=== PATIENT | male | born 1985 | race Caucasian/White ===

== ENCOUNTER 2019-01-09 18:47 | Emergency (ER) | payer SELFPAY ==
[~2019-01-09] VITALS: Ht 187.9 cm; Wt 98.0 kg
[2019-01-09] MEDS ORDERED: LIDOCAINE 1% INJ 20 ML 20 ML VIAL ONE (18:48)
[2019-01-09] MEDS ORDERED: LIDOCAINE 1% INJ 20 ML 20 ML VIAL INJ ONE (19:00)
--- NOTE | 2019-01-09 19:19 | ED Upper Extremity ---
General Chief Complaint: Laceration Stated Complaint: R HAND THUMB INJ Source: patient Exam Limitations: no limitations History of Present Illness Date Seen by Provider: Jan 09, 2019 Time Seen by Provider: 19:16 Initial Comments To ER by private vehicle with reports of a laceration to the right thumb that occurred earlier today while at work after a piece of sheet metal cut him, about 3 PM. Tetanus is up-to-date within the past 5 years he states, this is not Workmen's Comp. he states. He is right-hand dominant Onset: just prior to arrival Severity: moderate Pain/Injury Location: right hand, right thumb Modifying Factors: Improves With Movement Allergies and Home Medications Allergies Coded Allergies: No Known Drug Allergies (Unverified , 01/09/19) Patient Home Medication List Home Medication List Reviewed: Yes Review of Systems Constitutional: see HPI EENTM: see HPI Respiratory: no symptoms reported Cardiovascular: no symptoms reported Genitourinary: no symptoms reported Musculoskeletal: no symptoms reported Skin: no symptoms reported Psychiatric/Neurological: No Symptoms Reported Past Bivuxin-Vaxqcy-Tvpgmi Hx Patient Social History Recent Foreign Travel: No Contact w/Someone Who Travel: No Physical Exam Vital Signs Capillary Refill : Height, Weight, BMI Height: '" Weight: lbs. oz. kg; BMI Method: General Appearance: WD/WN, no apparent distress HEENT: PERRL/EOMI, normal ENT inspection Respiratory: no respiratory distress, no accessory muscle use Shoulder: normal inspection, non-tender Elbow/Forearm: normal inspection, non-tender Wrist: Yes normal inspection, Yes non-tender Hand: Right, laceration (2 separate 2 semi-lacerations, one of the dorsal aspect proximal phalanx right thumb down to the subcutaneous tissues, extensor tendon is not involved. Separate 2 semi-laceration over the distal aspect of the first metacarpal.) Neurologic/Tendon: normal sensation, normal motor functions, normal tendon functions Neurologic/Psychiatric: alert, normal mood/affect, oriented x 3 Skin: normal color, warm/dry Procedures/Interventions Wound Location: Upper Extremities Wound Length (cm): 4 Wound's Depth, Shape: linear, sub Q Wound Explored: clean Irrigated w/ Saline (ccs): 40 Anesthesia: 1% Lidocaine Suture: Prolene Suture Size: 4-0 Number of Sutures: 10 Layer Closure?: 1 Number Deep Layer Sutures: 0 Progress Anesthetized locally with a total of 6 mL of 1% lidocaine without epinephrine buffered with sodium bicarbonate and a 1-10 ratio. Area was then scrubbed with waxing/saline solution, no foreign bodies identified, area irrigated then closed with a total of 10 simple interrupted sutures size 4-0 Prolene. Covered with anabolic ointment, gauze and Coban. Progress/Results/Core Measures Results/Orders My Orders Orders - EDITH WOOTEN APRN Lidocaine 1% Inj 20 Ml (Xylocaine 1% Inj (01/09/19 19:00) Lidocaine 1% Inj 20 Ml (Xylocaine 1% Inj (01/09/19 18:48) Departure Impression Primary Impression: Hand laceration Qualified Codes: S61.411A - Laceration without foreign body of right hand, initial encounter Disposition: 01 HOME, SELF-CARE Condition: Stable Departure-Patient Inst. Decision time for Depature: 19:20 Referrals: NO,LOCAL PHYSICIAN (PCP/Family) Primary Care Physician Patient Instructions: Laceration Repair With Stitches (DC) Add. Discharge Instructions: Leave this dressing in place clean and dry until tomorrow. Tomorrow, you can wash it gently with soap and water starting tomorrow. Do not soak it beneath water however such as a [place] stream pond or swimming pool until the stitches have been removed. Return to ER in about 10 days to have the stitches removed. All discharge instructions reviewed with patient and/or family. Voiced understanding. Scripts Hydrocodone/Acetaminophen ([place] 5-325 Tablet) 1 Each Tablet 1 TAB PO Q6H for Pain MDD 10 TABS for 7 Days, #5 TAB Prov: EDITH WOOTEN APRN 01/09/19 Cephalexin (Keflex) 500 Mg Capsule 500 MG PO TID, #21 CAP Prov: EDITH WOOTEN APRN 01/09/19 Images Extremities-Upper 1 - Other-See Progress Note 2 - EDITH WOOTEN APRN Jan 09, 2019 19:19
[2019-01-09] MEDS ORDERED: CEPH-507 PO (19:21)
[2019-01-09] MEDS ORDERED: HYDR-4226 PO (19:22)
[2019-01-09 19:25] VITALS: BP 145/80
== END 2019-01-09 19:25 | disposition home or self-care (01) ==
LOC: ER 18:48
DX: S61.411A Laceration without foreign body of right hand, initial encounter (principal); W26.8XXA Contact with other sharp object(s), not elsewhere classified, initial encounter; Y92.59 Other trade areas as the place of occurrence of the external cause
CPT/HCPCS: 12042

== ENCOUNTER 2019-03-20 08:39 | Inpatient (IN) | payer SELFPAY ==
[2019-03-20] VITALS (18 sets, daily range): BP systolic 99–145; BP diastolic 54–86
[~2019-03-20] VITALS: Ht 187 cm; Wt 97.7 kg
[~2019-03-20 08:39] MED LIST: CEPH-507 PO; HYDR-4226 PO
[2019-03-20] MEDS ORDERED: ASPIRIN 81 MG CHEW (CHILDREN'S ASA) PO ONE (08:45)
[2019-03-20] MEDS ORDERED: morphine INJ 10 MG/ML 1ML (SYR OR VIAL) IV STA (08:45)
[2019-03-20] MEDS ORDERED: LACTATED RINGERS 1,000 ML IV ONE (08:45)
[2019-03-20] MEDS: NITROGLYCERIN 0.4 MG SL TABS BTL 25'S SL PRN ×3 (08:53→09:25)
[2019-03-20] MEDS ORDERED: ONDANSETRON 4 MG/2 ML (SDV) Z0FRAN ONE ×2 (08:58→10:32)
--- NOTE | 2019-03-20 08:59 | ED Chest Pain ---
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 Nursing Sepsis Screen: No Definite Risk Source: patient History of Present Illness Date Seen by Provider: Mar 20, 2019 Time Seen by Provider: 08:40 Initial Comments Here with report of central chest pain that started 10 minutes prior to arrival. States he was driving at the time. Arrives sweating with report of nausea and vomiting. Never had anything like this before. States that he may have high blood pressure but is not treated. Otherwise no other significant medical problems. He did drink a fair amount of beer last night but doesn't drink typically. Does not use drugs although does have history. States there is family history of heart disease. Timing/Duration: 1/2 hour Severity/Quality: moderate, severe, pressure Location: central Radiation: no radiation Activities at Onset: none Prior CP/Workup: no prior chest pain, no prior cardiac workup Modifying Factors: worse with movement ASA po MUSIC EDUCATION DIRECTOR: No NTG SL MUSIC EDUCATION DIRECTOR: No Associated Symptoms: No abdominal pain, No back pain; diaphoresis, nausea/vomiting; No shortness of breath, No weakness Allergies and Home Medications Allergies Coded Allergies: No Known Drug Allergies (Unverified , 01/09/19) Patient Home Medication List Home Medication List Reviewed: Yes Review of Systems Review of Systems Constitutional: see HPI EENTM: No Symptoms Reported Respiratory: See HPI Cardiovascular: See HPI, Chest Pain; Denies Irregular Heart Rate Gastrointestinal: See HPI; Denies Abdominal Pain, Denies Diarrhea Genitourinary: No Symptoms Reported Musculoskeletal: no symptoms reported Skin: no symptoms reported Psychiatric/Neurological: No Symptoms Reported All Other Systems Reviewed Negative Unless Noted: Yes Past Imbbohg-Xgyuog-Tkanez Hx Past Med/Social Hx: Reviewed Nursing Past Med/Soc Hx Patient Social History Alcohol Use: Occasionally Uses Alcohol Beverage of Choice: Beer Recreational Drug Use: No (past history of methamphetamine several years ago) Smoking Status: Current Everyday Smoker Recent Foreign Travel: No Contact w/Someone Who Travel: No Recent Infectious Disease Expo: No Recent Hopitalizations: No Immunizations Up To Date Tetanus Booster (TDap): Less than 5yrs Seasonal Allergies Seasonal Allergies: No Past Medical History Surgeries: Yes Appendectomy Respiratory: No Cardiac: No Neurological: No Genitourinary: No Gastrointestinal: No Musculoskeletal: No Endocrine: No HEENT: No Cancer: No Psychosocial: Yes Anxiety Integumentary: No Blood Disorders: No Family Medical History Reviewed Nursing Family Hx Heart Disease Physical Exam Vital Signs Vital Signs - First Documented 03/20/19 08:39 Temp 37.0 Pulse 64 Resp 16 Pulse Ox 100 O2 Delivery Room Air Capillary Refill : Less Than 3 Seconds Height, Weight, BMI Height: '" Weight: lbs. oz. kg; 27.00 BMI Method: General Appearance: No Apparent Distress, WD/WN, Moderate Distress HEENT: PERRL/EOMI, Pharynx Normal Neck: Non Tender, Supple Respiratory: Lungs Clear, Normal Breath Sounds Cardiovascular: Regular Rate, Rhythm, No Murmur Gastrointestinal: Non Tender, Soft Extremity: Normal Range of Motion, Non Tender Neurologic/Psychiatric: Alert, Oriented x3 Skin: Normal Color, Diaphoresis, Other (does have abrasions to bilateral hands that he states is from punching a wall last night.) Procedures/Interventions Suture Size: 4-0 Progress/Results/Core Measures Results/Orders Lab Results Laboratory Tests Test 03/20/19 08:55 Range/Units White Blood Count 8.6 4.3-11.0 10^3/uL Red Blood Count 4.84 4.35-5.85 10^6/uL Hemoglobin 15.3 13.3-17.7 G/DL Hematocrit 43 40-54 % Mean Corpuscular Volume 89 80-99 FL Mean Corpuscular Hemoglobin 32 25-34 PG Mean Corpuscular Hemoglobin Concent 35 32-36 G/DL Red Cell Distribution Width 12.2 10.0-14.5 % Platelet Count 314 130-400 10^3/uL Mean Platelet Volume 9.3 7.4-10.4 FL Neutrophils (%) (Auto) 46 42-75 % Lymphocytes (%) (Auto) 36 12-44 % Monocytes (%) (Auto) 12 0-12 % Eosinophils (%) (Auto) 6 0-10 % Basophils (%) (Auto) 1 0-10 % Neutrophils # (Auto) 4.0 1.8-7.8 X 10^3 Lymphocytes # (Auto) 3.1 1.0-4.0 X 10^3 Monocytes # (Auto) 1.0 0.0-1.0 X 10^3 Eosinophils # (Auto) 0.5 H 0.0-0.3 10^3/uL Basophils # (Auto) 0.1 0.0-0.1 10^3/uL My Orders Orders - GISELLE HUGHES MD Cbc With Automated Diff (03/20/19 08:45) Magnesium (03/20/19 08:45) Chest 1 View, Ap/Pa Only (03/20/19 08:45) Ekg Tracing (03/20/19 08:45) Comprehensive Metabolic Panel (03/20/19 08:45) Myoglobin Serum (03/20/19 08:45) Protime With Inr (03/20/19 08:45) Partial Thromboplastin Time (03/20/19 08:45) O2 (03/20/19 08:45) Monitor-Rhythm Ecg Trace Only (03/20/19 08:45) Lipid Panel (03/21/19 06:00) Ed Iv/Invasive Line Start (03/20/19 08:45) Troponin I (03/20/19 08:45) Nitroglycerin 0.4 Mg Btl 25's (Nitrostat (03/20/19 08:45) Aspirin Chewable Tablet (Baby Aspirin Ch (03/20/19 08:45) Morphine Injection (Morphine Injection (03/20/19 08:45) Ed Iv/Invasive Line Start (03/20/19 08:45) Lactated Ringers (Lr 1000 Ml Iv Solution (03/20/19 08:45) Ondansetron Injection (Zofran Injectio (03/20/19 09:00) Ondansetron Injection (Zofran Injectio (03/20/19 08:58) Medications Given in ED Current Medications Medications Dose Ordered Sig/Yaneli Route Start Time Stop Time Status Last Admin Dose Admin Aspirin 324 mg ONCE ONCE PO 03/20/19 08:45 03/20/19 08:47 DC 03/20/19 08:53 324 MG Lactated Ringer's 1,000 ml @ 0 mls/hr Q0M ONCE IV 03/20/19 08:45 03/20/19 08:47 DC 03/20/19 08:55 1,000 MLS/HR Nitroglycerin 0.4 mg UD PRN SL 03/20/19 08:45 03/20/19 09:17 0.4 MG Ondansetron HCl 8 mg ONCE ONCE IVP 03/20/19 09:00 03/20/19 09:01 DC 03/20/19 09:02 8 MG Vital Signs/I&O 03/20/19 08:39 Temp 37.0 Pulse 64 Resp 16 B/P (MAP) Pulse Ox 100 O2 Delivery Room Air Progress Progress Note : Progress Note Seen and evaluated. EKG done on arrival and does show findings concerning for acute ME with ST elevation in the inferior leads. IV 2, labs, EKG and chest x- ray ordered. I did page Dr. Cooney at 0845. I did discuss the case with Dr. Cooney at 0852. We have activated the Service Car Operator team. ASA 324 mg by mouth orde red. Nitroglycerin sublingual and morphine 2 mg IV ordered for pain. LR 1 L bolus. 09: Patient vomiting and was given Zofran 8 mg IV. He did receive one nitroglycerin which did help some with the pain but his blood pressure dropped from 140s to 105 systolic. We will hold further nitroglycerin at this point. Pain is down to a 7 out of 10. Monitor patient. Initial ECG Impression Date: Mar 20, 2019 Initial ECG Impression Time: 08:42 Initial ECG Rate: 60 Initial ECG Rhythm: Normal Sinus Initial ECG Impression: Acute ME Comment Sinus rhythm with normal axis. ST elevation noted in inferior leads specially lead [address] depression noted in aVL with T-wave inversion in V2. Consideration for inferior and posterior acute ME. Interpreted by me. Diagnostic Imaging Diagonstic Imaging: Xray Plain Films/CT/US/NM/MRI: chest Comments [facility]. POS [place], [place] POS NAME: SABIGISELLE Fontanez [facility] REC#: [id number] PT STATUS: [facility] [place] : 1985 PHYSICIAN: GISELLE HUGHES MD ADMIT DATE: 03/20/19/CATH Draft POSDate of Exam:03/20/19 CHEST 1 VIEW, AP/PA ONLY PATIENT HISTORY: Chest pain. TECHNIQUE: Single frontal view of the chest. COMPARISON: None FINDINGS: The lung volumes are normal. No focal consolidation is seen. No large pleural effusion or pneumothorax is seen. The cardiomediastinal silhouette is normal in size and contour. No acute osseous abnormality is seen. IMPRESSION: No acute pulmonary abnormality seen. Dictated on workstation # [id number] Dict: 03/20/19914 Trans: 03/20/19916 [facility] [id number] Interpreted by: VIVIAN RICKETTS MD Electronically signed by: Departure Communication (Admissions) Time/Spoke to Admitting Phy: 08:52 Impression Primary Impression: Acute inferior myocardial infarction Disposition: ADMITTED INPATIENT Condition: Stable Admissions Decision to Admit Reason: Admit from ER (General) Decision to Admit/Date: Mar 20, 2019 Time/Decision to Admit Time: 08:52 Departure-Patient Inst. Referrals: NO,LOCAL PHYSICIAN (PCP/Family) Primary Care Physician GISELLE HUGHES MD Mar 20, 2019 08:59 POS
[2019-03-20] MEDS ORDERED: ONDANSETRON 4 MG/2 ML (SDV) Z0FRAN IVP ONE (09:00)
[2019-03-20 09:11] LABS: BASOPHILS # (AUTO) 0.1 10^3/uL (0.0-0.1); BASOPHILS % (AUTO) 1 % (0-10); EOSINOPHILS # (AUTO) 0.5 10^3/uL (0.0-0.3); EOSINOPHILS % (AUTO) 6 % (0-10); HEMATOCRIT 43 % (40-54); HEMOGLOBIN 15.3 G/DL (13.3-17.7); LYMPHOCYTES # (AUTO) 3.1 X 10^3 (1.0-4.0); LYMPHOCYTES % (AUTO) 36 % (12-44); MEAN CORPUSCULAR HEMOGLOBIN 32 PG (25-34); MEAN CORPUSCULAR HGB CONC 35 G/DL (32-36); MEAN CORPUSCULAR VOLUME 89 FL (80-99); MEAN PLATELET VOLUME 9.3 FL (7.4-10.4); MONOCYTES % (AUTO) 12 % (0-12); NEUTROPHILS % (AUTO) 46 % (42-75); PLATELET COUNT 314 10^3/uL (130-400); RED CELL DISTRIBUTION WIDTH 12.2 % (10.0-14.5); WHITE BLOOD COUNT 8.6 10^3/uL (4.3-11.0)
--- NOTE | 2019-03-20 09:17 | Diagnostic Imaging Report ---
PATIENT HISTORY: Chest pain. TECHNIQUE: Single frontal view of the chest. COMPARISON: None FINDINGS: The lung volumes are normal. No focal consolidation is seen. No large pleural effusion or pneumothorax is seen. The cardiomediastinal silhouette is normal in size and contour. No acute osseous abnormality is seen. IMPRESSION: No acute pulmonary abnormality seen. Dictated by: Dictated on workstation # [id number]
[2019-03-20 09:19] LABS: PROTHROMBIN TIME PATIENT 13.2 SEC (12.2-14.7)
[2019-03-20] MEDS ORDERED: MIDAZOLAM 5 MG/5 ML (VERSED) VIAL ONE (09:22)
[2019-03-20] MEDS ORDERED: fentaNYL INJECTION 100 MCG/2 ML AMP ONE (09:23)
[2019-03-20] MEDS ORDERED: NS IV 1000 ML 1,000 ML ONE (09:23)
[2019-03-20 09:26] LABS: ALANINE AMINOTRANSFERASE 22 U/L (0-55); ALBUMIN 4.3 GM/DL (3.2-4.5); ALKALINE PHOSPHATASE 74 U/L (40-136); BILIRUBIN,TOTAL 0.5 MG/DL (0.1-1.0); BUN/CREATININE RATIO 10; CALCIUM 9.1 MG/DL (8.5-10.1); CARBON DIOXIDE 21 MMOL/L (21-32); CHLORIDE 105 MMOL/L (98-107); CREATININE SERUM 0.97 MG/DL (0.60-1.30); GFR ESTIMATED > 60; GLUCOSE 116 MG/DL (70-105); MAGNESIUM 1.9 MG/DL (1.6-2.4); POTASSIUM 3.6 MMOL/L (3.6-5.0); SODIUM 141 MMOL/L (135-145); TOTAL PROTEIN 7.1 GM/DL (6.4-8.2)
[2019-03-20] MEDS ORDERED: LIDOCAINE 1% INJ 20 ML 20 ML VIAL ONE ×2 (09:26→09:39)
[2019-03-20] MEDS ORDERED: HEParin (CATH LAB) 2,000 ML IV ONE (09:27)
[2019-03-20] MEDS ORDERED: HEParin 1000 UNIT/ML (10ML VIAL) FOR BOLUS ONE (09:38)
[2019-03-20] MEDS ORDERED: NITRO DRIP 25000 MCG/D5W 250 ML IV ONE (09:38)
[2019-03-20] MEDS ORDERED: ATROPINE INJECTION 1 MG/10 ML SYR (ABBOTT) ONE (09:47)
[2019-03-20] MEDS ORDERED: EPTIFIBATIDE BOLUS 20 ML IV ONE (09:47)
[2019-03-20] MEDS ORDERED: DOPamine DRIP 250 ML IV ONE (09:50)
[2019-03-20] MEDS ORDERED: CLOPIDOGREL 300 MG (PLAVIX) TABLET PO ONE (10:13)
[2019-03-20] MEDS ORDERED: NS IV 1000 ML 1,000 ML IV SCH (10:26)
[2019-03-20] MEDS ORDERED: ACETAMINOPHEN 325 MG TABLET PO PRN (10:30)
[2019-03-20] MEDS ORDERED: PATIENT MAY USE OWN MEDS, ALL PO SCH (10:30)
[2019-03-20] MEDS ORDERED: TEMAZEPAM 15 MG (RESTORIL) CAP PO PRN (10:30)
--- NOTE | 2019-03-20 10:42 | Cardiac Procedure Note-CS/ASA ---
Pre-Procedure Note Pre-Op Procedure Note H&P Reviewed The H&P was reviewed, patient examined and no changes noted. Date H&P Reviewed: Mar 20, 2019 Time H&P Reviewed: 09:30 Conscious Sedation Pre-Proced Time 09:30 ASA Score 3 For ASA 3 and 4: Consider anesthesia and medical clearance. Also, for patients with a history of failed moderate sedation consider anesthesia. Airway Lungs Heart ASA score ASA 1: a normal healthy patient ASA 2: a patient with a mild systemic disease (mid diabetes, controlled hypertension, obesity ASA 3: a patient with a severe systemic disease that limits activity (angina, COPD, prior Myocardial infarction) ASA 4: a patient with an incapacitating disease that is a constant threat to life (CHF, renal failure) ASA 5: a moribund patient not expected to survive 24 hrs. (ruptured aneurysm) ASA 6: a declared brain- patient whose organs are being harvested. For emergent operations, add the letter E after the classification Mallampati Classification Grade 2 Sedation Plan Analgesia, Amnesia, Plan communicated to team members, Discussed options with patient/fam, Discussed risks with patient/fam The patient is an appropriate candidate to undergo the planned procedure, sedation, and anesthesia. The patient immediately re-assessed prior to indication. MAREN PARR MD FACP FAC CCDS Mar 20, 2019 10:42 POS
--- NOTE | 2019-03-20 11:14 | CARDIAC CATHETERIZATION ---
DATE OF SERVICE: 03/20/2019 CARDIAC CATHETERIZATION AND CORONARY INTERVENTION REPORT The patient is a 34-year-old man who presented with chest pain and the electrocardiogram was suggestive of acute ST elevation myocardial infarction in the inferior wall. Emergency cardiac catheterization was carried out after having obtained an informed consent. DESCRIPTION OF PROCEDURE: He was brought to the cardiac catheterization laboratory. Right groin was prepared and draped in the usual sterile fashion. Lidocaine 1% was used for local anesthesia. Modified Seldinger technique was used to advance a 6-Nigerien sheath in the right femoral artery. A 6-Nigerien JL4 catheter was used for left coronary angiography. A 6-Nigerien JR4 catheter was used for right coronary angiography. This was followed by percutaneous intervention to the right coronary artery that is described below. Following percutaneous intervention, pigtail catheter was used for left heart catheterization and left ventricular angiography. At the end of the procedure, angiography of the right femoral artery was carried out through the sheath and Mynx was used to achieve hemostasis. He tolerated the procedure well. PERCUTANEOUS INTERVENTION OF THE RIGHT CORONARY ARTERY: We used a 6-Nigerien JR4 guide catheter with side holes. We used a ChoICE floppy wire to cross the proximal lesion and the complete occlusion in the distal right coronary artery. We carried out balloon angioplasty at the lesions with Emerge 2.0 x 20 mm balloon. We stented the distal lesion with Alpine Xience 3.0 x 20 mm stent. This was later post-dilated with NC Quantum 3.5 x 15 mm balloon. This was done because the proximal portion of the stent appeared slightly under deployed. Following ballooning with NC Quantum, the stent is well deployed. The proximal lesion was stented with Alpine Xience 3.0 x 33 mm stent that was deployed and the balloon was inflated to 20 atmospheres. Subsequent angiography revealed no significant residual stenosis and flow throughout the vessel is normal. The flow in the distal vessel prior to intervention was MARJAN 0. The flow in the distal vessel following angioplasty and stenting is MARJAN 3. HEMODYNAMICS: Left ventricular end-diastolic pressure following coronary angiography was 16 mmHg. There is no significant pressure gradient on pullback across the aortic valve. Ascending aortic pressure was 99/62 with a mean of 78 mmHg. CORONARY ANGIOGRAPHY: Left main coronary artery is free of significant disease. Left anterior descending artery is free of significant disease. Left circumflex artery is free of significant disease. Right coronary artery had 80% to 90% long proximal stenosis and complete occlusion in the distal vessel. These lesions were successfully intervened on as described above. Following intervention, as described above, there is no significant residual stenosis and there is normal distal flow in the right coronary artery. LEFT VENTRICULAR ANGIOGRAPHY: Left ventricular angiography was carried out in the right anterior oblique projection. Global left ventricular systolic function is well preserved. Left ventricular ejection fraction approximately 50. CONCLUSIONS: 1. Coronary artery disease primarily consisting of 80% to 90% proximal stenosis and complete distal occlusion of the right coronary artery that was successfully treated with balloon angioplasty and stenting. Following deployment of Alpine Xience 3.0 x 33 mm stent in the proximal portion and 3.0 x 20 mm stent in the distal portion, there is no significant residual stenosis and flow throughout the vessel is normal. The rest of the coronary vessels have no significant obstructive disease. 2. Well preserved global left ventricular systolic function with an ejection fraction approximately 50%. 3. Mild elevation of left ventricular end-diastolic pressure. DISCUSSION AND RECOMMENDATIONS: Dual antiplatelet therapy has been initiated. Statins have been initiated. Beta nirmala therapy has been initiated. We have advised him to quit smoking immediately and completely. 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
[2019-03-20] MEDS ORDERED: meTOproloL SUCCINATE 50 MG (TOPROL XL) TAB PO SCH (12:00)
--- NOTE | 2019-03-20 12:41 | Cardiology History & Physical ---
HPI-Cardiology Cardiology H&P Date of Admission 03/20/19 Primary Care Physician Josefa,Local Physician Attending Physician Kevin Cooney MD, MA FACP [facility] CCDS Consulting Physician HEMA CC: Chest pain HPI: 34 yo with sudden onset of chest pain this am, present for 1/2 - 1 hour at time of presentation, midsternal, mod in intensity, pressure-like, radiating to shoulders, associated with nausea, never experienced before, w/o any aggravating or relieving factors. No prior cp or shortness of breath or palp or syncope or leg swelling Review of Systems-Cardiology Review of Systems Constitutional: No weight loss, No weight gain Eyes: No vision change Ears/Nose/Throat: No ear discharge, No nasal drainage, No recent hearing loss Respiratory: As described under HPI Cardiovascular: As described under HPI Gastrointestinal: No constipation, No diarrhea; nausea; No vomiting Genitourinary: No dysuria, No hematuria, No urine frequency changes Musculoskeletal: No back pain, No joint pain Skin: No rash, No ulcerations Psychiatric/Neurological: No focal weakness, No syncope Hematologic: No bleeding abnormalities All Other Systems Reviewed Negative Unless Noted: Yes TRG-Uwzjww-Hpmiix Hx Patient Social History Alcohol Use: Occasionally Uses Recreational Drug Use: No (past history of methamphetamine several years ago) Smoking Status: Current Everyday Smoker Recent Foreign Travel: No Recent Infectious Disease Expo: No Immunizations Up To Date Tetanus Booster (TDap): Less than 5yrs Past Medical History PMH As described under Assessment. Family Medical History Family Medical History: Report fam h/o early CAD (father) Allergies and Home Medications Allergies Coded Allergies: No Known Drug Allergies (Unverified , 01/09/19) Patient Home Medication List Home Medication List Reviewed: Yes Physical Exam-Cardiology Physical Exam Vital Signs/I&O 03/20/19 03/20/19 03/20/19 03/20/19 08:39 09:26 10:45 10:46 Temp 37.0 Pulse 64 55 65 Resp 16 16 B/P (MAP) 131/81 99/62 (74) Pulse Ox 100 97 95 O2 Delivery Room Air Room Air Room Air 03/20/19 03/20/19 03/20/19 03/20/19 11:00 11:15 11:30 12:00 Pulse 66 76 77 86 Resp 11 16 B/P (MAP) 113/70 (84) 112/67 (82) 114/65 (81) 130/81 (97) Pulse Ox 96 98 99 100 O2 Delivery Room Air Room Air Room Air Room Air Capillary Refill : Less Than 3 Seconds Constitutional: AAO x 3, well-developed, well-nourished HEENT: EOMI, hearing is well preserved; No xanthelasmas are seen Neck: carotid pulses are 2 + bilaterally, with good upstrokes Respiratory: No accessory muscle use; other (good bilat air entry) Cardiovascular: regular rate-rhythm, S1 and S2, systolic murmur (soft LONNIE at card base) Gastrointestinal: No tender; soft; No guarding, No rebound; audible bowel sounds Extremities: No clubbing, No cyanosis, No significant edema Neurologic/Psychiatric: oriented x 3, other (moves all limbs equally) Skin: No rash on exposed areas, No ulcerations on exposed areas Data Review Labs Laboratory Tests 03/20/19 08:55: White Blood Count 8.6, Red Blood Count 4.84, Hemoglobin 15.3, Hematocrit 43, Mean Corpuscular Volume 89, Mean Corpuscular Hemoglobin 32, Mean Corpuscular Hemoglobin Concent 35, Red Cell Distribution Width 12.2, Platelet Count 314, Mean Platelet Volume 9.3, Neutrophils (%) (Auto) 46, Lymphocytes (%) (Auto) 36, Monocytes (%) (Auto) 12, Eosinophils (%) (Auto) 6, Basophils (%) (Auto) 1, Neutrophils # (Auto) 4.0, Lymphocytes # (Auto) 3.1, Monocytes # (Auto) 1.0, Eosinophils # (Auto) 0.5H, Basophils # (Auto) 0.1, Prothrombin Time 13.2, INR Comment 1.0, Activated Partial Thromboplast Time 26, Sodium Level 141, Potassium Level 3.6, Chloride Level 105, Carbon Dioxide Level 21, Anion Gap 15H, Blood Urea Nitrogen 10, Creatinine 0.97, Estimat Glomerular Filtration Rate > 60, BUN/Creatinine Ratio 10, Glucose Level 116H, Calcium Level 9.1, Corrected Calcium 8.9, Magnesium Level 1.9, Total Bilirubin 0.5, Aspartate Amino Transf (AST/SGOT) 22, Alanine Aminotransferase (ALT/SGPT) 22, Alkaline Phosphatase 74, Myoglobin 44.7, Troponin I 0.053H, Total Protein 7.1, Albumin 4.3 Laboratory Tests 03/20/19 08:55 A/P-Cardiology Assessment/Admission Diagnosis Ac inf wall [place]. Card cath of 03/20/19 showed severe prox disease (treated with Alp Xience 3 x 33 stent) and total distal occlusion of the RCA (treated with Alp Xience 3 x 20 stent). Other cors did not show significant dz. LVEF 50%. LVEDP 16 mmHg Chronic tobacco use Admission Status: Inpatient Order (span 2 midnights) Reason for Inpatient Admission: Ac [place] Discussion and Recomendations * PCI carried out (see above) * Treat with DAPT * BB and CONNER-inhib if bp allows * Statin * Advised to refrain from tobacco use * Keep on tele Clinical Quality Measures AMI/AHF: ASA po Prior to arrival: KEVIN Cormier MD FACP FAC CCDS Mar 20, 2019 12:41 POS
[2019-03-21] VITALS (8 sets, daily range): BP systolic 119–146; BP diastolic 63–96
[2019-03-21 03:48] LABS: HEMOGLOBIN 13.5 G/DL (13.3-17.7); MEAN PLATELET VOLUME 9.7 FL (7.4-10.4); WHITE BLOOD COUNT 11.5 10^3/uL (4.3-11.0)
[2019-03-21 04:14] LABS: ALANINE AMINOTRANSFERASE 22 U/L (0-55); ALBUMIN 3.8 GM/DL (3.2-4.5); ALKALINE PHOSPHATASE 72 U/L (40-136); BILIRUBIN,TOTAL 0.3 MG/DL (0.1-1.0); BUN/CREATININE RATIO 7; CALCIUM 8.4 MG/DL (8.5-10.1); CARBON DIOXIDE 22 MMOL/L (21-32); CHLORIDE 106 MMOL/L (98-107); CHOLESTEROL 172 MG/DL (< 200); CREATININE SERUM 0.81 MG/DL (0.60-1.30); GFR ESTIMATED > 60; GLUCOSE 100 MG/DL (70-105); HDL CHOLESTEROL 39 MG/DL (40-60); MAGNESIUM 1.8 MG/DL (1.6-2.4); POTASSIUM 3.7 MMOL/L (3.6-5.0); SODIUM 139 MMOL/L (135-145); TOTAL PROTEIN 6.5 GM/DL (6.4-8.2); TRIGLYCERIDES 259 MG/DL (<150); VLDL CHOLESTEROL 52 MG/DL (5-40)
[2019-03-21 04:15] LABS: CHOLESTEROL 170 MG/DL (< 200); HDL CHOLESTEROL 41 MG/DL (40-60); TRIGLYCERIDES 255 MG/DL (<150); VLDL CHOLESTEROL 51 MG/DL (5-40)
--- NOTE | 2019-03-21 05:54 | Pulmonary Consultation ---
History of Present Illness History of Present Illness Date of Admission Allergies and Home Medications Allergies Coded Allergies: No Known Drug Allergies (Unverified , 01/09/19) Past Dwmhmzj-Bzffha-Isjmhp Hx Past Med/Social Hx: Reviewed Nursing Past Med/Soc Hx Patient Social History Alcohol Use: Occasionally Uses Alcohol Beverage of Choice: Beer Recreational Drug Use: No (past history of methamphetamine several years ago) Smoking Status: Current Everyday Smoker Recent Foreign Travel: No Contact w/Someone Who Travel: No Recent Infectious Disease Expo: No Recent Hopitalizations: No Immunizations Up To Date Tetanus Booster (TDap): Less than 5yrs Seasonal Allergies Seasonal Allergies: No Past Medical History Surgeries: Yes Appendectomy Respiratory: No Cardiac: No Neurological: No Genitourinary: No Gastrointestinal: No Musculoskeletal: No Endocrine: No HEENT: No Cancer: No Psychosocial: Yes Anxiety Integumentary: No Blood Disorders: No Family Medical History Reviewed Nursing Family Hx Heart Disease Sepsis Event Evaluation Height, Weight, BMI Height: '" Weight: lbs. oz. kg; 27.00 BMI Method: Exam Exam Vital Signs Date Time Temp Pulse Resp B/P (MAP) Pulse Ox O2 Delivery O2 Flow Rate FiO2 03/21/19 05:30 69 17 135/87 (103) 99 Room Air 03/21/19 05:00 87 Room Air 03/21/19 04:00 79 11 136/77 (96) 100 Room Air 03/21/19 03:00 81 131/96 (108) 99 Room Air 03/21/19 02:00 74 25 119/63 (81) 97 Room Air 03/21/19 01:00 90 11 135/85 (102) 99 Room Air 03/21/19 01:00 78 03/21/19 00:00 80 25 146/76 (99) 97 Room Air 03/21/19 00:00 37.2 03/20/19 23:00 67 21 130/82 (98) 100 Room Air 03/20/19 22:00 72 21 128/75 (92) 96 Room Air 03/20/19 21:00 69 21 126/71 (89) 99 Room Air 03/20/19 20:00 96 Room Air 03/20/19 20:00 77 22 144/84 (104) 99 Room Air 03/20/19 19:12 83 12 145/76 (99) Room Air 03/20/19 19:00 76 28 135/82 (99) 98 Room Air 03/20/19 19:00 76 03/20/19 18:00 79 18 135/86 (102) 100 Room Air 03/20/19 17:00 80 36 127/54 (78) 100 Room Air 03/20/19 16:00 74 136/83 (100) 100 Room Air 03/20/19 16:00 36.9 03/20/19 15:00 94 15 124/82 (96) 98 Room Air 03/20/19 14:00 95 19 133/81 (98) 99 Room Air 03/20/19 13:00 88 25 133/85 (101) 98 Room Air 03/20/19 12:47 81 03/20/19 12:30 94 16 145/73 (97) 100 Room Air 03/20/19 12:00 86 16 130/81 (97) 100 Room Air 03/20/19 11:30 77 114/65 (81) 99 Room Air 03/20/19 11:15 76 11 112/67 (82) 98 Room Air 03/20/19 11:00 66 113/70 (84) 96 Room Air 03/20/19 10:46 65 03/20/19 10:45 99/62 (74) 95 Room Air 03/20/19 09:26 55 16 131/81 97 Room Air 03/20/19 08:39 37.0 64 16 100 Room Air I & O 03/21/19 07:00 Intake Total 1000 ml Balance 1000 ml Height & Weight Height: '" Weight: lbs. oz. kg; 27.00 BMI Method: General Appearance: No Apparent Distress, WD/WN, Moderate Distress HEENT: PERRL/EOMI, Pharynx Normal Neck: Non Tender, Supple Respiratory: Lungs Clear, Normal Breath Sounds Cardiovascular: Regular Rate, Rhythm, No Murmur Capillary Refill: Less Than 3 Seconds Extremity: Normal Range of Motion, Non Tender Neurologic/Psychiatric: Alert, Oriented x3 Skin: Normal Color, Diaphoresis, Other (does have abrasions to bilateral hands that he states is from punching a wall last night.) Results Lab Laboratory Tests 03/20/19 08:55 03/21/19 03:26 Assessment/Plan Assessment/Plan Acute inferior CT s/p cath with stent placement -Cardiology following CAD tobacco use -Education MARCUS LIZ DO Mar 21, 2019 05:54 POS
--- NOTE | 2019-03-21 07:08 | Diagnostic Imaging Report ---
INDICATION: Acute myocardial infarction COMPARISON: 03/20/2019 FINDINGS: Single view of the chest demonstrates clear lungs bilaterally. The heart is normal. There is no pneumothorax. The osseous structures are normal. IMPRESSION: Negative chest Dictated by: Dictated on workstation # [id number]
[2019-03-21] MEDS ORDERED: ASPIRIN 81 MG CHEW (CHILDREN'S ASA) PO SCH (09:00)
[2019-03-21] MEDS ORDERED: CLOPIDOGREL 75 MG (PLAVIX) TABLET PO SCH (09:00)
[2019-03-21] MEDS ORDERED: meTOproloL SUCCINATE 50 MG (TOPROL XL) TAB PO SCH (09:00)
[2019-03-21] MEDS ORDERED: NICOTINE 21 MG (NICODERM) PATCH TD SCH (09:00)
--- NOTE | 2019-03-21 11:54 | Progress Note - Cardiology ---
Cardiology SOAP Progress Note Subjective: No cp or palp or syncope Mild groin soreness at site of access No leg discoloration or discomfort Able to walk w/o difficulty No shortness of breath No nausea Refuses to stay in the hosp any longer Objective: I&O/Vital Signs 03/21/19 03/21/19 03/21/19 03/21/19 00:00 00:00 01:00 01:00 Temp 37.2 Pulse 80 78 90 Resp 25 11 B/P (MAP) 146/76 (99) 135/85 (102) Pulse Ox 97 99 O2 Delivery Room Air Room Air 03/21/19 03/21/19 03/21/19 03/21/19 02:00 03:00 04:00 05:00 Pulse 74 81 79 87 Resp 25 11 B/P (MAP) 119/63 (81) 131/96 (108) 136/77 (96) Pulse Ox 97 99 100 O2 Delivery Room Air Room Air Room Air Room Air 03/21/19 03/21/19 03/21/19 03/21/19 05:30 06:00 07:00 07:00 Pulse 69 66 70 88 Resp 17 32 25 B/P (MAP) 135/87 (103) 119/66 (83) 142/82 (102) Pulse Ox 99 99 O2 Delivery Room Air Room Air Room Air 03/21/19 08:00 Pulse Ox 96 O2 Delivery Room Air 03/21/19 00:00 Intake Total 1000 ml Balance 1000 ml Groin site without hematoma: Yes Condition: DP/PT pulses palpable Bruising: mild bruising Constitutional: AAO x 3, well-developed, well-nourished Respiratory: No accessory muscle use; other (good bilat air entry) Cardiovascular: regular rate-rhythm, S1 and S2, systolic murmur (soft LONNIE at card base) Gastrointestional: No tender; soft; No guarding, No rebound; audible bowel sounds Extremities: No clubbing, No cyanosis, No significant edema Neurologic/Psychiatric: oriented x 3, other (moves all limbs equally) Skin: No rash on exposed areas, No ulcerations on exposed areas Results/Procedures: Labs Laboratory Tests 03/21/19 03:26: White Blood Count 11.5H, Red Blood Count 4.26L, Hemoglobin 13.5, Hematocrit 39L, Mean Corpuscular Volume 92, Mean Corpuscular Hemoglobin 32, Mean Corpuscular Hemoglobin Concent 35, Red Cell Distribution Width 12.0, Platelet Count 285, Mean Platelet Volume 9.7, Sodium Level 139, Potassium Level 3.7, Chloride Level 106, Carbon Dioxide Level 22, Anion Gap 11, Blood Urea Nitrogen 6L, Creatinine 0.81, Estimat Glomerular Filtration Rate > 60, BUN/Creatinine Ratio 7, Glucose Level 100, Calcium Level 8.4L, Corrected Calcium 8.6, Phosphorus Level 2.5, Magnesium Level 1.8, Total Bilirubin 0.3, Aspartate Amino Transf (AST/SGOT) 36H, Alanine Aminotransferase (ALT/SGPT) 22, Alkaline Phosphatase 72, Total Protein 6.5, Albumin 3.8, Triglycerides Level 259H, Cholesterol Level 172, LDL Cholesterol Direct 111, VLDL Cholesterol 52H, HDL Cholesterol 39L, Thyroid Stimulating Hormone (TSH) 0.69 Laboratory Tests 03/20/19 08:55 03/21/19 03:26 A/P: Assessment: Ac inf wall [place] on 03/20/19. Card cath of 03/20/19 showed severe prox disease (treated with Alp Xience 3 x 33 stent) and total distal occlusion of the RCA (treated with Alp Xience 3 x 20 stent). Other cors did not show significant dz. LVEF 50%. LVEDP 16 mmHg Chronic tobacco use Echo of 03/21/19: LVEF 55-60%, inferoseptal hypokinesis, RVSP 21 mmHg Plan: * We have recommended him to stay in the hospital 24 more hours. We have discussed this in detail, including the rationale of this recommendation. He understands all issues and refuses to do so * We have advised compliance with meds, in particular his DAPT. He states he will do so * Advised to refrain completely from smoking. He states he will do so * We have advised return to ER for any recurrence of symptoms or any new symptoms * We have advised outpt cardiac f/u and establishment of primary care. He states he will do so Clinical Quality Measures AMI/AHF: ASA po Prior to arrival: MAREN Cormier MD FACP [facility]S Mar 21, 2019 11:54 POS
[2019-03-21] MEDS ORDERED: CLOP75TA28 PO (11:58)
[2019-03-21] MEDS ORDERED: LISI-556 PO (11:58)
[2019-03-21] MEDS ORDERED: METO-370 PO (11:58)
[2019-03-21] MEDS ORDERED: ATOR80TA76 PO (11:58)
[2019-03-21] MEDS ORDERED: ASPI-999 PO (11:58)
--- NOTE | 2019-03-21 11:58 | Discharge Inst-Post CATH ---
Discharge Inst-CATH/EP Post Cardiac Cath/EP D/C Inst Follow Up/Plan F/u with Dr Cooney in 1-2 weeks No smoking ACTIVITY * Go Home directly and rest. * Limit activity of the leg (or wrist if it was used) for 7 days including aerobics, swimming, jogging, bicycling, etc. * Restrict stair-climbing for 7 days if possible, if not, climb up with your non-cath leg, then bring together on the same step. * Avoid lifting, pushing, pulling or excessive movement of the affected extremity for 7 days. * Customary sexual activity may be resumed after 2 days-use caution not to use a position that strains or causes pain to the affected extremity. * No driving for 24 hours. * NO SMOKING. * Avoid straining for bowel movements for 7 days. * Gentle walking on level ground is allowed. * Returning to work will depend on the type of procedure and the results. Your doctor will discuss this with you. CALL YOUR DOCTOR FOR ANY OF THE FOLLOWING: *If bleeding from the puncture site occurs- Apply gentle pressure to site with clean cloth and call your doctor or EMS. * If a knot or lump forms under the skin, increases in size, or causes pain. * If bruising appears to be worsening or moving further down your leg instead of disappearing. * Temperature above 101 F. CARE OF YOUR GROIN INCISION; * Bruising or purple discoloration of the skin near the puncture site is common. * You may shower only, no bathtub bathing for 5 days. Be careful to avoid slipping as your leg may feel stiff. * If a closure device was used on your femoral artery, please see the attached guide regarding care of the device and your leg. * Leave dressing on FOR 24 hours. CARE OF YOUR WRIST INCISION; * Bruising or purple discoloration of the skin near the puncture site is common. * You may shower. * DO NOT submerge wrist. * Leave dressing on FOR 24 hours. MAREN COONEY MD [facility] CCDS Mar 21, 2019 11:58 POS
--- NOTE | 2019-03-21 11:59 | Discharge Inst-Cardiology ---
Discharge Inst-Cardiac Discharge Medications New Medications: Lisinopril (Lisinopril) 5 Mg Tablet 5 MG PO DAILY, #90 TAB 3 Refills Aspirin (Aspirin) 81 Mg Tab.chew 81 MG PO DAILY for 90 Days, #90 TAB 3 Refills Atorvastatin Calcium (Atorvastatin Calcium) 80 Mg Tablet 80 MG PO HS for 90 Days, #90 TAB 3 Refills Clopidogrel Bisulfate (Clopidogrel) 75 Mg Tablet 75 MG PO DAILY for 90 Days, #90 TAB 3 Refills Metoprolol Succinate (Metoprolol Succinate) 50 Mg Tab.er.24h 50 MG PO DAILY for 90 Days, #90 TAB 3 Refills Patient Instructions Patient Instructions: No smoking MAREN PARR MD FACP [facility] Mar 21, 2019 11:59 POS
--- NOTE | 2019-03-21 12:03 | Cardiology Discharge Summary ---
Diagnosis/Chief Complaint Date of Admission Mar 20, 2019 at 10:41 Date of Discharge 03/21/19 Final/Discharge Diagnosis Ac inf wall [place] on 03/20/19. Card cath of 03/20/19 showed severe prox disease (treated with Alp Xience 3 x 33 stent) and total distal occlusion of the RCA (treated with Alp Xience 3 x 20 stent). Other cors did not show significant dz. LVEF 50%. LVEDP 16 mmHg Chronic tobacco use. He has been advised to quit immediately and completely Echo of 03/21/19: LVEF 55-60%, inferoseptal hypokinesis, RVSP 21 mmHg Chief Complaint/HPI Chief Complaint/HPI CC: Chest pain HPI: 34 yo with sudden onset of chest pain this am, present for 1/2 - 1 hour at time of presentation, midsternal, mod in intensity, pressure-like, radiating to shoulders, associated with nausea, never experienced before, w/o any aggravating or relieving factors. No prior cp or shortness of breath or palp or syncope or leg swelling Hospital course: Please refer to our progress note of today's date (03/21/19) Discharge Summary Discussion & Recommendations Home Medications Reviewed patient Home Medication Reconciliation performed by pharmacy medication reconciliations multi craft maintenance technician and/or nursing. Patients Allergies have been reviewed. Discharge Home Medications: Reviewed and agree with Discharge Medication list on patient's Discharge Instruction sheet Instructions to patient/family F/u with Dr Cooney in 1-2 weeks No smoking Clinical Quality Measures AMI/AHF: ASA po Prior to arrival: MAREN Cormier MD FACP [facility] Mar 21, 2019 12:03 POS
[2019-03-22] MEDS ORDERED: PATCH REMOVAL TP SCH (09:00)
== END 2019-03-21 12:05 | disposition left against medical advice (07) | DRG 247 ==
LOC: EDUNIT# 08:39 → ER 08:40 → CATH 09:06 → ICU 10:41
PROVIDERS: ADMIT Internal Medicine Cardiovascular Disease; ATTEND Internal Medicine Cardiovascular Disease
PROC: 027035Z Dilation of Coronary Artery, One Artery with Two Drug-eluting Intraluminal Devices, Percutaneous Approach (ICD-10-PCS; principal; 2019-03-20)
PROC: 4A023N7 Measurement of Cardiac Sampling and Pressure, Left Heart, Percutaneous Approach (ICD-10-PCS; 2019-03-20)
PROC: B2151ZZ Fluoroscopy of Left Heart using Low Osmolar Contrast (ICD-10-PCS; 2019-03-20)
PROC: B2111ZZ Fluoroscopy of Multiple Coronary Arteries using Low Osmolar Contrast (ICD-10-PCS; 2019-03-20)
DX: I21.19 ST elevation (STEMI) myocardial infarction involving other coronary artery of inferior wall (principal); F17.200 Nicotine dependence, unspecified, uncomplicated; F41.9 Anxiety disorder, unspecified; I25.10 Atherosclerotic heart disease of native coronary artery without angina pectoris
CPT/HCPCS: 36415; 71045; 80053; 80061; 83735; 83874; 84100; 84443; 84484; 85025; 85027; 85610; 85730; 87081; 93005; 93041; 93306; 93458

== ENCOUNTER 2019-03-24 16:57 | Emergency (ER) | payer SELFPAY ==
[~2019-03-24] VITALS: Ht 187.9 cm; Wt 97.7 kg
[~2019-03-24 16:57] MED LIST changes: +ASPI-999 PO; +ATOR80TA76 PO; +CLOP75TA28 PO; +LISI-556 PO; +METO-370 PO
--- NOTE | 2019-03-24 18:19 | ED Abdominal Pain ---
General Chief Complaint: Post OP Complications/Pain Stated Complaint: PAIN WHERE INCISION SITES WERE FOR CATH Nursing Triage Note: Pt amb to triage with c/o postop pain. Pt reports on 03/20/19 he had cardiac cath procedure (Dr. Cooney). Pt reports since procedure, increase in pain to incision site (Rt femoral). Pt "pressure" in incision site while urinating or passing bowel movement. Pt reports discomfort upon lifting Rt lower extremity. Ecchymosis in various stages of healing with mild swelling surrounding incision site. Denies fever or chills. Sepsis Screen: No Definite Risk History of Present Illness Date Seen by Provider: Mar 24, 2019 Time Seen by Provider: 17:45 Initial Comments This is a 34-year-old male that presents to the emergency room with complaints of right lower quadrant/upper pelvic/thigh pain. He had a previous appendectomy. Patient reports that this pain is worse when he attempts to sit up and radiates down his right leg and is much improved when he is not moving. Patient denies nausea, vomiting, shortness of breath or other symptoms. Patient reports having a heart catheter done on 03/20/2019 when he had a inferior wall [place] which he subsequently had stented by Dr. Cooney. Patient's signed out AMA on 03/22/2019. He is taking all medications prescribed at time of his discharge. Patient reports that he has taken 2 Tylenol tablets this morning and an 800 mg ibuprofen 2 hours prior to arrival. Patient reports that he has dysuria as well as having painful bowel movements, states the bowel movements are normal for him and not of concern. Timing/Duration: 12-24 Hours Severity/Quality: Mild Location: RLQ Radiation: Other (right leg) Activities at Onset: None Modifying Factors: Worsens With Defecating; Improves With Lying down; Worsens With Movement Associated Symptoms: Denies Symptoms; No Back Pain, No Chest Pain, No Diaphoresis, No Fever/Chills, No Fatigue, No Headache, No Heartburn, No Nausea/Vomiting, No Rash, No Shortness of Air, No Swelling/Mass in Abdomen, No Syncope, No Weakness, No Other Allergies and Home Medications Allergies Coded Allergies: No Known Drug Allergies (Unverified , 01/09/19) Home Medications Aspirin 81 Mg Tab.chew, 81 MG PO DAILY Prescribed by: MAREN COONEY on 03/21/19 1158 Atorvastatin Calcium 80 Mg Tablet, 80 MG PO HS Prescribed by: MAREN COONEY on 03/21/191157 Cefadroxil 500 Mg Capsule, 500 MG PO BID Prescribed by: DANELLE CLARK on 03/24/191944 Clopidogrel Bisulfate 75 Mg Tablet, 75 MG PO DAILY Prescribed by: MAREN COONEY on 03/21/19 115 Lisinopril 5 Mg Tablet, 5 MG PO DAILY Prescribed by: MAREN COONEY on 03/21/191157 Metoprolol Succinate 50 Mg Tab.er.24h, 50 MG PO DAILY Prescribed by: MAREN COONEY on 03/21/191157 Tramadol HCl 50 Mg Tablet, 50 MG PO Q6H PRN for PAIN Prescribed by: DANELLE CLARK on 03/24/191944 Patient Home Medication List Home Medication List Reviewed: Yes Review of Systems Review of Systems Constitutional: no symptoms reported, see HPI EENTM: No Symptoms Reported, See HPI Respiratory: No Symptoms Reported, See HPI Cardiovascular: No Symptoms Reported, See HPI Gastrointestinal: See HPI, Abdominal Pain Genitourinary: Burning, Other Musculoskeletal: see HPI Skin: no symptoms reported, see HPI Psychiatric/Neurological: No Symptoms Reported, See HPI Endocrine: No Symptoms Reported, See HPI Hematologic/Lymphatic: No Symptoms Reported, See HPI All Other Systems Reviewed Negative Unless Noted: Yes Past Zzovmzl-Ejidop-Krfuii Hx Past Med/Social Hx: Reviewed Nursing Past Med/Soc Hx Patient Social History Alcohol Beverage of Choice: Beer Recent Foreign Travel: No Contact w/Someone Who Travel: No Recent Infectious Disease Expo: No Recent Hopitalizations: No Immunizations Up To Date Tetanus Booster (TDap): Less than 5yrs Seasonal Allergies Seasonal Allergies: No Past Medical History Surgeries: Yes Appendectomy Respiratory: No Cardiac: No Neurological: No Genitourinary: No Gastrointestinal: No Musculoskeletal: No Endocrine: No HEENT: No Cancer: No Psychosocial: Yes Anxiety Integumentary: No Blood Disorders: No Family Medical History Heart Disease Physical Exam Vital Signs Vital Signs - First Documented 03/24/19 17:26 Temp 37.0 Pulse 91 Resp 18 B/P (MAP) 141/82 (101) Pulse Ox 100 O2 Delivery Room Air Capillary Refill : Less Than 3 Seconds Height/Weight/BMI Height: '" Weight: lbs. oz. kg; 27.00 BMI Method: General Appearance: WD/WN, no apparent distress HEENT: PERRL/EOMI, normal ENT inspection, TMs normal, pharynx normal Neck: non-tender, full range of motion, supple, normal inspection Respiratory: chest non-tender, lungs clear, normal breath sounds, no respiratory distress Cardiovascular: normal peripheral pulses, regular rate, rhythm, no edema, no gallop, no JVD, no murmur Peripheral Pulses: 2+ Carotid (R), 2+ Carotid (L), 2+ Femoral (R), 2+ Femoral (L), 2+ Dorsalis Pedis (R), 2+ Left Dors-Pedis (L), 2+ Radial Pulses (R), 2+ Radial Pulses (L) Gastrointestinal: normal bowel sounds, non tender, soft, no organomegaly, no pulsatile mass; No distended, No guarding, No rebound; tenderness (Right lower quad, over iliac crest, tender on light palpation and with use of abdominal or hip flexor muscles.); No hernia, No mass Extremities: normal range of motion, non-tender, normal inspection, no pedal edema, no calf tenderness Back: normal inspection, no CVA tenderness, no vertebral tenderness Male: normal genitalia, no hernia Neurologic/Psychiatric: no motor/sensory deficits, alert, normal mood/affect, oriented x 3 Skin: warm/dry, ecchymosis (to right groin) Lymphatic: no adenopathy Procedures/Interventions Suture Size: 4-0 Progress/Results/Core Measures Results/Orders Lab Results Laboratory Tests Test 03/24/19 18:33 03/24/19 18:35 Range/Units White Blood Count 14.9 H 4.3-11.0 10^3/uL Red Blood Count 4.53 4.35-5.85 10^6/uL Hemoglobin 14.2 13.3-17.7 G/DL Hematocrit 42 40-54 % Mean Corpuscular Volume 92 80-99 FL Mean Corpuscular Hemoglobin 31 25-34 PG Mean Corpuscular Hemoglobin Concent 34 32-36 G/DL Red Cell Distribution Width 12.1 10.0-14.5 % Platelet Count 380 130-400 10^3/uL Mean Platelet Volume 9.7 7.4-10.4 FL Neutrophils (%) (Auto) 75 42-75 % Lymphocytes (%) (Auto) 15 12-44 % Monocytes (%) (Auto) 7 0-12 % Eosinophils (%) (Auto) 3 0-10 % Basophils (%) (Auto) 0 0-10 % Neutrophils # (Auto) 11.2 H 1.8-7.8 X 10^3 Lymphocytes # (Auto) 2.2 1.0-4.0 X 10^3 Monocytes # (Auto) 1.1 H 0.0-1.0 X 10^3 Eosinophils # (Auto) 0.4 H 0.0-0.3 10^3/uL Basophils # (Auto) 0.0 0.0-0.1 10^3/uL Neutrophils % (Manual) 65 % Lymphocytes % (Manual) 24 % Monocytes % (Manual) 6 % Eosinophils % (Manual) 4 % Band Neutrophils 1 % Blood Morphology Comment N Sodium Level 139 135-145 MMOL/L Potassium Level 3.8 3.6-5.0 MMOL/L Chloride Level 103 98-107 MMOL/L Carbon Dioxide Level 25 21-32 MMOL/L Anion Gap 11 5-14 MMOL/L Blood Urea Nitrogen 9 7-18 MG/DL Creatinine 0.87 0.60-1.30 MG/DL Estimat Glomerular Filtration Rate > 60 BUN/Creatinine Ratio 10 Glucose Level 87 70-105 MG/DL Calcium Level 9.9 8.5-10.1 MG/DL Corrected Calcium 8.5-10.1 MG/DL Total Bilirubin 0.7 0.1-1.0 MG/DL Aspartate Amino Transf (AST/SGOT) 36 H 5-34 U/L Alanine Aminotransferase (ALT/SGPT) 52 0-55 U/L Alkaline Phosphatase 84 40-136 U/L Total Protein 8.0 6.4-8.2 GM/DL Albumin 4.6 H 3.2-4.5 GM/DL Urine Color YELLOW Urine Clarity CLEAR Urine pH 5.5 5-9 Urine Specific [place] 1.025 H 1.016-1.022 Urine Protein NEGATIVE NEGATIVE Urine Glucose (UA) NEGATIVE NEGATIVE Urine Ketones NEGATIVE NEGATIVE Urine Nitrite NEGATIVE NEGATIVE Urine Bilirubin NEGATIVE NEGATIVE Urine Urobilinogen 0.2 < = 1.0 MG/DL Urine Leukocyte Esterase NEGATIVE NEGATIVE Urine RBC (Auto) NEGATIVE NEGATIVE Urine RBC NONE /HPF Urine WBC NONE /HPF Urine Crystals NONE /LPF Urine Bacteria NEGATIVE /HPF Urine Casts NONE /LPF Urine Mucus NEGATIVE /LPF Urine Culture Indicated NO My Orders Orders - AMBER,DANELLE [employer]ENDER Cbc With Automated Diff (03/24/19 18:07) Comprehensive Metabolic Panel (03/24/19 18:07) Ua Culture If Indicated (03/24/19 18:07) Ct Abdomen/Pelvis W (03/24/19 18:07) Iohexol Injection (Omnipaque 350 Mg/Ml 1 (03/24/19 18:30) Received Contrast (Hold Metformin- Contr (03/24/19 18:30) Ns (Ivpb) (Sodium Chloride 0.9% Ivpb Bag (03/24/19 18:30) Hydrocodone/Apap 5/325 Tablet (Lortab 5 (03/24/19 18:45) Manual Differential (03/24/19 18:33) Medications Given in ED Current Medications Medications Dose Ordered Sig/Yaneli Route Start Time Stop Time Status Last Admin Dose Admin Acetaminophen/ Hydrocodone Bitart 1 tab ONCE ONCE PO 03/24/19 18:45 03/24/19 18:46 DC 03/24/19 19:17 1 TAB Iohexol 100 ml ONCE ONCE IV 03/24/19 18:30 03/24/19 18:31 DC 03/24/19 19:04 100 ML Sodium Chloride 100 ml ONCE ONCE IV 03/24/19 18:30 03/24/19 18:31 DC 03/24/19 19:04 100 ML Vital Signs/I&O 03/24/19 03/24/19 17:26 19:51 Temp 37.0 37.1 Pulse 91 83 Resp 18 16 B/P (MAP) 141/82 (101) 139/81 (101) Pulse Ox 100 99 O2 Delivery Room Air Room Air Blood Pressure Mean: 101 POS Progress Progress Note : Time: 17:45 Progress Note Patient seen and evaluated, will obtain labs and CT of the abdomen and pelvis with contrast. 1835 hematoma noted in the right groin, findings discussed with patient. He reports improvement in his symptoms after taking Vicodin. [address] Cooney agreed to use Duricef 500 mg twice a day for 5 days. 1939 discharge instructions and return precautions reviewed with the patient. All questions answered. Diagnostic Imaging Diagonstic Imaging: CT Plain Films/CT/US/NM/MRI: abdomen, pelvis Comments NAME: GISELLE CELESTIN [facility] REC#: [id number] PT STATUS: REG ER : 1985 PHYSICIAN: DANELLE CLARK ADMIT DATE: 03/24/19/ER Draft POSDate of Exam:03/24/19 CT ABDOMEN/PELVIS W PROCEDURE: CT abdomen and pelvis with contrast. TECHNIQUE: Multiple contiguous axial images were obtained through the abdomen and pelvis after administration of intravenous contrast. Auto Exposure Controls were utilized during the CT exam to meet ALARA standards for radiation dose reduction. INDICATION: Right groin pain Lung bases are clear. Liver appears normal. Gallbladder is present. Pancreas is normal. Spleen is not enlarged. Adrenals are normal. Kidneys are normal. Intestines appear normal. Urinary bladder is normal. Prostate is not enlarged. There is a small right inguinal hematoma but no evidence of pseudoaneurysm. There is no intraperitoneal free air or free fluid. IMPRESSION: Right groin hematoma. No evidence of pseudoaneurysm or AV fistula. Dictated on workstation # [id number] Dict: 03/24/191907 Trans: 03/24/191916 [facility] [id number] Interpreted by: GISELLE SOLITARIO MD Electronically signed by: Reviewed: Reviewed by Me Departure Impression Primary Impression: Hematoma of groin Qualified Codes: S30.1XXA - Contusion of abdominal wall, initial encounter Disposition: HOME, SELF-CARE Condition: Improved (ERASED) Departure-Patient Inst. Decision time for Depature: 19:40 Referrals: NO,LOCAL PHYSICIAN (PCP/Family) Primary Care Physician Patient Instructions: HEMATOMA Add. Discharge Instructions: Warm, moist compression to right groin every 2 hours [address] awake. Call Dr. Cooney's office for follow up later this week: [phone] Take antibiotics as prescribed. Use pain medication as prescribed. Continue to take all medications prescribed at time of discharge from your heart cath. Return to the Emergency Dept for new, acute health care needs. Scripts Tramadol HCl (Tramadol HCl) 50 Mg Tablet 50 MG PO Q6H PRN for PAIN, #12 TAB 0 Refills Prov: DANELLE CLARK 03/24/19 Cefadroxil (Cefadroxil) 500 Mg Capsule 500 MG PO BID for 5 Days, #10 CAP 0 Refills Prov: DANELLE CLARK 03/24/19 Copy Copies To 1: MAREN COONEY MD FACP [facility] DANELLE CLARK Mar 24, 2019 18:19 POS
[2019-03-24] MEDS ORDERED: NS 100 ML (IVPB) BAG IV ONE (18:30)
[2019-03-24] MEDS ORDERED: IOHEXOL 350 MG/ML 100 ML (OMNIPAQUE 350) VIAL IV ONE (18:30)
[2019-03-24] MEDS ORDERED: HOLD METFORMIN - RECEIVED CONTRAST 20 ML VIAL IV SCH (18:30)
[2019-03-24] MEDS ORDERED: HYDROcodone/APAP 5 MG/325 MG (LORTAB) TAB PO ONE (18:45)
[2019-03-24 18:55] LABS: BILIRUBIN,URINE NEGATIVE (NEGATIVE); CLARITY,URINE CLEAR; COLOR,URINE YELLOW; GLUCOSE, URINE (UA) NEGATIVE (NEGATIVE); KETONES,URINE NEGATIVE (NEGATIVE); LEUKOCYTE ESTERASE ,URINE NEGATIVE (NEGATIVE); NITRITE,URINE NEGATIVE (NEGATIVE); PH,URINE 5.5 (5-9); PROTEIN,URINE NEGATIVE (NEGATIVE)
[2019-03-24 19:03] LABS: BASOPHILS % (AUTO) 0 % (0-10); EOSINOPHILS # (AUTO) 0.4 10^3/uL (0.0-0.3); EOSINOPHILS % (AUTO) 3 % (0-10); HEMATOCRIT 42 % (40-54); HEMOGLOBIN 14.2 G/DL (13.3-17.7); LYMPHOCYTES # (AUTO) 2.2 X 10^3 (1.0-4.0); LYMPHOCYTES % (AUTO) 15 % (12-44); MEAN CORPUSCULAR HEMOGLOBIN 31 PG (25-34); MEAN CORPUSCULAR HGB CONC 34 G/DL (32-36); MEAN CORPUSCULAR VOLUME 92 FL (80-99); MEAN PLATELET VOLUME 9.7 FL (7.4-10.4); MONOCYTES # (AUTO) 1.1 X 10^3 (0.0-1.0); MONOCYTES % (AUTO) 7 % (0-12); NEUTROPHILS # (AUTO) 11.2 X 10^3 (1.8-7.8); NEUTROPHILS % (AUTO) 75 % (42-75); PLATELET COUNT 380 10^3/uL (130-400); RED CELL DISTRIBUTION WIDTH 12.1 % (10.0-14.5); WHITE BLOOD COUNT 14.9 10^3/uL (4.3-11.0)
[2019-03-24 19:16] LABS: BACTERIA,URINE NEGATIVE /HPF
[2019-03-24 19:17] LABS: ALANINE AMINOTRANSFERASE 52 U/L (0-55); ALBUMIN 4.6 GM/DL (3.2-4.5); ALKALINE PHOSPHATASE 84 U/L (40-136); BILIRUBIN,TOTAL 0.7 MG/DL (0.1-1.0); BUN/CREATININE RATIO 10; CALCIUM 9.9 MG/DL (8.5-10.1); CARBON DIOXIDE 25 MMOL/L (21-32); CHLORIDE 103 MMOL/L (98-107); CREATININE SERUM 0.87 MG/DL (0.60-1.30); GFR ESTIMATED > 60; GLUCOSE 87 MG/DL (70-105); POTASSIUM 3.8 MMOL/L (3.6-5.0); SODIUM 139 MMOL/L (135-145)
--- NOTE | 2019-03-24 19:18 | Diagnostic Imaging Report ---
PROCEDURE: CT abdomen and pelvis with contrast. TECHNIQUE: Multiple contiguous axial images were obtained through the abdomen and pelvis after administration of intravenous contrast. Auto Exposure Controls were utilized during the CT exam to meet ALARA standards for radiation dose reduction. INDICATION: Right groin pain Lung bases are clear. Liver appears normal. Gallbladder is present. Pancreas is normal. Spleen is not enlarged. Adrenals are normal. Kidneys are normal. Intestines appear normal. Urinary bladder is normal. Prostate is not enlarged. There is a small right inguinal hematoma but no evidence of pseudoaneurysm. There is no intraperitoneal free air or free fluid. IMPRESSION: Right groin hematoma. No evidence of pseudoaneurysm or AV fistula. Dictated by: Dictated on workstation # [id number]
[2019-03-24] MEDS ORDERED: TRAM50TA2 PO (19:45)
[2019-03-24] MEDS ORDERED: CEFA500C PO (19:45)
[2019-03-24 19:48] LABS: BAND NEUTROPHILS 1 %; EOSINOPHILS % (MANUAL) 4 %; LYMPHOCYTES % (MANUAL) 24 %; MONOCYTES % (MANUAL) 6 %; NEUTROPHILS % (MANUAL) 65 %; RBC MORPH N
[2019-03-24 19:51] VITALS: BP 139/81
--- OUTSIDE RECORDS SUMMARY | 2019-04-18 20:35 | XMS REPORT | Continuity of Care Document ---
Demographics x Preferred Language Unknown Marital Status Unknown Oriental Orthodox Affiliation Unknown Race Unknown Ethnic Group Unknown Author Organization Unknown Address Unknown Phone Unavailable Allergies Active Description Code Type Severity Reaction Onset Reported/Identified Relationship to Patient Clinical Status Yes No Known Drug Allergies [id number] Drug Allergy Unknown N/A 01/09/2019 Medications There is no data. Problems Date Dx Coded Attending Type Code Diagnosis Diagnosed By 01/09/2019 EDITH WOOTEN APRN Ot S61.411A LACERATION WITHOUT FOREIGN BODY OF RIGHT 01/09/2019 EDITH WOOTEN APRN Ot W26.8XXA CONTACT WITH OTHER SHARP OBJECT(S), NEC, 01/09/2019 EDITH WOOTEN APRN Ot Y92.59 [facility] 03/21/2019 KAROLYN MOORE FACC, ALI FACP CCDS Ot F17.200 NICOTINE DEPENDENCE, UNSPECIFIED, UNCOMP 03/21/2019 KAROLYN MOORE FACC, ALI FACP CCDS Ot F41.9 ANXIETY DISORDER, UNSPECIFIED 03/21/2019 KAROLYN MOORE FACC, ALI FACP CCDS Ot I21.19 STEMI INVOLVING OT CORONARY ARTERY OF I 03/21/2019 KAROLYN MOORE FACC, ALI FACP CCDS Ot I25.10 ATHSCL HEART DISEASE OF [place] CORONARY 03/24/2019 DANELLE CLARK Ot F41.9 ANXIETY DISORDER, UNSPECIFIED 03/24/2019 DANELLE CLARKP Ot G89.18 OTHER ACUTE POSTPROCEDURAL PAIN 03/24/2019 DANELLE CLARKP Ot I25.2 OLD MYOCARDIAL INFARCTION 03/24/2019 DANELLE CLARKP Ot 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 03/24/2019 DANELLE CLARKP Ot 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 03/24/2019 DANELLE CLARKP Ot Z79.82 PRISON (CURRENT) USE OF ASPIRIN 03/24/2019 DANELLE CLARKP Ot Z90.49 ACQUIRED ABSENCE OF OTHER SPECIFIED PART 03/29/2019 DANELLE CLARKP Ot F41.9 ANXIETY DISORDER, UNSPECIFIED 03/29/2019 DANELLE CLARKP Ot G89.18 OTHER ACUTE POSTPROCEDURAL PAIN 03/29/2019 DANELLE CLARKP Ot I25.2 OLD MYOCARDIAL INFARCTION 03/29/2019 DANELLE CLARKP Ot 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 00 PURE HYPERCHOLESTEROLEMIA, UNSPECIFIED 04/04/2019 SIRI TORRES MD Ot F17.200 NICOTINE DEPENDENCE, UNSPECIFIED, UNCOMP 04/04/2019 SIRI TORRES MD Ot F41. 9 ANXIETY DISORDER, UNSPECIFIED 04/04/2019 SIRI TORRES MD Ot I25. 2 OLD MYOCARDIAL INFARCTION 04/04/2019 SIRI TORRES MD Ot N50.819 TESTICULAR PAIN, UNSPECIFIED 04/04/2019 SIRI TORRES MD Ot S30.22XA CONTUSION OF SCROTUM AND TESTES, INITIAL 04/04/2019 SIRI TORRES MD Ot X58.XXXA EXPOSURE TO OTHER SPECIFIED FACTORS, INI 04/04/2019 SIRI TORRES MD Ot Z79. 02 JANITOR SUPERVISOR (CURRENT) USE OF ANTITHROMBOTI 04/04/2019 SIRI TORRES MD Ot Z79. 82 PRISON (CURRENT) USE OF ASPIRIN 04/04/2019 SIRI TORRES MD Ot Z82. 49 FAMILY HX OF ISCHEM HEART DIS AND OTH DI 04/04/2019 SIRI TORRES MD Ot Z90. 49 ACQUIRED ABSENCE OF OTHER SPECIFIED PART 04/04/2019 SIRI TORRES MD Ot Z95. 5 PRESENCE OF CORONARY ANGIOPLASTY IMPLANT 04/07/2019 SIRI TORRES MD Ot E78. 00 PURE HYPERCHOLESTEROLEMIA, UNSPECIFIED 04/07/2019 SIRI TORRES MD Ot F17.200 NICOTINE DEPENDENCE, UNSPECIFIED, UNCOMP 04/07/2019 SIRI TORRES MD Ot F41. 9 ANXIETY DISORDER, UNSPECIFIED 04/07/2019 SIRI TORRES MD, Ot I25. 2 OLD MYOCARDIAL INFARCTION 04/07/2019 SIRI TORRES MD, Ot N50.819 TESTICULAR PAIN, UNSPECIFIED 04/07/2019 SIRI TORRES MD Ot S30.22XA CONTUSION OF SCROTUM AND TESTES, INITIAL 04/07/2019 SIRI TORRES MD, Ot X58.XXXA EXPOSURE TO OTHER SPECIFIED FACTORS, INI 04/07/2019 SIRI TORRES MD, Ot Z79. 02 JANITOR SUPERVISOR (CURRENT) USE OF ANTITHROMBOTI 04/07/2019 SIRI TORRES MD, Ot Z79. 82 PRISON (CURRENT) USE OF ASPIRIN 04/07/2019 SIRI TORRES MD, Ot Z82. 49 FAMILY HX OF ISCHEM HEART DIS AND OTH DI 04/07/2019 SIRI TORRES MD, Ot Z90. 49 ACQUIRED ABSENCE OF OTHER SPECIFIED PART 04/07/2019 SIRI TORRES MD, Ot Z95. 5 PRESENCE OF CORONARY ANGIOPLASTY IMPLANT Procedures Code Description Performed By Per formed On 129404T DI LATION OF 1 COR ART WITH 2 DRUG-ELUT, 03/20/2019 [id number] ME ASURE OF CARDIAC SAMPL PRESSURE, L H 03/20/2019 [id number] FL UOROSCOPY OF MULT COR ART USING L OSM 03/20/2019 [id number] FL UOROSCOPY OF LEFT HEART USING LOW OSMO 03/20/2019 Results Test Result Range Complete blood count (CBC) with automate d white blood cell (WBC) differential - 03/20/19 08:55 Blood leukocytes automated count (number/volume) 8.6 10*3/uL 4.3-11.0 Blood erythrocytes automated count (number/volume) 4.84 10*6/uL 4.35-5.85 Venous blood hemoglobin measurement (mass/volume) 15.3 g/dL 13.3-17.7 Blood hematocrit (volume fraction) 43 % 40-54 Automated erythrocyte mean corpuscular volume 89 [ foz_us] 80-99 Automated erythrocyte mean corpuscular h emoglobin (mass per erythrocyte) 32 pg 25-34 Automated erythrocyte mean corpuscular h emoglobin concentration measurement (mass/volume) 35 g/dL 32-36 Automated erythrocyte distribution width ratio 12. 2 % 10.0- 14.5 Automated blood platelet count (count/volume) 314 10*3/uL 130-400 Automated blood platelet mean volume measurement 9.3 [foz_us] 7.4-10.4 Automated blood neutrophils/100 leukocytes 46 % 42-75 Automated blood lymphocytes/100 leukocytes 36 % 12-44 Blood monocytes/100 leukocytes 12 % 0-12 Automated blood eosinophils/100 leukocytes 6 % 0-10 Automated blood basophils/100 leukocytes 1 % 0-10 Blood neutrophils automated count (number/volume) 4.0 10*3 1.8-7.8 Blood lymphocytes automated count (number/volume) 3.1 10*3 1.0-4.0 Blood monocytes automated count (number/volume) 1. 0 10*3 0.0-1.0 Automated eosinophil count 0.5 10*3/uL 0 .0-0.3 Automated blood basophil count (count/volume) 0.1 10*3/uL 0.0-0.1 PT panel in platelet poor plasma by coag ulation assay - 03/20/19 08:55 Prothrombin time (PT) in platelet poor plasma by coagu lation assay 13.2 s 12.2-14.7 INR in platelet poor plasma or blood by coagulation as say 1.0 0.8-1.4 Activated partial thromboplastin time (a PTT) in platelet poor plasma bycoagulation assay - 03/20/19 08:55 Activated partial thromboplastin time (a PTT) in platelet poor plasma bycoagulation assay 26 s 24-35 Comprehensive metabolic panel - 03/20/19 08:55 Serum or plasma sodium measurement (moles/volume) 141 mmol/L 135-145 Serum or plasma potassium measurement (moles/volume) 3.6 mmol/L 3.6-5.0 Serum or plasma chloride measurement (moles/volume) 105 mmol/L 98-107 Carbon dioxide 21 mmol/L 21-32 Serum or plasma anion gap determination (moles/volume) 15 mmol/L 5-14 Serum or plasma urea nitrogen measurement (mass/volume ) 10 mg/dL 7-18 Serum or plasma creatinine measurement (mass/volume) 0.97 mg/dL 0.60-1.30 Serum or plasma urea nitrogen/creatinine mass ratio 10 NRG Serum or plasma creatinine measurement w ith calculation of estimated glomerular filtration rate > NRG Serum or plasma glucose measurement (mass/volume) 116 mg/dL 70-105 Serum or plasma calcium measurement (mass/volume) 9.1 mg/dL 8.5-10.1 Serum or plasma total bilirubin measurement (mass/volu me) 0.5 mg/dL 0.1-1.0 Serum or plasma alkaline phosphatase kathy surement (enzymatic activity/volume) 74 U/L 40-136 Serum or plasma aspartate aminotransfera se measurement (enzymatic activity/volume) 22 U/L 5-34 Serum or plasma alanine aminotransferase measurement (enzymatic activity/volume) 22 U/L 0-55 Serum or plasma protein measurement (mass/volume) 7.1 g/dL 6.4-8.2 Serum or plasma albumin measurement (mass/volume) 4.3 g/dL 3.2-4.5 CALCIUM CORRECTED 8.9 mg/dL 8.5-10.1 Magnesium - 03/20/19 08:55 Magnesium 1.9 mg/dL 1.6-2.4 Serum or plasma troponin i.cardiac measu rement (mass/volume) - 03/20/19 08:55 Serum or plasma troponin i.cardiac measurement (mass/v olume) 0.053 ng/mL <0.028 Myoglobin, serum - 03/20/19 08:55 Myoglobin, serum 44.7 ng/mL 10.0-92.0 Automated blood complete blood count (he mogram) panel - 03/21/19 03:26 Blood leukocytes automated count (number/volume) 11.5 10*3/uL 4.3-11.0 Blood erythrocytes automated count (number/volume) 4.26 10*6/uL 4.35-5.85 Venous blood hemoglobin measurement (mass/volume) 13.5 g/dL 13.3-17.7 Blood hematocrit (volume fraction) 39 % 40-54 Automated erythrocyte mean corpuscular volume 92 [ foz_us] 80-99 Automated erythrocyte mean corpuscular h emoglobin (mass per erythrocyte) 32 pg 25-34 Automated erythrocyte mean corpuscular h emoglobin concentration measurement (mass/volume) 35 g/dL 32-36 Automated erythrocyte distribution width ratio 12. 0 % 10.0- 14.5 Automated blood platelet count (count/volume) 285 10*3/uL 130-400 Automated blood platelet mean volume measurement 9.7 [foz_us] 7.4-10.4 Serum or plasma phosphate measurement (m ass/volume) - 03/21/19 03:26 Serum or plasma phosphate measurement (mass/volume) 2.5 mg/dL 2.3-4.7 Comprehensive metabolic panel - 03/21/19 03:26 Serum or plasma sodium measurement (moles/volume) 139 mmol/L 135-145 Serum or plasma potassium measurement (moles/volume) 3.7 mmol/L 3.6-5.0 Serum or plasma chloride measurement (moles/volume) 106 mmol/L 98-107 Carbon dioxide 22 mmol/L 21-32 Serum or plasma anion gap determination (moles/volume) 11 mmol/L 5-14 Serum or plasma urea nitrogen measurement (mass/volume ) 6 mg/dL 7-18 Serum or plasma creatinine measurement (mass/volume) 0.81 mg/dL 0.60-1.30 Serum or plasma urea nitrogen/creatinine mass ratio 7 NRG Serum or plasma creatinine measurement w ith calculation of estimated glomerular filtration rate > NRG Serum or plasma glucose measurement (mass/volume) 100 mg/dL 70-105 Serum or plasma calcium measurement (mass/volume) 8.4 mg/dL 8.5-10.1 Serum or plasma total bilirubin measurement (mass/volu me) 0.3 mg/dL 0.1-1.0 Serum or plasma alkaline phosphatase kathy surement (enzymatic activity/volume) 72 U/L 40-136 Serum or plasma aspartate aminotransfera se measurement (enzymatic activity/volume) 36 U/L 5-34 Serum or plasma alanine aminotransferase measurement (enzymatic activity/volume) 22 U/L 0-55 Serum or plasma protein measurement (mass/volume) 6.5 g/dL 6.4-8.2 Serum or plasma albumin measurement (mass/volume) 3.8 g/dL 3.2-4.5 CALCIUM CORRECTED 8.6 mg/dL 8.5-10.1 Magnesium - 03/21/19 03:26 Magnesium 1.8 mg/dL 1.6-2.4 Lipid 1996 panel - 03/21/19 03:26 Serum or plasma triglyceride measurement (mass/volume) 259 mg/dL <150 Serum or plasma cholesterol measurement (mass/volume) 172 mg/dL < 200 Serum or plasma cholesterol in HDL measurement (mass/v olume) 39 mg/dL 40-60 Cholesterol in LDL [mass/volume] in serum or plasma by direct assay 111 mg/dL 1-129 Serum or plasma cholesterol in VLDL measurement (mass/ volume) 52 mg/dL 5-40 Lipid 1996 panel - 03/21/19 03:26 Serum or plasma triglyceride measurement (mass/volume) 255 mg/dL <150 Serum or plasma cholesterol measurement (mass/volume) 170 mg/dL < 200 Serum or plasma cholesterol in HDL measurement (mass/v olume) 41 mg/dL 40-60 Cholesterol in LDL [mass/volume] in serum or plasma by direct assay 111 mg/dL 1-129 Serum or plasma cholesterol in VLDL measurement (mass/ volume) 51 mg/dL 5-40 THYROID STIMULATING HORMONE - 03/21/19 0 3:26 THYROID STIMULATING HORMONE 0.69 u[iU]/mL 0.35-4.94 Methicillin resistant Staphylococcus aur eus (MRSA) screening culture - 03/21/19 03:30 Methicillin resistant Staphylococcus aureus (MRSA) scr eening culture NEG NRG Complete blood count (CBC) with automate d white blood cell (WBC) differential - 03/24/19 18:33 Blood leukocytes automated count (number/volume) 14.9 10*3/uL 4.3-11.0 Blood erythrocytes automated count (number/volume) 4.53 10*6/uL 4.35-5.85 Venous blood hemoglobin measurement (mass/volume) 14.2 g/dL 13.3-17.7 Blood hematocrit (volume fraction) 42 % 40-54 Automated erythrocyte mean corpuscular volume 92 [ foz_us] 80-99 Automated erythrocyte mean corpuscular h emoglobin (mass per erythrocyte) 31 pg 25-34 Automated erythrocyte mean corpuscular h emoglobin concentration measurement (mass/volume) 34 g/dL 32-36 Automated erythrocyte distribution width ratio 12. 1 % 10.0- 14.5 Automated blood platelet count (count/volume) 380 10*3/uL 130-400 Automated blood platelet mean volume measurement 9.7 [foz_us] 7.4-10.4 Automated blood neutrophils/100 leukocytes 75 % 42-75 Automated blood lymphocytes/100 leukocytes 15 % 12-44 Blood monocytes/100 leukocytes 7 % 0-12 Automated blood eosinophils/100 leukocytes 3 % 0-10 Automated blood basophils/100 leukocytes 0 % 0-10 Blood neutrophils automated count (number/volume) 11.2 10*3 1.8-7.8 Blood lymphocytes automated count (number/volume) 2.2 10*3 1.0-4.0 Blood monocytes automated count (number/volume) 1. 1 10*3 0.0-1.0 Automated eosinophil count 0.4 10*3/uL 0 .0-0.3 Automated blood basophil count (count/volume) 0.0 10*3/uL 0.0-0.1 Comprehensive metabolic panel - 03/24/19 18:33 Serum or plasma sodium measurement (moles/volume) 139 mmol/L 135-145 Serum or plasma potassium measurement (moles/volume) 3.8 mmol/L 3.6-5.0 Serum or plasma chloride measurement (moles/volume) 103 mmol/L 98-107 Carbon dioxide 25 mmol/L 21-32 Serum or plasma anion gap determination (moles/volume) 11 mmol/L 5-14 Serum or plasma urea nitrogen measurement (mass/volume ) 9 mg/dL 7-18 Serum or plasma creatinine measurement (mass/volume) 0.87 mg/dL 0.60-1.30 Serum or plasma urea nitrogen/creatinine mass ratio 10 NRG Serum or plasma creatinine measurement w ith calculation of estimated glomerular filtration rate > NRG Serum or plasma glucose measurement (mass/volume) 87 mg/dL 70-105 Serum or plasma calcium measurement (mass/volume) 9.9 mg/dL 8.5-10.1 Serum or plasma total bilirubin measurement (mass/volu me) 0.7 mg/dL 0.1-1.0 Serum or plasma alkaline phosphatase kathy surement (enzymatic activity/volume) 84 U/L 40-136 Serum or plasma aspartate aminotransfera se measurement (enzymatic activity/volume) 36 U/L 5-34 Serum or plasma alanine aminotransferase measurement (enzymatic activity/volume) 52 U/L 0-55 Serum or plasma protein measurement (mass/volume) 8.0 g/dL 6.4-8.2 Serum or plasma albumin measurement (mass/volume) 4.6 g/dL 3.2-4.5 Manual absolute plasma cell count - 06/11 18:33 Blood monocytes/100 leukocytes 6 % NRG Manual blood segmented neutrophils/100 leukocytes 65 % NRG Blood band neutrophils/100 leukocytes 1 % NRG Manual blood lymphocytes/100 leukocytes 24 % NRG Manual eosinophils/100 leukocytes in nose 4 % NRG Blood erythrocyte morphology finding identification N NRG Complete urinalysis with reflex to cultu re - 03/24/19 18:35 Urine color determination YELLOW NRG Urine clarity determination CLEAR NR G Urine pH measurement by test strip 5.5 5-9 Specific gravity of urine by test strip 1.025 1.016-1.022 Urine protein assay by test strip, semi-quantitative NEGATIVE NEGATIVE Urine glucose detection by automated test strip NE GATIVE NEGATIVE Erythrocytes detection in urine sediment by light micr oscopy NEGATIVE NEGATIVE Urine ketones detection by automated test strip NE GATIVE NEGATIVE Urine nitrite detection by test strip NEGATIVE NEGATIVE Urine total bilirubin detection by test strip NEGA TIVE NEGATIVE Urine urobilinogen measurement by automated test strip (mass/volume) 0.2 mg/dL < = 1.0 Urine leukocyte esterase detection by dipstick NEG ATIVE NEGATIVE Automated urine sediment erythrocyte cou nt by microscopy (number/high power field) NONE NRG Automated urine sediment leukocyte count by microscopy (number/high power field) NONE NRG Bacteria detection in urine sediment by light microsco py NEGATIVE NRG Crystals detection in urine sediment by light microsco py NONE NRG Casts detection in urine sediment by light microscopy NONE NRG Mucus detection in urine sediment by light microscopy NEGATIVE NRG Complete urinalysis with reflex to culture NO NRG Complete blood count (CBC) with automate d white blood cell (WBC) differential - 04/03/19 22:10 Blood leukocytes automated count (number/volume) 12.7 10*3/uL 4.3-11.0 Blood erythrocytes automated count (number/volume) 4.33 10*6/uL 4.35-5.85 Venous blood hemoglobin measurement (mass/volume) 13.6 g/dL 13.3-17.7 Blood hematocrit (volume fraction) 40 % 40-54 Automated erythrocyte mean corpuscular volume 92 [ foz_us] 80-99 Automated erythrocyte mean corpuscular h emoglobin (mass per erythrocyte) 31 pg 25-34 Automated erythrocyte mean corpuscular h emoglobin concentration measurement (mass/volume) 34 g/dL 32-36 Automated erythrocyte distribution width ratio 12. 0 % 10.0- 14.5 Automated blood platelet count (count/volume) 487 10*3/uL 130-400 Automated blood platelet mean volume measurement 9.1 [foz_us] 7.4-10.4 Automated blood neutrophils/100 leukocytes 63 % 42-75 Automated blood lymphocytes/100 leukocytes 24 % 12-44 Blood monocytes/100 leukocytes 8 % 0-12 Automated blood eosinophils/100 leukocytes 5 % 0-10 Automated blood basophils/100 leukocytes 1 % 0-10 Blood neutrophils automated count (number/volume) 8.0 10*3 1.8-7.8 Blood lymphocytes automated count (number/volume) 3.0 10*3 1.0-4.0 Blood monocytes automated count (number/volume) 1. 0 10*3 0.0-1.0 Automated eosinophil count 0.6 10*3/uL 0 .0-0.3 Automated blood basophil count (count/volume) 0.1 10*3/uL 0.0-0.1 Comprehensive metabolic panel - 04/03/19 22:10 Serum or plasma sodium measurement (moles/volume) 138 mmol/L 135-145 Serum or plasma potassium measurement (moles/volume) 4.2 mmol/L 3.6-5.0 Serum or plasma chloride measurement (moles/volume) 102 mmol/L 98-107 Carbon dioxide 24 mmol/L 21-32 Serum or plasma anion gap determination (moles/volume) 12 mmol/L 5-14 Serum or plasma urea nitrogen measurement (mass/volume ) 11 mg/dL 7-18 Serum or plasma creatinine measurement (mass/volume) 0.93 mg/dL 0.60-1.30 Serum or plasma urea nitrogen/creatinine mass ratio 12 NRG Serum or plasma creatinine measurement w ith calculation of estimated glomerular filtration rate > NRG Serum or plasma glucose measurement (mass/volume) 75 mg/dL 70-105 Serum or plasma calcium measurement (mass/volume) 9.4 mg/dL 8.5-10.1 Serum or plasma total bilirubin measurement (mass/volu me) 0.4 mg/dL 0.1-1.0 Serum or plasma alkaline phosphatase kathy surement (enzymatic activity/volume) 110 U/L 40-136 Serum or plasma aspartate aminotransfera se measurement (enzymatic activity/volume) 22 U/L 5-34 Serum or plasma alanine aminotransferase measurement (enzymatic activity/volume) 23 U/L 0-55 Serum or plasma protein measurement (mass/volume) 7.8 g/dL 6.4-8.2 Serum or plasma albumin measurement (mass/volume) 4.1 g/dL 3.2-4.5 CALCIUM CORRECTED 9.3 mg/dL 8.5-10.1 Complete urinalysis with reflex to cultu re - 04/03/19 22:32 Urine color determination YELLOW NRG Urine clarity determination CLEAR NR G Urine pH measurement by test strip 6.0 5-9 Specific gravity of urine by test strip 1.020 1.016-1.022 Urine protein assay by test strip, semi-quantitative NEGATIVE NEGATIVE Urine glucose detection by automated test strip NE GATIVE NEGATIVE Erythrocytes detection in urine sediment by light micr oscopy NEGATIVE NEGATIVE Urine ketones detection by automated test strip NE GATIVE NEGATIVE Urine nitrite detection by test strip NEGATIVE NEGATIVE Urine total bilirubin detection by test strip NEGA TIVE NEGATIVE Urine urobilinogen measurement by automated test strip (mass/volume) 0.2 mg/dL < = 1.0 Urine leukocyte esterase detection by dipstick NEG ATIVE NEGATIVE Automated urine sediment erythrocyte cou nt by microscopy (number/high power field) NONE NRG Automated urine sediment leukocyte count by microscopy (number/high power field) NONE NRG Bacteria detection in urine sediment by light microsco py NEGATIVE NRG Squamous epithelial cells detection in u rine sediment by light microscopy 0-2 NRG Crystals detection in urine sediment by light microsco py NONE NRG Casts detection in urine sediment by light microscopy NONE NRG Mucus detection in urine sediment by light microscopy NEGATIVE NRG Complete urinalysis with reflex to culture NO NRG Encounters ACCT No. Visit Date/Time Discharge Status Pt. Type Provider Facility Loc./Unit Complaint [id number] 01/02/2019 08:10:00 01/02/2019 23:59: 59 [facility] Outpatient [facility] [id number] 04/03/2019 21:22:00 00:07:00 DIS Emergency SIRI TORRES MD [facility] ER GROIN PAIN [id number] 03/24/2019 16:59:00 19:53:00 DIS Emergency DANELLE CLARK [facility] ER PAIN WHERE INCISION SIT ES WERE FOR CATH [id number] 03/20/2019 10:41:00 12:05:00 DIS Inpatient KAROLYN MOORE FACC, MAREN GERARD CCD S [facility] ICU ACUTE [place] [id number] 01/09/2019 18:48:00 019 19:25:00 DIS Emergency EDITH WOOTEN APRN [facility] ER R HAND THUMB INJ
== END 2019-03-24 19:53 | disposition home or self-care (01) ==
LOC: EDUNIT# 16:57 → ER 16:59
DX: I97.630 Postprocedural hematoma of a circulatory system organ or structure following a cardiac catheterization (principal); I25.2 Old myocardial infarction; F41.9 Anxiety disorder, unspecified; Z90.49 Acquired absence of other specified parts of digestive tract; Z79.82 Long term (current) use of aspirin; Z79.02 Long term (current) use of antithrombotics/antiplatelets
CPT/HCPCS: 36415; 74177; 80053; 81000; 85007; 85027

== ENCOUNTER 2019-04-03 21:21 | Emergency (ER) | payer SELFPAY ==
[~2019-04-03] VITALS: Ht 187.9 cm; Wt 95.5 kg
[~2019-04-03 21:21] MED LIST changes: +CEFA500C PO; +TRAM50TA2 PO
[2019-04-03] MEDS ORDERED: fentaNYL INJECTION 100 MCG/2 ML AMP IVP ONE (22:15)
[2019-04-03 22:19] LABS: BASOPHILS # (AUTO) 0.1 10^3/uL (0.0-0.1); BASOPHILS % (AUTO) 1 % (0-10); EOSINOPHILS # (AUTO) 0.6 10^3/uL (0.0-0.3); EOSINOPHILS % (AUTO) 5 % (0-10); HEMATOCRIT 40 % (40-54); HEMOGLOBIN 13.6 G/DL (13.3-17.7); LYMPHOCYTES % (AUTO) 24 % (12-44); MEAN CORPUSCULAR HEMOGLOBIN 31 PG (25-34); MEAN CORPUSCULAR HGB CONC 34 G/DL (32-36); MEAN CORPUSCULAR VOLUME 92 FL (80-99); MEAN PLATELET VOLUME 9.1 FL (7.4-10.4); MONOCYTES % (AUTO) 8 % (0-12); NEUTROPHILS % (AUTO) 63 % (42-75); PLATELET COUNT 487 10^3/uL (130-400); WHITE BLOOD COUNT 12.7 10^3/uL (4.3-11.0)
--- NOTE | 2019-04-03 22:19 | ED GU-Male ---
General Chief Complaint: General Problems/Pain Stated Complaint: GROIN PAIN Nursing Triage Note: STATES HIS SCROTUM HAS TURNED BLACK, AND IS PAINFUL. MAKING IT DIFFICULT TO SLEEP OR SIT. HX OF HEART CATH DONE AROUND [facility]. Source: patient, spouse Exam Limitations: no limitations History of Present Illness Date Seen by Provider: Apr 03, 2019 Time Seen by Provider: 22:01 Initial Comments The patient presents to ER by private conveyance with chief complaint that his testicles are turning black and is having exquisite pain. He's been using Tylenol and ibuprofen today with minimal relief. His last dose of ibuprofen was about 3 hours ago. He did not notice any bruising or swelling of the scrotum until today. He does not have any significant pain until today. He had a cardiac catheterization with 2 stents and ablation on the , 2 weeks ago. He is on Plavix and aspirin but no other blood thinners. He takes a blood pressure and cholesterol medicine now but no other medicines. No significant medical history. No history of surgeries on the scrotum or abdomen. No trauma to the abdomen. No fever, discharge, dysuria, hesitancy. Allergies and Home Medications Allergies Coded Allergies: No Known Drug Allergies (Unverified , 01/09/19) Home Medications Aspirin 81 Mg Tab.chew, 81 MG PO DAILY Prescribed by: MAREN PARR on 03/21/19 115 Atorvastatin Calcium 80 Mg Tablet, 80 MG PO HS Prescribed by: MAREN PARR on 03/21/19 115 Cefadroxil 500 Mg Capsule, 500 MG PO BID Prescribed by: DANELLE CLARK on 03/24/191944 Clopidogrel Bisulfate 75 Mg Tablet, 75 MG PO DAILY Prescribed by: MAREN PARR on 03/21/19 115 Lisinopril 5 Mg Tablet, 5 MG PO DAILY Prescribed by: MAREN PARR on 03/21/19 115 Metoprolol Succinate 50 Mg Tab.er.24h, 50 MG PO DAILY Prescribed by: MAREN PARR on 03/21/19 115 Tramadol HCl 50 Mg Tablet, 50 MG PO Q6H PRN for PAIN Prescribed by: DANELLE CLARK on 03/24/191944 Patient Home Medication List Home Medication List Reviewed: Yes Review of Systems Review of Systems Constitutional: No chills, No diaphoresis EENTM: No ear discharge, No hearing loss Respiratory: No cough, No short of breath Cardiovascular: No chest pain, No edema; Hx of Intervention Gastrointestinal: No abdominal pain, No constipation, No diarrhea, No nausea Genitourinary: see HPI; denies burning, denies discharge, denies dysuria Musculoskeletal: No back pain, No gout Skin: No change in color, No change in hair/nails Psychiatric/Neurological: Denies Anxiety, Denies Depressed All Other Systemes Reviewed Negative Unless Noted: Yes Past Rhxttls-Evblke-Dbzfhg Hx Patient Social History Alcohol Use: Denies Use Number of Drinks Today: AA Alcohol Beverage of Choice: Beer Recreational Drug Use: No Smoking Status: Current Everyday Smoker Recent Foreign Travel: No Contact w/Someone Who Travel: No Recent Infectious Disease Expo: No Recent Hopitalizations: No (HEART CATH AROUND ) Physical Abuse: No Sexual Abuse: No Mistreated: No Fear: No Immunizations Up To Date Tetanus Booster (TDap): Less than 5yrs Seasonal Allergies Seasonal Allergies: No Past Medical History Surgeries: Yes Appendectomy, Cardiac Respiratory: No Cardiac: Yes Heart Attack, High Cholesterol Neurological: No Genitourinary: No Gastrointestinal: No Musculoskeletal: No Endocrine: No HEENT: No Cancer: No Psychosocial: No Anxiety Integumentary: No Blood Disorders: No Family Medical History Heart Disease Physical Exam Vital Signs Vital Signs - First Documented 04/03/19 21:41 Temp 36.7 Pulse 83 Resp 20 B/P (MAP) 135/81 (99) Pulse Ox 97 Capillary Refill : Less Than 3 Seconds Height, Weight, BMI Height: '" Weight: lbs. oz. kg; 27.00 BMI Method: General Appearance: WD/WN, mild distress HEENT: PERRL/EOMI, pharynx normal Cardiovascular: normal peripheral pulses, regular rate, rhythm Respiratory: no respiratory distress, no accessory muscle use Gastrointestinal: non tender, soft Male: testicular tenderness (bilateral), other (moderate ecchymoses down the raphe of the scrotum. No tenderness bilateral inguinal canals. No bulge or hernia palpable. Testes are normal size. Minor old ecchymoses on the right groin/medial thigh) Extremities: normal range of motion, non-tender, normal capillary refill Neurologic/Psychiatric: alert, normal mood/affect, oriented x 3 Procedures/Interventions Suture Size: 4-0 Progress/Results/Core Measures Suspected Sepsis Recent Fever Within 48 Hours: No Infection Criteria Present: None New/Unexplained Altered Menta: No Sepsis Screen: No Definite Risk SIRS Temperature: Pulse: 83 Respiratory Rate: 20 Laboratory Tests 04/03/19 22:10: White Blood Count 12.7H Blood Pressure 135 /81 Mean: 99 Laboratory Tests 04/03/19 22:10: Creatinine 0.93, Platelet Count 487H, Total Bilirubin 0.4 Results/Orders Lab Results Laboratory Tests Test 04/03/19 22:10 04/03/19 22:32 Range/Units White Blood Count 12.7 H 4.3-11.0 10^3/uL Red Blood Count 4.33 L 4.35-5.85 10^6/uL Hemoglobin 13.6 13.3-17.7 G/DL Hematocrit 40 40-54 % Mean Corpuscular Volume 92 80-99 FL Mean Corpuscular Hemoglobin 31 25-34 PG Mean Corpuscular Hemoglobin Concent 34 32-36 G/DL Red Cell Distribution Width 12.0 10.0-14.5 % Platelet Count 487 H 130-400 10^3/uL Mean Platelet Volume 9.1 7.4-10.4 FL Neutrophils (%) (Auto) 63 42-75 % Lymphocytes (%) (Auto) 24 12-44 % Monocytes (%) (Auto) 8 0-12 % Eosinophils (%) (Auto) 5 0-10 % Basophils (%) (Auto) 1 0-10 % Neutrophils # (Auto) 8.0 H 1.8-7.8 X 10^3 Lymphocytes # (Auto) 3.0 1.0-4.0 X 10^3 Monocytes # (Auto) 1.0 0.0-1.0 X 10^3 Eosinophils # (Auto) 0.6 H 0.0-0.3 10^3/uL Basophils # (Auto) 0.1 0.0-0.1 10^3/uL Sodium Level 138 135-145 MMOL/L Potassium Level 4.2 3.6-5.0 MMOL/L Chloride Level 102 98-107 MMOL/L Carbon Dioxide Level 24 21-32 MMOL/L Anion Gap 12 5-14 MMOL/L Blood Urea Nitrogen 11 7-18 MG/DL Creatinine 0.93 0.60-1.30 MG/DL Estimat Glomerular Filtration Rate > 60 BUN/Creatinine Ratio 12 Glucose Level 75 70-105 MG/DL Calcium Level 9.4 8.5-10.1 MG/DL Corrected Calcium 9.3 8.5-10.1 MG/DL Total Bilirubin 0.4 0.1-1.0 MG/DL Aspartate Amino Transf (AST/SGOT) 22 5-34 U/L Alanine Aminotransferase (ALT/SGPT) 23 0-55 U/L Alkaline Phosphatase 110 40-136 U/L Total Protein 7.8 6.4-8.2 GM/DL Albumin 4.1 3.2-4.5 GM/DL Urine Color YELLOW Urine Clarity CLEAR Urine pH 6.0 5-9 Urine Specific [place] 1.020 1.016-1.022 Urine Protein NEGATIVE NEGATIVE Urine Glucose (UA) NEGATIVE NEGATIVE Urine Ketones NEGATIVE NEGATIVE Urine Nitrite NEGATIVE NEGATIVE Urine Bilirubin NEGATIVE NEGATIVE Urine Urobilinogen 0.2 < = 1.0 MG/DL Urine Leukocyte Esterase NEGATIVE NEGATIVE Urine RBC (Auto) NEGATIVE NEGATIVE Urine RBC NONE /HPF Urine WBC NONE /HPF Urine Squamous Epithelial Cells 0-2 /HPF Urine Crystals NONE /LPF Urine Bacteria NEGATIVE /HPF Urine Casts NONE /LPF Urine Mucus NEGATIVE /LPF Urine Culture Indicated NO My Orders Orders - SIRI TORRES Ed Iv/Invasive Line Start (04/03/19 22:13) Cbc With Automated Diff (04/03/19 22:13) Comprehensive Metabolic Panel (04/03/19 22:13) Fentanyl Injection (Sublimaze Injection (04/03/19 22:15) Ua Culture If Indicated (04/03/19 22:22) Medications Given in ED Current Medications Medications Dose Ordered Sig/Yaneli Route Start Time Stop Time Status Last Admin Dose Admin Fentanyl Citrate 50 mcg ONCE ONCE IVP 04/03/19 22:15 04/03/19 22:16 DC 04/03/19 22:31 50 MCG Vital Signs/I&O 04/03/19 21:41 Temp 36.7 Pulse 83 Resp 20 B/P (MAP) 135/81 (99) Pulse Ox 97 Capillary Refill : Less Than 3 Seconds Blood Pressure Mean: 99 POS Progress Note : Time: 22:18 Progress Note 50 of fentanyl, UA, CBC and CMP looking for anemia. 2 weeks after her Angiocath perhaps he had a small bleed that is settling into his scrotum or he has started having a new bleed. We do not have ultrasound available. Acute inferior wall PR on 03/20/19. 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 Ejection fraction 50%. Chronic tobacco use. Echo demonstrating 55-60% the following day with inferior septal hypokinesis. Consults Consults : Consulting Physician: MAREN PARR MD FACP FAC CCDS Consults Notes Discussed the case with Dr. Singh and he feels it would be highly unusual for the Angiocath access from nearly 2 weeks ago to be contributing to new-onset pain today. He would recommend a typical scrotum and testicular pain workup. Departure Impression Primary Impression: Testicle pain Additional Impression: Bruise of scrotum Qualified Codes: S30.22XA - Contusion of scrotum and testes, initial encounter Disposition: XF [facility] HOSP Condition: Stable Transfer Transfer Reason: Exceeds level of care Time Spoke to Accepting Phy: 23:10 Transfer Progress Notes Discussed the case with Dr. Collado in the ER at [place], [place] and she agrees to accept the patient for further workup since we do not have ultrasound available tonight for his testicular pain. We discussed his recent Angiocath. Transfer Time: 23:30 Transfer Facility: [place], [place] Method of Transfer: Private Vehicle Departure-Patient Inst. Referrals: NO,LOCAL PHYSICIAN (PCP/Family) Primary Care Physician SIRI TORRES Apr 03, 2019 22:19 POS
[2019-04-03 22:38] LABS: ALANINE AMINOTRANSFERASE 23 U/L (0-55); ALBUMIN 4.1 GM/DL (3.2-4.5); ALKALINE PHOSPHATASE 110 U/L (40-136); BILIRUBIN,TOTAL 0.4 MG/DL (0.1-1.0); BUN/CREATININE RATIO 12; CALCIUM 9.4 MG/DL (8.5-10.1); CARBON DIOXIDE 24 MMOL/L (21-32); CHLORIDE 102 MMOL/L (98-107); CREATININE SERUM 0.93 MG/DL (0.60-1.30); GFR ESTIMATED > 60; GLUCOSE 75 MG/DL (70-105); POTASSIUM 4.2 MMOL/L (3.6-5.0); SODIUM 138 MMOL/L (135-145); TOTAL PROTEIN 7.8 GM/DL (6.4-8.2)
[2019-04-03 22:39] LABS: BILIRUBIN,URINE NEGATIVE (NEGATIVE); CLARITY,URINE CLEAR; COLOR,URINE YELLOW; GLUCOSE, URINE (UA) NEGATIVE (NEGATIVE); KETONES,URINE NEGATIVE (NEGATIVE); LEUKOCYTE ESTERASE ,URINE NEGATIVE (NEGATIVE); NITRITE,URINE NEGATIVE (NEGATIVE); PROTEIN,URINE NEGATIVE (NEGATIVE)
[2019-04-03 22:50] LABS: BACTERIA,URINE NEGATIVE /HPF; SQUAMOUS EPITHELIAL CELL,UR 0-2 /HPF
[2019-04-03] MEDS ORDERED: HYDROcodone/APAP 5 MG/325 MG (LORTAB) TAB PO ONE (23:45)
[2019-04-03 23:55] VITALS: BP 146/85
[2019-04-03 23:57] VITALS: BP 146/85
== END 2019-04-04 00:07 | disposition short-term general hospital (02) ==
LOC: EDUNIT# 21:21 → ER 21:22
DX: S30.22XA Contusion of scrotum and testes, initial encounter (principal); I25.2 Old myocardial infarction; E78.00 Pure hypercholesterolemia, unspecified; F41.9 Anxiety disorder, unspecified; F17.200 Nicotine dependence, unspecified, uncomplicated; Z79.82 Long term (current) use of aspirin; Z95.5 Presence of coronary angioplasty implant and graft; Z79.02 Long term (current) use of antithrombotics/antiplatelets; Z90.49 Acquired absence of other specified parts of digestive tract; Z82.49 Family history of ischemic heart disease and other diseases of the circulatory system; X58.XXXA Exposure to other specified factors, initial encounter
CPT/HCPCS: 36415; 80053; 81000; 85025; 96374

== ENCOUNTER 2019-05-10 10:24 | Emergency (ER) | payer SELFPAY ==
[~2019-05-10] VITALS: Ht 177 cm; Wt 90.0 kg
[~2019-05-10 10:24] MED LIST changes: -METO-370 PO; +METO50TA7 PO; -TRAM50TA2 PO; +TRM50T PO
[2019-05-10] MEDS ORDERED: ASPIRIN 81 MG CHEW (CHILDREN'S ASA) PO ONE (10:45)
[2019-05-10] MEDS ORDERED: NITROGLYCERIN 0.4 MG SL TABS BTL 25'S SL PRN (10:45)
[2019-05-10 11:02] LABS: BASOPHILS % (AUTO) 0 % (0-10); EOSINOPHILS # (AUTO) 0.4 10^3/uL (0.0-0.3); EOSINOPHILS % (AUTO) 6 % (0-10); HEMATOCRIT 43 % (40-54); HEMOGLOBIN 14.6 G/DL (13.3-17.7); LYMPHOCYTES # (AUTO) 1.8 X 10^3 (1.0-4.0); LYMPHOCYTES % (AUTO) 25 % (12-44); MEAN CORPUSCULAR HEMOGLOBIN 31 PG (25-34); MEAN CORPUSCULAR HGB CONC 34 G/DL (32-36); MEAN CORPUSCULAR VOLUME 91 FL (80-99); MEAN PLATELET VOLUME 9.8 FL (7.4-10.4); MONOCYTES # (AUTO) 0.7 X 10^3 (0.0-1.0); MONOCYTES % (AUTO) 10 % (0-12); NEUTROPHILS # (AUTO) 4.3 X 10^3 (1.8-7.8); NEUTROPHILS % (AUTO) 59 % (42-75); PLATELET COUNT 228 10^3/uL (130-400); RED CELL DISTRIBUTION WIDTH 12.8 % (10.0-14.5); WHITE BLOOD COUNT 7.3 10^3/uL (4.3-11.0)
--- NOTE | 2019-05-10 11:09 | Diagnostic Imaging Report ---
INDICATION: Chest pain. TECHNIQUE: Single view chest 11:04 AM. CORRELATION STUDY: 03/21/2019 FINDINGS: The heart size, mediastinal configuration and pulmonary vascularity are within normal limits. The lungs are clear with no consolidating infiltrate. There is no significant effusion or pneumothorax. IMPRESSION: 1. Negative for acute abnormality of the chest. Dictated by: Dictated on workstation # [id number]
[2019-05-10 11:15] LABS: INR 0.9 (0.8-1.4); PROTHROMBIN TIME PATIENT 12.9 SEC (12.2-14.7)
[2019-05-10 11:23] LABS: ALANINE AMINOTRANSFERASE 71 U/L (0-55); ALBUMIN 4.2 GM/DL (3.2-4.5); ALKALINE PHOSPHATASE 90 U/L (40-136); BILIRUBIN,TOTAL 0.5 MG/DL (0.1-1.0); BUN/CREATININE RATIO 10; CALCIUM 9.1 MG/DL (8.5-10.1); CARBON DIOXIDE 22 MMOL/L (21-32); CHLORIDE 104 MMOL/L (98-107); CREATININE SERUM 0.94 MG/DL (0.60-1.30); GFR ESTIMATED > 60; GLUCOSE 94 MG/DL (70-105); SODIUM 138 MMOL/L (135-145); TOTAL PROTEIN 7.3 GM/DL (6.4-8.2)
--- NOTE | 2019-05-10 12:13 | NUR ---
PATIENT TO BE ADMITTED HOWEVER IS REFUSING TO BE ADMITTED. REQUESTS TO SIGN AMA PAPERS. S.O. AT BEDSIDE.
[2019-05-10 12:15] VITALS: BP 120/73
--- NOTE | 2019-05-10 12:25 | ED Chest Pain ---
General Chief Complaint: Chest Pain Stated Complaint: CHEST PAIN Nursing Triage Note: COMPLAINTS OF LEFT SIDED CHEST PAIN STARTING YESTERDAY. Nursing Sepsis Screen: No Definite Risk Source: patient, old records Exam Limitations: no limitations History of Present Illness Date Seen by Provider: May 10, 2019 Time Seen by Provider: 10:33 Initial Comments This 34-year-old man with known coronary artery disease who had [place] and stent placement in February presents to the emergency room with complaints of chest pain on exertion that started yesterday. Today he woke with more intense pain and decided to come to the emergency room. During his hospital admission in February he left AGAINST MEDICAL ADVICE. He reports continuous use of his Plavix without missing any doses. He continues to smoke and he drinks about one day per week. He also uses marijuana. He rates his pain as an 8 out of 10. Allergies and Home Medications Allergies Coded Allergies: No Known Drug Allergies (Unverified , 01/09/19) Home Medications Aspirin 81 Mg Tab.chew, 81 MG PO DAILY Prescribed by: MAREN PARR on 03/21/19 1158 Atorvastatin Calcium 80 Mg Tablet, 80 MG PO HS Prescribed by: MAREN PARR on 03/21/19 115 Cefadroxil 500 Mg Capsule, 500 MG PO BID Prescribed by: DANELLE CLARK on 03/24/191944 Clopidogrel Bisulfate 75 Mg Tablet, 75 MG PO DAILY Prescribed by: MAREN PARR on 03/21/19 115 Lisinopril 5 Mg Tablet, 5 MG PO DAILY Prescribed by: MAREN PARR on 03/21/19 115 Metoprolol Succinate 50 Mg Tab.er.24h, 50 MG PO DAILY Prescribed by: MAREN PARR on 03/21/19 115 Tramadol HCl 50 Mg Tablet, 50 MG PO Q6H PRN for PAIN Prescribed by: DANELLE CLARK on 03/24/191944 Patient Home Medication List Home Medication List Reviewed: Yes Review of Systems Review of Systems Constitutional: no symptoms reported EENTM: No Symptoms Reported Respiratory: No Symptoms Reported Cardiovascular: See HPI Gastrointestinal: No Symptoms Reported Genitourinary: No Symptoms Reported Musculoskeletal: no symptoms reported Skin: no symptoms reported Psychiatric/Neurological: No Symptoms Reported Endocrine: No Symptoms Reported Hematologic/Lymphatic: No Symptoms Reported Past Lplekjv-Rygxnx-Wbdovj Hx Past Med/Social Hx: Reviewed and Corrections made Patient Social History Alcohol Use: Rarely Uses Alcohol Beverage of Choice: Beer Recreational Drug Use: Yes Drug of Choice: POT Smoking Status: Current Everyday Smoker Recent Foreign Travel: No Contact w/Someone Who Travel: No Recent Infectious Disease Expo: No Recent Hopitalizations: Yes (HEART CATH AROUND GI 19) Physical Abuse: No Sexual Abuse: No Mistreated: No Fear: No Immunizations Up To Date Tetanus Booster (TDap): Less than 5yrs Seasonal Allergies Seasonal Allergies: No Past Medical History Surgeries: Yes Appendectomy, Cardiac, Coronary Stent Respiratory: No Cardiac: Yes Coronary Artery Disease, Heart Attack, High Cholesterol Neurological: No Genitourinary: No Gastrointestinal: No Musculoskeletal: No Endocrine: No HEENT: No Cancer: No Psychosocial: Yes Anxiety Integumentary: No Blood Disorders: No Family Medical History Reviewed Nursing Family Hx Heart Disease Physical Exam Vital Signs Vital Signs - First Documented 05/10/19 10:24 Temp 37.0 Pulse 75 Resp 16 B/P (MAP) 133/84 (100) Pulse Ox 100 O2 Delivery Room Air Capillary Refill : Less Than 3 Seconds Height, Weight, BMI Height: '" Weight: lbs. oz. 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 Norm as Tested Skin: Normal Color, Warm/Dry Procedures/Interventions Suture Size: 4-0 Progress/Results/Core Measures Results/Orders Lab Results Laboratory Tests Test 05/10/19 10:51 Range/Units White Blood Count 7.3 4.3-11.0 10^3/uL Red Blood Count 4.67 4.35-5.85 10^6/uL Hemoglobin 14.6 13.3-17.7 G/DL Hematocrit 43 40-54 % Mean Corpuscular Volume 91 80-99 FL Mean Corpuscular Hemoglobin 31 25-34 PG Mean Corpuscular Hemoglobin Concent 34 32-36 G/DL Red Cell Distribution Width 12.8 10.0-14.5 % Platelet Count 228 130-400 10^3/uL Mean Platelet Volume 9.8 7.4-10.4 FL Neutrophils (%) (Auto) 59 42-75 % Lymphocytes (%) (Auto) 25 12-44 % Monocytes (%) (Auto) 10 0-12 % Eosinophils (%) (Auto) 6 0-10 % Basophils (%) (Auto) 0 0-10 % Neutrophils # (Auto) 4.3 1.8-7.8 X 10^3 Lymphocytes # (Auto) 1.8 1.0-4.0 X 10^3 Monocytes # (Auto) 0.7 0.0-1.0 X 10^3 Eosinophils # (Auto) 0.4 H 0.0-0.3 10^3/uL Basophils # (Auto) 0.0 0.0-0.1 10^3/uL Prothrombin Time 12.9 12.2-14.7 SEC INR Comment 0.9 0.8-1.4 Activated Partial Thromboplast Time 27 24-35 SEC Sodium Level 138 135-145 MMOL/L Potassium Level 4.0 3.6-5.0 MMOL/L Chloride Level 104 98-107 MMOL/L Carbon Dioxide Level 22 21-32 MMOL/L Anion Gap 12 5-14 MMOL/L Blood Urea Nitrogen 9 7-18 MG/DL Creatinine 0.94 0.60-1.30 MG/DL Estimat Glomerular Filtration Rate > 60 BUN/Creatinine Ratio 10 Glucose Level 94 70-105 MG/DL Calcium Level 9.1 8.5-10.1 MG/DL Corrected Calcium 8.9 8.5-10.1 MG/DL Magnesium Level 2.0 1.6-2.4 MG/DL Total Bilirubin 0.5 0.1-1.0 MG/DL Aspartate Amino Transf (AST/SGOT) 46 H 5-34 U/L Alanine Aminotransferase (ALT/SGPT) 71 H 0-55 U/L Alkaline Phosphatase 90 40-136 U/L Myoglobin 47.8 10.0-92.0 NG/ML Troponin I < 0.028 <0.028 NG/ML Total Protein 7.3 6.4-8.2 GM/DL Albumin 4.2 3.2-4.5 GM/DL My Orders Marian - CONSTANCE ANN MD Cbc With Automated Diff (05/10/19 10:41) Magnesium (05/10/19 10:41) Chest 1 View, Ap/Pa Only (05/10/19 10:41) Ekg Tracing (05/10/19 10:41) Comprehensive Metabolic Panel (05/10/19 10:41) Myoglobin Serum (05/10/19 10:41) Protime With Inr (05/10/19 10:41) Partial Thromboplastin Time (05/10/19 10:41) O2 (05/10/19 10:41) Monitor-Rhythm Ecg Trace Only (05/10/19 10:41) Ed Iv/Invasive Line Start (05/10/19 10:41) Troponin I (05/10/19 10:41) Nitroglycerin 0.4 Mg Btl 25's (Nitrostat (05/10/19 10:45) Aspirin Chewable Tablet (Baby Aspirin Ch (05/10/19 10:45) Medications Given in ED Current Medications Medications Dose Ordered Sig/Yaneli Route Start Time Stop Time Status Last Admin Dose Admin Aspirin 243 mg ONCE ONCE PO 05/10/19 10:45 05/10/19 10:46 DC 05/10/19 10:58 243 MG Nitroglycerin 0.4 mg UD PRN SL 05/10/19 10:45 05/10/19 15:36 DC 05/10/19 10:58 0.4 MG Vital Signs/I&O 05/10/19 05/10/19 10:24 12:15 Temp 37.0 37.0 Pulse 75 72 Resp 16 11 B/P (MAP) 133/84 (100) 120/73 (100) Pulse Ox 100 97 O2 Delivery Room Air Blood Pressure Mean: 100 Progress Progress Note : Progress Note Initial workup was unremarkable. Chest pain improved down to 2/10 with one nitroglycerin. Case was discussed with Dr. Mederos. Admission was recommended. Patient acknowledged the seriousness of his coronary artery disease and the risk of leaving AGAINST MEDICAL ADVICE before completing the workup and observation period. Haeg knowledge leaving before workup is complete code result in serious consequences or . However, he elected to leave against medical advice. Initial ECG Impression Date: May 10, 2019 Initial ECG Impression Time: 10:27 Initial ECG Rate: 73 Initial ECG Rhythm: Normal Sinus Initial ECG Intervals: Normal Initial ECG Impression: Normal Comment Normal sinus rhythm with no ST elevation or depression. No abnormal intervals or axis deviation. Diagnostic Imaging Diagonstic Imaging: Xray Plain Films/CT/US/NM/MRI: chest Comments NAME: GISELLE CELESTIN [facility] REC#: [id number] PT STATUS: REG ER : 1985 PHYSICIAN: CONSTANCE ANN MD ADMIT DATE: 05/10/19/ER Signed Date of Exam:05/10/19 CHEST 1 VIEW, AP/PA ONLY INDICATION: Chest pain. TECHNIQUE: Single view chest 11:04 AM. CORRELATION STUDY: 03/21/2019 FINDINGS: The heart size, mediastinal configuration and pulmonary vascularity are within normal limits. The lungs are clear with no consolidating infiltrate. There is no significant effusion or pneumothorax. IMPRESSION: 1. Negative for acute abnormality of the chest. Dictated by: Dictated on workstation # [id number] Dict: 05/10/19 1108 Trans: 05/10/19 1356 DO [id number] Interpreted by: BIN PACKER DO Electronically signed by: BIN PACKER DO 05/10/19 1356 Departure Impression Primary Impression: Chest pain Qualified Codes: R07.9 - Chest pain, unspecified Additional Impressions: Left against medical advice Coronary artery disease Qualified Codes: I25.10 - Atherosclerotic heart disease of [place] coronary artery without angina pectoris Disposition: 07 AGAINST MEDICAL ADVICE Condition: Against Medical Advice Departure-Patient Inst. Referrals: NO,LOCAL PHYSICIAN (PCP/Family) Primary Care Physician Copy Copies To 1: MAREN PARR MD FACP [facility] CONSTANCE ANN MD May 10, 2019 12:25
== END 2019-05-10 12:15 | disposition left against medical advice (07) ==
LOC: EDUNIT# 10:24 → ER 10:25
DX: R07.89 Other chest pain (principal); I25.10 Atherosclerotic heart disease of native coronary artery without angina pectoris; I25.2 Old myocardial infarction; E78.00 Pure hypercholesterolemia, unspecified; F41.9 Anxiety disorder, unspecified; F17.200 Nicotine dependence, unspecified, uncomplicated; Z95.5 Presence of coronary angioplasty implant and graft; Z79.82 Long term (current) use of aspirin; Z79.02 Long term (current) use of antithrombotics/antiplatelets; Z90.49 Acquired absence of other specified parts of digestive tract; Z82.49 Family history of ischemic heart disease and other diseases of the circulatory system
CPT/HCPCS: 36415; 71045; 80053; 83735; 83874; 84484; 85025; 85610; 85730; 93005; 93041

== ENCOUNTER 2019-06-30 18:49 | Emergency (ER) | payer SELFPAY ==
[~2019-06-30] VITALS: Ht 187 cm; Wt 100.0 kg
[2019-06-30] MEDS ORDERED: HYDROcodone/APAP 5 MG/325 MG (LORTAB) TAB PO ONE (19:15)
--- NOTE | 2019-06-30 19:33 | Diagnostic Imaging Report ---
EXAMINATION: Left knee radiographs, 3 views. COMPARISON: None. HISTORY: 34-year-old male, hit left knee with hammer. FINDINGS: There is no identified acute fracture. There is no knee joint effusion. There is no radiopaque foreign body. Joint spaces are well preserved. IMPRESSION: Unremarkable radiographs of the left knee. Dictated by: Dictated on workstation # [id number]
--- NOTE | 2019-06-30 20:03 | ED Lower Extremity ---
General Chief Complaint: Lower Extremity Stated Complaint: INJ LEFT KNEE Nursing Triage Note: Pt to FT2 via WC with c/o left knee pain after "accidently hitting it with a hammer at work" approx 1330 today. Pt states pain is a 10/10. Knee has swelling present on medial side. Nursing Sepsis Screen: No Definite Risk Source: patient Exam Limitations: no limitations History of Present Illness Date Seen by Provider: Jun 30, 2019 Time Seen by Provider: 19:11 Initial Comments This 34-year-old gentleman presents to the emergency room with an injury to the right knee. He accidentally struck his knee with a hammer at work around 13:30 today. The pain has escalated since then and he is now having difficulty ambulating. The focus of his pain is just proximal to the medial anterior joint line. There is no visible injury on the exterior. Onset: this afternoon Allergies and Home Medications Allergies Coded Allergies: No Known Drug Allergies (Unverified , 01/09/19) Home Medications Aspirin 81 Mg Tab.chew, 81 MG PO DAILY Prescribed by: MAREN PARR on 03/21/19 1158 Atorvastatin Calcium 80 Mg Tablet, 80 MG PO HS Prescribed by: MAREN PARR on 03/21/19 1158 Cefadroxil 500 Mg Capsule, 500 MG PO BID Prescribed by: DANELLE CLARK on 03/24/191944 Clopidogrel Bisulfate 75 Mg Tablet, 75 MG PO DAILY Prescribed by: MAREN PARR on 03/21/19 115 Lisinopril 5 Mg Tablet, 5 MG PO DAILY Prescribed by: MAREN PARR on 03/21/19 1158 Metoprolol Succinate 50 Mg Tab.er.24h, 50 MG PO DAILY Prescribed by: MAREN PARR on 03/21/19 1158 Tramadol HCl 50 Mg Tablet, 50 MG PO Q6H PRN for PAIN Prescribed by: DANELLE CLARK on 03/24/191944 Patient Home Medication List Home Medication List Reviewed: Yes Review of Systems Constitutional: no symptoms reported EENTM: no symptoms reported Respiratory: no symptoms reported Cardiovascular: no symptoms reported Gastrointestinal: no symptoms reported Genitourinary: no symptoms reported Musculoskeletal: see HPI Skin: no symptoms reported Psychiatric/Neurological: No Symptoms Reported Past Qavfsps-Oghcko-Okldyt Hx Past Med/Social Hx: Reviewed Nursing Past Med/Soc Hx Patient Social History Alcohol Use: Rarely Uses Number of Drinks Today: AA Alcohol Beverage of Choice: Beer Recreational Drug Use: Yes Drug of Choice: Marijuana Smoking Status: Current Everyday Smoker Recent Foreign Travel: No Contact w/Someone Who Travel: No Recent Infectious Disease Expo: No Recent Hopitalizations: Yes (HEART CATH AROUND ) Physical Abuse: No Sexual Abuse: No Mistreated: No Fear: No Immunizations Up To Date Tetanus Booster (TDap): Less than 5yrs Seasonal Allergies Seasonal Allergies: No Past Medical History Surgeries: Yes (2 heart stents ) Appendectomy, Cardiac, Coronary Stent Respiratory: No Cardiac: Yes Coronary Artery Disease, Heart Attack, High Cholesterol Neurological: No Genitourinary: No Gastrointestinal: No Musculoskeletal: No Endocrine: No HEENT: No Cancer: No Psychosocial: Yes Anxiety Integumentary: No Blood Disorders: No Family Medical History Reviewed Nursing Family Hx Heart Disease Physical Exam Vital Signs Vital Signs - First Documented 06/30/19 19:14 Temp 37.3 Pulse 94 Resp 20 B/P (MAP) 146/88 (107) Pulse Ox 99 O2 Delivery Room Air Capillary Refill : Less Than 3 Seconds Height, Weight, BMI Height: '" Weight: lbs. oz. kg; 28.00 BMI Method: General Appearance: WD/WN, mild distress HEENT: normal ENT inspection Cardiovascular: regular rate, rhythm, no edema, no murmur Respiratory: normal breath sounds, no respiratory distress, wheezing Legs: left leg non-tender, left leg normal inspection, left leg normal range of motion, left leg no evidence of injury Knees: left knee bone tenderness, left knee soft tissue tenderness, left knee other (there is tenderness just proximal to the medial anterior joint line. 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 nml as tested, no motor/sensory deficits, alert, normal mood/affect, oriented x 3 Skin: normal color, warm/dry Procedures/Interventions Suture Size: 4-0 Progress/Results/Core Measures Results/Orders My Orders Orders - CONSTANCE ANN MD Knee, Left, 3 Views (06/30/19 19:14) Hydrocodone/Apap 5/325 Tablet (Lortab 5 (06/30/19 19:15) Knee, Left, 3 Views (06/30/19 20:15) Crutches (06/30/19 20:40) Medications Given in ED Current Medications Medications Dose Ordered Sig/Yaneli Route Start Time Stop Time Status Last Admin Dose Admin Acetaminophen/ Hydrocodone Bitart 1 tab ONCE ONCE PO 06/30/19 19:15 06/30/19 19:16 DC 06/30/19 19:23 1 TAB Vital Signs/I&O 06/30/19 06/30/19 19:14 20:59 Temp 37.3 37.3 Pulse 94 89 Resp 20 20 B/P (MAP) 146/88 (107) 135/90 (107) Pulse Ox 99 99 O2 Delivery Room Air Room Air Blood Pressure Mean: 107 Progress Progress Note : Progress Note Patient was given hydrocodone for pain. Initial x-ray was read as negative. However, on my viewing there is a density at the medial distal left thigh right at the area of his greatest tenderness. This area of density was thought to possibly be related to clothing. Short's were removed and the x-rays were repeated. No abnormalities were found. Patient was dispensed with crutches and discharged home. Diagnostic Imaging Diagonstic Imaging: Xray Plain Films/CT/US/NM/MRI: chest Comments Chest x-ray viewed by me and report reviewed. See report below: NAME: GISELLE CELESTIN [facility] REC#: [id number] PT STATUS: REG ER : 1985 PHYSICIAN: CONSTANCE ANN MD ADMIT DATE: 06/30/19/ER Draft Date of Exam:06/30/19 KNEE, LEFT, 3 VIEWS EXAMINATION: Left knee radiographs, 3 views. COMPARISON: None. HISTORY: 34-year-old male, hit left knee with hammer. FINDINGS: There is no identified acute fracture. There is no knee joint effusion. There is no radiopaque foreign body. Joint spaces are well preserved. IMPRESSION: Unremarkable radiographs of the left knee. Dictated on workstation # [id number] Dict: 06/30/191926 Trans: 06/30/191932 [facility] [id number] Interpreted by: ISAI MORAN MD Departure Impression Primary Impression: Contusion of knee Qualified Codes: S80.02XA - Contusion of left knee, initial encounter Disposition: 01 HOME, SELF-CARE Condition: Improved Departure-Patient Inst. Decision time for Depature: 20:40 Referrals: NO,LOCAL PHYSICIAN (PCP/Family) Primary Care Physician Patient Instructions: Contusion (DC) Add. Discharge Instructions: Use ibuprofen 600 mg every 6 hours as needed for primary pain control. Add Tylenol (acetaminophen) (up to 1000 mg every 6 hours as needed for additional pain relief. Ice in 20 minute intervals to help reduce pain and swelling. Gradually increase level of activity as pain allows. Use crutches if necessary. Return to care in the ER or contact her primary care provider if not improving as expected over the next several days or if you develop any further problems or concerns. All discharge instructions reviewed with patient and/or family. Voiced understanding. Work/School Note: Work Release Form Date Seen in the Emergency Department: Jun 30, 2019 Return to Work: Jul 01, 2019 Other Restrictions Listed Below: Use crutches as needed. Kneeling may not be possible for a while. Restrictions: Gradually increase level of activity as pain allows. CONSTANCE ANN MD Jun 30, 2019 20:03
[2019-06-30 20:59] VITALS: BP 135/90
--- NOTE | 2019-06-30 21:51 | Diagnostic Imaging Report ---
INDICATION: Repeat left knee exam due to artifact. COMPARISON STUDY: Left knee from 7:27 PM. FINDINGS: 3 views of the left knee demonstrate normal ossification. No fracture, dislocation or joint effusion is present. IMPRESSION: Normal left knee Dictated by: Dictated on workstation # [id number]
--- OUTSIDE RECORDS SUMMARY | 2019-07-03 04:29 | XMS REPORT | Continuity of Care Document ---
Demographics x Preferred Language Unknown Marital Status Unknown Uatsdin Affiliation Unknown Race Unknown Ethnic Group Unknown Author Organization Unknown Address Unknown Phone Unavailable Allergies Active Description Code Type Severity Reaction Onset Reported/Identified Relationship to Patient Clinical Status Yes No Known Drug Allergies [id number] Drug Allergy Unknown N/A 01/09/2019 Medications There is no data. Problems Date Dx Coded Attending Type Code Diagnosis Diagnosed By 01/09/2019 EDITH WOOTEN APRN Ot S61.411A LACERATION WITHOUT FOREIGN BODY OF RIGHT 01/09/2019 EDITH WOOTEN APRN Ot W26.8XXA CONTACT WITH OTHER SHARP OBJECT(S), NEC, 01/09/2019 EDITH WOOTEN APRN Ot Y92.59 [facility] 03/21/2019 KAROLYN MOORE FACC, ALI FACP CCDS Ot F17.200 NICOTINE DEPENDENCE, UNSPECIFIED, UNCOMP 03/21/2019 KAROLYN MOORE FACC, ALI FACP CCDS Ot F41.9 ANXIETY DISORDER, UNSPECIFIED 03/21/2019 KAROLYN MOORE FACC, ALI FACP CCDS Ot I21.19 STEMI INVOLVING OT CORONARY ARTERY OF I 03/21/2019 KAROLYN MOORE FACC, ALI FACP CCDS Ot I25.10 ATHSCL HEART DISEASE OF [place] CORONARY 03/24/2019 DANELLE CLARK Ot F41.9 ANXIETY DISORDER, UNSPECIFIED 03/24/2019 DANELLE CLARKP Ot G89.18 OTHER ACUTE POSTPROCEDURAL PAIN 03/24/2019 DANELLE CLARKP Ot I25.2 OLD MYOCARDIAL INFARCTION 03/24/2019 DANELLE CLARKP Ot 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 03/24/2019 DANELLE CLARKP Ot Z79.02 STEAMBLASTER (CURRENT) USE OF ANTITHROMBOTI 03/24/2019 DANELLE CLARKP Ot Z79.82 HALF-WAY (CURRENT) USE OF ASPIRIN 03/24/2019 DANELLE CLARKP Ot Z90.49 ACQUIRED ABSENCE OF OTHER SPECIFIED PART 03/29/2019 DANELLE CLARKP Ot F41.9 ANXIETY DISORDER, UNSPECIFIED 03/29/2019 DANELLE CLARKP Ot G89.18 OTHER ACUTE POSTPROCEDURAL PAIN 03/29/2019 DANELLE CLARKP Ot I25.2 OLD MYOCARDIAL INFARCTION 03/29/2019 DANELLE CLARKP Ot 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 03/29/2019 DANELLE CLARKP Ot Z79.02 STEAMBLASTER (CURRENT) USE OF ANTITHROMBOTI 03/29/2019 DANELLE CLARKP Ot Z79.82 HALF-WAY (CURRENT) USE OF ASPIRIN 03/29/2019 DANELLE CLARKP [...] 04/04/2019 SIRI TORRES MD Ot Z79. 02 STEAMBLASTER (CURRENT) USE OF ANTITHROMBOTI 04/04/2019 SIRI TORRES MD Ot Z79. 82 HALF-WAY (CURRENT) USE OF ASPIRIN 04/04/2019 SIRI TORRES MD Ot Z82. 49 FAMILY HX OF ISCHEM HEART DIS AND OTH DI 04/04/2019 SIRI TORRES MD Ot Z90. 49 ACQUIRED ABSENCE OF OTHER SPECIFIED PART 04/04/2019 SIRI TORRES MD Ot Z95. 5 PRESENCE OF CORONARY ANGIOPLASTY IMPLANT 04/07/2019 SIRI TORRES MD Ot E78. 00 PURE HYPERCHOLESTEROLEMIA, UNSPECIFIED 04/07/2019 SRII TORRES MD Ot F17.200 NICOTINE DEPENDENCE, UNSPECIFIED, UNCOMP 04/07/2019 SIRI TORRES MD Ot F41. 9 ANXIETY DISORDER, UNSPECIFIED 04/07/2019 SIRI TORRES MD, Ot I25. 2 OLD MYOCARDIAL INFARCTION 04/07/2019 SIRI TORRES MD Ot N50.819 TESTICULAR PAIN, UNSPECIFIED 04/07/2019 SIRI TORRES MD Ot S30.22XA CONTUSION OF SCROTUM AND TESTES, INITIAL 04/07/2019 SIRI TORRES MD, Ot X58.XXXA EXPOSURE TO OTHER SPECIFIED FACTORS, INI 04/07/2019 SIRI TORRES MD, Ot Z79. 02 STEAMBLASTER (CURRENT) USE OF ANTITHROMBOTI 04/07/2019 SIRI TORRES MD, Ot Z79. 82 HALF-WAY (CURRENT) USE OF ASPIRIN 04/07/2019 SIRI TORRES MD, Ot Z82. 49 FAMILY HX OF ISCHEM HEART DIS AND OTH DI 04/07/2019 SIRI TORRES MD Ot Z90. 49 ACQUIRED ABSENCE OF OTHER SPECIFIED PART 04/07/2019 SIRI TORRES MD Ot Z95. 5 PRESENCE OF CORONARY ANGIOPLASTY IMPLANT 05/10/2019 CONSTANCE ANN MD Ot E78.00 PURE HYPERCHOLESTEROLEMIA, UNSPECIFIED 05/10/2019 CONSTANCE ANN MD Ot F17.200 NICOTINE DEPENDENCE, UNSPECIFIED, UNCOMP 05/10/2019 CONSTANCE ANN MD Ot F41.9 ANXIETY DISORDER, UNSPECIFIED 05/10/2019 CONSTANCE ANN MD Ot I25.10 ATHSCL HEART DISEASE OF [place] CORONARY 05/10/2019 CONSTANCE ANN MD Ot I25.2 OLD MYOCARDIAL INFARCTION 05/10/2019 CONSTANCE ANN MD Ot R07.89 OTHER CHEST PAIN 05/10/2019 CONSTANCE ANN MD Ot R07.9 CHEST PAIN, UNSPECIFIED 05/10/2019 CONSTANCE ANN MD Ot Z79.02 STEAMBLASTER (CURRENT) USE OF ANTITHROMBOTI 05/10/2019 CONSTANCE ANN MD Ot Z79.82 HALF-WAY (CURRENT) USE OF ASPIRIN 05/10/2019 CONSTANCE ANN MD Ot Z82.49 FAMILY HX OF ISCHEM HEART DIS AND OTH DI 05/10/2019 CONSTANCE ANN MD Ot Z90.49 ACQUIRED ABSENCE OF OTHER SPECIFIED PART 05/10/2019 CONSTANCE ANN MD, Ot Z95.5 PRESENCE OF CORONARY ANGIOPLASTY IMPLANT 05/13/2019 CONSTANCE ANN MD, Ot E78.00 PURE HYPERCHOLESTEROLEMIA, UNSPECIFIED 05/13/2019 CONSTANCE ANN MD, Ot F17.200 NICOTINE DEPENDENCE, UNSPECIFIED, UNCOMP 05/13/2019 CONSTANCE ANN MD, Ot F41.9 ANXIETY DISORDER, UNSPECIFIED 05/13/2019 CONSTANCE ANN MD, Ot I25.10 ATHSCL HEART DISEASE OF [place] CORONARY 05/13/2019 CONSTANCE ANN MD, Ot I25.2 OLD MYOCARDIAL INFARCTION 05/13/2019 CONSTANCE ANN MD, Ot R07.89 OTHER CHEST PAIN 05/13/2019 CONSTANCE ANN MD, Ot R07.9 CHEST PAIN, UNSPECIFIED 05/13/2019 CONSTANCE ANN MD, Ot Z79.02 STEAMBLASTER (CURRENT) USE OF ANTITHROMBOTI 05/13/2019 CONSTANCE ANN MD, Ot Z79.82 STEAMBLASTER (CURRENT) USE OF ASPIRIN 05/13/2019 CONSTANCE ANN MD, Ot Z82.49 FAMILY HX OF ISCHEM HEART DIS AND OTH DI 05/13/2019 CONSTANCE ANN MD, Ot Z90.49 ACQUIRED ABSENCE OF OTHER SPECIFIED PART 05/13/2019 CONSTANCE ANN MD, Ot Z95.5 PRESENCE OF CORONARY ANGIOPLASTY IMPLANT Procedures Code Description Performed By Per formed On 500647X DI LATION OF 1 COR ART WITH 2 DRUG-ELUT, 03/20/2019 [id number] ME ASURE OF CARDIAC SAMPL PRESSURE, L H 03/20/2019 [id number] FL UOROSCOPY OF MULT COR ART USING L OSM 03/20/2019 [id number] FL UOROSCOPY OF LEFT HEART USING LOW [...] d white blood cell (WBC) differential - 05/10/19 10:51 Blood leukocytes automated count (number/volume) 7.3 10*3/uL 4.3-11.0 Blood erythrocytes automated count (number/volume) 4.67 10*6/uL 4.35-5.85 Venous blood hemoglobin measurement (mass/volume) 14.6 g/dL 13.3-17.7 Blood hematocrit (volume fraction) 43 % 40-54 Automated erythrocyte mean corpuscular volume 91 [ foz_us] 80-99 Automated erythrocyte mean corpuscular h emoglobin (mass per erythrocyte) 31 pg 25-34 Automated erythrocyte mean corpuscular h emoglobin concentration measurement (mass/volume) 34 g/dL 32-36 Automated erythrocyte distribution width ratio 12. 8 % 10.0- 14.5 Automated blood platelet count (count/volume) 228 10*3/uL 130-400 Automated blood platelet mean volume measurement 9.8 [foz_us] 7.4-10.4 Automated blood neutrophils/100 leukocytes 59 % 42-75 Automated blood lymphocytes/100 leukocytes 25 % 12-44 Blood monocytes/100 leukocytes 10 % 0-12 Automated blood eosinophils/100 leukocytes 6 % 0-10 Automated blood basophils/100 leukocytes 0 % 0-10 Blood neutrophils automated count (number/volume) 4.3 10*3 1.8-7.8 Blood lymphocytes automated count (number/volume) 1.8 10*3 1.0-4.0 Blood monocytes automated count (number/volume) 0. 7 10*3 0.0-1.0 Automated eosinophil count 0.4 10*3/uL 0 .0-0.3 Automated blood basophil count (count/volume) 0.0 10*3/uL 0.0-0.1 PT panel in platelet poor plasma by coag ulation assay - 05/10/19 10:51 Prothrombin time (PT) in platelet poor plasma by coagu lation assay 12.9 s 12.2-14.7 INR in platelet poor plasma or blood by coagulation as say 0.9 0.8-1.4 Activated partial thromboplastin time (a PTT) in platelet poor plasma bycoagulation assay - 05/10/19 10:51 Activated partial thromboplastin time (a PTT) in platelet poor plasma bycoagulation assay 27 s 24-35 Comprehensive metabolic panel - 05/10/19 10:51 Serum or plasma sodium measurement (moles/volume) 138 mmol/L 135-145 Serum or plasma potassium measurement (moles/volume) 4.0 mmol/L 3.6-5.0 Serum or plasma chloride measurement (moles/volume) 104 mmol/L 98-107 Carbon dioxide 22 mmol/L 21-32 Serum or plasma anion gap determination (moles/volume) 12 mmol/L 5-14 Serum or plasma urea nitrogen measurement (mass/volume ) 9 mg/dL 7-18 Serum or plasma creatinine measurement (mass/volume) 0.94 mg/dL 0.60-1.30 Serum or plasma urea nitrogen/creatinine mass ratio 10 NRG Serum or plasma creatinine measurement w ith calculation of estimated glomerular filtration rate > NRG Serum or plasma glucose measurement (mass/volume) 94 mg/dL 70-105 Serum or plasma calcium measurement (mass/volume) 9.1 mg/dL 8.5-10.1 Serum or plasma total bilirubin measurement (mass/volu me) 0.5 mg/dL 0.1-1.0 Serum or plasma alkaline phosphatase kathy surement (enzymatic activity/volume) 90 U/L 40-136 Serum or plasma aspartate aminotransfera se measurement (enzymatic activity/volume) 46 U/L 5-34 Serum or plasma alanine aminotransferase measurement (enzymatic activity/volume) 71 U/L 0-55 Serum or plasma protein measurement (mass/volume) 7.3 g/dL 6.4-8.2 Serum or plasma albumin measurement (mass/volume) 4.2 g/dL 3.2-4.5 CALCIUM CORRECTED 8.9 mg/dL 8.5-10.1 Magnesium - 05/10/19 10:51 Magnesium 2.0 mg/dL 1.6-2.4 Serum or plasma troponin i.cardiac measu rement (mass/volume) - 05/10/19 10:51 Serum or plasma troponin i.cardiac measurement (mass/v olume) < ng/mL <0.028 Myoglobin, serum - 05/10/19 10:51 Myoglobin, serum 47.8 ng/mL 10.0-92.0 Encounters ACCT No. Visit Date/Time Discharge Status Pt. Type Provider Facility Loc./Unit Complaint [id number] 05/29/2019 10:15:00 05/29/2019 23:59: 59 [facility] [id number] 06/30/2019 18:50:00 020 21:00:00 DIS Emergency SETH MOORE, CONSTANCE Tariq [facility] ER INJ LEFT KNEE [id number] 05/10/2019 10:25:00 12:15:00 DIS Emergency SETH MOORE, CONSTANCE Tariq [facility] ER CHEST PAIN [id number] 04/03/2019 21:22:00 00:07:00 DIS Emergency SIRI TORRES MD [facility] ER GROIN PAIN [id number] 03/24/2019 16:59:00 19:53:00 DIS Emergency DANELLE CLARK [facility] ER PAIN WHERE INCISION SIT ES WERE FOR CATH [id number] 03/20/2019 10:41:00 12:05:00 DIS Inpatient KAROLYN MOORE FACC, MAREN GERARD CCD S [facility] ICU ACUTE [place] [id number] 01/09/2019 18:48:00 19:25:00 DIS Emergency EDITH WOOTEN OVEN EQUIPMENT REPAIRER [facility] ER R HAND THUMB INJ
== END 2019-06-30 21:00 | disposition home or self-care (01) ==
LOC: EDUNIT# 18:49 → ER 18:50
DX: S80.02XA Contusion of left knee, initial encounter (principal); I25.10 Atherosclerotic heart disease of native coronary artery without angina pectoris; E78.00 Pure hypercholesterolemia, unspecified; I25.2 Old myocardial infarction; F17.200 Nicotine dependence, unspecified, uncomplicated; Z79.82 Long term (current) use of aspirin; Z95.5 Presence of coronary angioplasty implant and graft; W22.8XXA Striking against or struck by other objects, initial encounter; Y92.59 Other trade areas as the place of occurrence of the external cause; Y99.0 Civilian activity done for income or pay
CPT/HCPCS: 73562

== ENCOUNTER 2019-08-04 05:21 | Emergency (ER) | payer SELFPAY ==
[~2019-08-04] VITALS: Ht 187 cm; Wt 100.0 kg
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
[2019-08-04] MEDS ORDERED: ASPIRIN 81 MG CHEW (CHILDREN'S ASA) PO ONE (05:30)
[2019-08-04 05:46] LABS: BASOPHILS # (AUTO) 0.1 10^3/uL (0.0-0.1); BASOPHILS % (AUTO) 1 % (0-10); EOSINOPHILS # (AUTO) 0.3 10^3/uL (0.0-0.3); EOSINOPHILS % (AUTO) 3 % (0-10); HEMATOCRIT 41 % (40-54); HEMOGLOBIN 14.5 G/DL (13.3-17.7); LYMPHOCYTES # (AUTO) 2.2 X 10^3 (1.0-4.0); LYMPHOCYTES % (AUTO) 24 % (12-44); MEAN CORPUSCULAR HEMOGLOBIN 32 PG (25-34); MEAN CORPUSCULAR HGB CONC 35 G/DL (32-36); MEAN CORPUSCULAR VOLUME 89 FL (80-99); MEAN PLATELET VOLUME 9.3 FL (7.4-10.4); MONOCYTES # (AUTO) 0.9 X 10^3 (0.0-1.0); MONOCYTES % (AUTO) 10 % (0-12); NEUTROPHILS # (AUTO) 5.6 X 10^3 (1.8-7.8); NEUTROPHILS % (AUTO) 62 % (42-75); PLATELET COUNT 364 10^3/uL (130-400); RED CELL DISTRIBUTION WIDTH 11.9 % (10.0-14.5)
[2019-08-04] MEDS: NITROGLYCERIN 0.4 MG SL TABS BTL 25'S SL PRN ×3 (05:53→06:12)
[2019-08-04 06:00] LABS: ALBUMIN 4.3 GM/DL (3.2-4.5)
[2019-08-04 06:01] LABS: CHLORIDE 103 MMOL/L (98-107); POTASSIUM 3.3 MMOL/L (3.6-5.0); SODIUM 138 MMOL/L (135-145)
[2019-08-04 06:02] LABS: AMYLASE 23 U/L (25-125); CALCIUM 8.9 MG/DL (8.5-10.1)
[2019-08-04 06:03] LABS: GLUCOSE 105 MG/DL (70-105); TOTAL PROTEIN 7.5 GM/DL (6.4-8.2)
[2019-08-04 06:04] LABS: CARBON DIOXIDE 23 MMOL/L (21-32)
[2019-08-04 06:05] LABS: BILIRUBIN,TOTAL 0.4 MG/DL (0.1-1.0)
[2019-08-04 06:07] LABS: ALKALINE PHOSPHATASE 80 U/L (40-136); CREATININE SERUM 0.93 MG/DL (0.60-1.30); GFR ESTIMATED > 60
[2019-08-04 06:08] LABS: BUN/CREATININE RATIO 9
[2019-08-04 06:09] LABS: INR 0.9 (0.8-1.4); PROTHROMBIN TIME PATIENT 12.6 SEC (12.2-14.7)
[2019-08-04 06:10] LABS: ALANINE AMINOTRANSFERASE 17 U/L (0-55); MAGNESIUM 2.1 MG/DL (1.6-2.4)
[2019-08-04 06:11] LABS: CREATINE KINASE 207 U/L (30-200); LIPASE 23 U/L (8-78)
--- NOTE | 2019-08-04 06:11 | ED Chest Pain ---
General Chief Complaint: Chest Pain Stated Complaint: CHEST PAIN Nursing Triage Note: Patient states chest pain started yesterday at 1300 but became worse this morning at approximately 0500. Patient states sternal chest pain into his shoulder. Patient advises hx. of heart attack with stent placement x 1 and balloon placement in february. Rating pain 10/10. Nursing Sepsis Screen: No Definite Risk Source: patient, old records (ALFREDO MORENO DO) History of Present Illness Date Seen by Provider: Aug 04, 2019 Time Seen by Provider: 05:28 Initial Comments PT ARRIVES VIA POV FROM WORK C/O CHEST PAIN SINCE YESTERDAY MORNING PAIN LASTED ALL DAY, AND WAS STILL HAVING PAIN WHEN HE WENT TO BED LAST NIGHT WOKE UP AT 0315 TO GO TO WORK TODAY, AND AROUND 032, WAS DRINKING COFFEE AND PAIN BEGAN AGAIN WENT TO WORK ( WORKS ON [employer]) AND PAIN CONTINUED TO INCREASE, SO HE CAME HERE PAIN IS IN LEFT UPPER CHEST AND RADIATES TO LEFT SHOULDER C/O MILD SHORTNESS OF BREATH TODAY C/O MILD DIZZINESS--STATES HE WAS REALLY DIZZY YESTERDAY AND HAD TO LAY DOWN + SWEATS NO NAUSEA/VOMITING SLIGHT SENSATION OF PALPITATIONS--IRREGULAR/HEART BEATING HARD NO SWELLING IN LEGS/ FEET OR PAIN IN [place] STATES HE HAD SOME SHORTNESS OF BREATH AND A LITTLE BIT OF CHEST PAIN OFF AND ON WHILE HE WAS AT WORK ON Sunday08/01/19 --EVENTUALLY WENT AWAY PT HAD STEMI 02/2019 AND HAD 2 STENTS AND ANGIOPLASTY TO RCA STATES THE PAIN TODAY IS THE SAME, BUT NOT INTENSE AND IT DOES NOT RADIATE TO HIS BACK TODAY, LIKE IT DID THEN RATES TODAY'S PAIN 10/10 AT THIS TIME. STATES HE NEVER FOLLOWED UP WITH CARDIOLOGY AFTER HE WAS DISMISSED FROM HOSPITAL. HAS NOT TAKEN ANY OF HIS MEDICATIONS TODAY PCP: [facility] (ALFREDO MORENO DO) Allergies and Home Medications Allergies Coded Allergies: No Known Drug Allergies (Unverified , 01/09/19) Home Medications Aspirin 81 Mg Tab.chew, 81 MG PO DAILY Prescribed by: MAREN PARR on 03/21/19 115 Atorvastatin Calcium 80 Mg Tablet, 80 MG PO HS Prescribed by: MAREN PARR on 03/21/19 1158 Cefadroxil 500 Mg Capsule, 500 MG PO BID Prescribed by: DANELLE CLARK on 03/24/191944 Clopidogrel Bisulfate 75 Mg Tablet, 75 MG PO DAILY Prescribed by: MAREN PARR on 03/21/19 1158 Lisinopril 5 Mg Tablet, 5 MG PO DAILY Prescribed by: MAREN PARR on 03/21/19 1158 Metoprolol Succinate 50 Mg Tab.er.24h, 50 MG PO DAILY Prescribed by: MAREN PARR on 03/21/19 1158 Tramadol HCl 50 Mg Tablet, 50 MG PO Q6H PRN for PAIN Prescribed by: DANELLE CLARK on 03/24/191944 Patient Home Medication List Home Medication List Reviewed: Yes (GISELLE HUGHES MD) Review of Systems Review of Systems Constitutional: see HPI, diaphoresis, dizziness EENTM: No Symptoms Reported Respiratory: See HPI; Denies Cough, Denies Orthopnea; Shortness of Air Cardiovascular: See HPI, Chest Pain; Denies Edema; Lightheadedness, Palpitations; Denies Syncope Gastrointestinal: No Symptoms Reported; Denies Abdominal Pain, Denies Nausea, Denies Vomiting Genitourinary: No Symptoms Reported Musculoskeletal: see HPI Skin: no symptoms reported Psychiatric/Neurological: No Symptoms Reported Endocrine: No Symptoms Reported Hematologic/Lymphatic: No Symptoms Reported (ALFREDO MORENO DO) Past Qzzkxlg-Ibpamu-Yrdsfk Hx Patient Social History Alcohol Use: Occasionally Uses (HISTORY OF ABUSE--DRANK DAILY-AT LEAST A 12 PACK/DAY-CLAIMS ONLY "OCCASIONALLY" DRINKS NOW AND NONE FOR 3 MONTHS, PER PT ON 08/04/19) Number of Drinks Today: AA Alcohol Beverage of Choice: Beer Recreational Drug Use: Yes (+IV METH USE, THC USE-CLAIMS NONE "FOR 10 YEARS" PER PT 08/04/19) Drug of Choice: + IV METH USE, THC USE-CLAIMS "NONE FOR 10 YEARS" PER PT 08/04/19 Smoking Status: Current Everyday Smoker (3 PPD) Type Used: Cigarettes (3 PPD) Recent Foreign Travel: No Contact w/Someone Who Travel: No Recent Infectious Disease Expo: No Recent Hopitalizations: Yes (HEART CATH AROUND ) (ALFREDO MORENO DO) Immunizations Up To Date Tetanus Booster (TDap): Less than 5yrs (ALFREDO MORENO DO) Seasonal Allergies Seasonal Allergies: No (ALFREDO MORENO DO) Past Medical History Surgeries: Yes (CARDIAC CATH 03/20/19-ANGIOPLASTY+ 2 STENTS TO RCA) Appendectomy, Cardiac, Coronary Stent Respiratory: No Cardiac: Yes (STEMI 03/20/19-ANGIOPLASTY + 2 STENTS TO RCA ) Coronary Artery Disease, Heart Attack, High Cholesterol Neurological: No Genitourinary: No Gastrointestinal: No Musculoskeletal: No Endocrine: No HEENT: No Cancer: No Psychosocial: Yes (POLYSUBSTANCE ABUSE) Anxiety Integumentary: No Blood Disorders: No (ALFREDO MORENO DO) Family Medical History Heart Disease (ALFREDO MORENO DO) Physical Exam Vital Signs Vital Signs - First Documented 08/04/19 05:34 Temp 36.6 Pulse 98 Resp 14 B/P (MAP) 132/82 (99) Pulse Ox 98 O2 Delivery Room Air (GISELLE HUGHES MD) Vital Signs Capillary Refill : Less Than 3 Seconds (ALFREDO MORENO DO) Height, Weight, BMI Height: '" Weight: lbs. oz. 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 Norm as Tested Skin: Normal Color, Warm/Dry, Tattoos/Piercings (EXTENSIVE TATTOOS) (ALFREDO MORENO DO) Procedures/Interventions Suture Size: 4-0 (ALFREDO MORENO DO) Progress/Results/Core Measures Results/Orders Lab Results Laboratory Tests Test 08/04/19 05:35 Range/Units White Blood Count 9.0 4.3-11.0 10^3/uL Red Blood Count 4.61 4.35-5.85 10^6/uL Hemoglobin 14.5 13.3-17.7 G/DL Hematocrit 41 40-54 % Mean Corpuscular Volume 89 80-99 FL Mean Corpuscular Hemoglobin 32 25-34 PG Mean Corpuscular Hemoglobin Concent 35 32-36 G/DL Red Cell Distribution Width 11.9 10.0-14.5 % Platelet Count 364 130-400 10^3/uL Mean Platelet Volume 9.3 7.4-10.4 FL Neutrophils (%) (Auto) 62 42-75 % Lymphocytes (%) (Auto) 24 12-44 % Monocytes (%) (Auto) 10 0-12 % Eosinophils (%) (Auto) 3 0-10 % Basophils (%) (Auto) 1 0-10 % Neutrophils # (Auto) 5.6 1.8-7.8 X 10^3 Lymphocytes # (Auto) 2.2 1.0-4.0 X 10^3 Monocytes # (Auto) 0.9 0.0-1.0 X 10^3 Eosinophils # (Auto) 0.3 0.0-0.3 10^3/uL Basophils # (Auto) 0.1 0.0-0.1 10^3/uL Prothrombin Time 12.6 12.2-14.7 SEC INR Comment 0.9 0.8-1.4 Activated Partial Thromboplast Time 29 24-35 SEC Sodium Level 138 135-145 MMOL/L Potassium Level 3.3 L 3.6-5.0 MMOL/L Chloride Level 103 98-107 MMOL/L Carbon Dioxide Level 23 21-32 MMOL/L Anion Gap 12 5-14 MMOL/L Blood Urea Nitrogen 8 7-18 MG/DL Creatinine 0.93 0.60-1.30 MG/DL Estimat Glomerular Filtration Rate > 60 BUN/Creatinine Ratio 9 Glucose Level 105 70-105 MG/DL Calcium Level 8.9 8.5-10.1 MG/DL Corrected Calcium 8.7 8.5-10.1 MG/DL Magnesium Level 2.1 1.6-2.4 MG/DL Total Bilirubin 0.4 0.1-1.0 MG/DL Aspartate Amino Transf (AST/SGOT) 18 5-34 U/L Alanine Aminotransferase (ALT/SGPT) 17 0-55 U/L Alkaline Phosphatase 80 40-136 U/L Total Creatine Kinase 207 H 30-200 U/L Creatine Kinase MB 2.1 <6.6 NG/ML Myoglobin 54.2 10.0-92.0 NG/ML Troponin I < 0.028 <0.028 NG/ML B-Type Natriuretic Peptide < 10.0 <100.0 PG/ML Total Protein 7.5 6.4-8.2 GM/DL Albumin 4.3 3.2-4.5 GM/DL Amylase Level 23 L 25-125 U/L Lipase 23 8-78 U/L Serum Alcohol < 10 <10 MG/DL (GISELLE HUGHES MD) My Orders Orders - GISELLE HUGHES MD Acetaminophen Tablet (Tylenol Tablet) (08/04/19 06:15) (GISELLE HUGHES MD) Medications Given in ED Current Medications Medications Dose Ordered Sig/Yaneli Route Start Time Stop Time Status Last Admin Dose Admin Acetaminophen 1,000 mg ONCE ONCE PO 08/04/19 06:15 08/04/19 06:16 DC 08/04/19 06:11 1,000 MG Aspirin 324 mg ONCE ONCE PO 08/04/19 05:30 08/04/19 05:31 DC 08/04/19 05:37 324 MG Nitroglycerin 0.4 mg UD PRN SL 08/04/19 05:45 08/04/19 06:13 DC 08/04/19 06:12 0.4 MG (GISELLE HUGHES MD) Vital Signs/I&O 08/04/19 08/04/19 08/04/19 05:34 05:37 05:49 Temp 36.6 Pulse 98 Resp 14 B/P (MAP) 132/82 (99) Pulse Ox 98 98 O2 Delivery Room Air Room Air Room Air (GISELLE HUGHES MD) Blood Pressure Mean: 99 Progress Progress Note : Progress Note 0600--CARE TURNED OVER TO DR. HUGHES. LAB PENDING (ALFREDO MORENO DO) Progress Note : Progress Note 0648: I have reexamined the patient and reviewed his labs, EKG and chest x-ray. No acute findings currently and he is now chest pain-free. We did talk about several options especially given his history of previous heart attack with stent placement. At a minimum I would like to at least repeat the labs. She does not want to stay any longer than right now. States that the pain is gone away and he just wants to go home and go to bed. I did review with him my concerns related to his history and he states he understands that. He wants to go ahead and leave and he knows that this will be AGAINST MEDICAL ADVICE. He is able to tell me the risk and benefits even prior to my asking for that and understands that this could result in his . He states he will come back if he gets pain again or has any concerns. Reports that he is taking his meds as directed. Heart is regular in rate and rhythm and lungs are clear to auscultation bilaterally. He is moving about without difficulty. Normal vital signs currently. He will sign the AGAINST MEDICAL ADVICE. Chest x-ray which showed questionable bibasilar infiltrates which I believe are from poor inspiration as he has no other indication of infection. Instructed return if he has problems breathing or is coughing or has fever. (GISELLE HUGHES MD) Initial ECG Impression Date: Aug 04, 2019 Initial ECG Impression Time: 05:34 Initial ECG Rate: 91 Initial ECG Rhythm: Normal Sinus (ALFREDO MORENO DO) Diagnostic Imaging Diagonstic Imaging: Xray Plain Films/CT/US/NM/MRI: chest Comments NAME: SABIGISELLE L [facility] REC#: [id number] PT STATUS: REG ER : 1985 PHYSICIAN: ALFREDO MORENO DO ADMIT DATE: 08/04/19/ER Draft Date of Exam:08/04/19 CHEST 1 VIEW, AP/PA ONLY INDICATION: Chest pain, congestion. COMPARISON: 05/11/2019. FINDINGS: Single view of the chest demonstrates questionable subtle infiltrates developing in both bases. This also could be secondary to poor inspiratory effort. There is no pneumothorax or effusion. The heart is normal. Osseous structures are age-appropriate. IMPRESSION: Questionable developing basilar infiltrates versus poor inspiratory effort. Follow-up recommended. Dictated on workstation # [id number] Dict: 08/04/19 0600 Trans: 08/04/19 0621 [id number] Interpreted by: ABRAHAM MOREAU Electronically signed by: (GISELLE HUGHES MD) Departure Impression Primary Impression: Chest pain Qualified Codes: R07.9 - Chest pain, unspecified Disposition: 07 AGAINST MEDICAL ADVICE Condition: Stable Departure-Patient Inst. Decision time for Depature: 06:48 (GISELLE HUGHES MD) Referrals: NO,LOCAL PHYSICIAN (PCP/Family) Primary Care Physician Patient Instructions: Chest Pain (DC) Add. Discharge Instructions: All discharge instructions reviewed with patient and/or family. Voiced understanding. You are leaving AGAINST MEDICAL ADVICE. I ask that you return for any concerns and especially for chest pain, breathing problems, fever, cough or other concerns as needed. Continue home medications as previously prescribed. Follow- up with your Dr. in one to 2 days for recheck. Work/School Note: Work Release Form Date Seen in the Emergency Department: Aug 04, 2019 Return to Work: Aug 05, 2019 Restrictions: No Restrictions ALFREDO MORENO DO Aug 04, 2019 06:11 GISELLE HUGHES MD Aug 04, 2019 06:53
[2019-08-04] MEDS ORDERED: ACETAMINOPHEN 500 MG TAB (TYLENOL) PO ONE (06:15)
[2019-08-04 06:18] LABS: CREATINE KINASE MB 2.1 NG/ML (<6.6)
--- NOTE | 2019-08-04 06:22 | Diagnostic Imaging Report ---
INDICATION: Chest pain, congestion. COMPARISON: 05/11/2019. FINDINGS: Single view of the chest demonstrates questionable subtle infiltrates developing in both bases. This also could be secondary to poor inspiratory effort. There is no pneumothorax or effusion. The heart is normal. Osseous structures are age-appropriate. IMPRESSION: Questionable developing basilar infiltrates versus poor inspiratory effort. Follow-up recommended. Dictated by: Dictated on workstation # [id number]
[2019-08-04 06:56] VITALS: BP 120/66
== END 2019-08-04 06:59 | disposition left against medical advice (07) ==
LOC: EDUNIT# 05:21 → ER 05:23
DX: R07.9 Chest pain, unspecified (principal); I25.2 Old myocardial infarction; Z95.5 Presence of coronary angioplasty implant and graft; F17.210 Nicotine dependence, cigarettes, uncomplicated; I25.10 Atherosclerotic heart disease of native coronary artery without angina pectoris; E78.00 Pure hypercholesterolemia, unspecified
CPT/HCPCS: 36415; 71045; 80053; 80320; 82150; 82550; 82553; 83690; 83735; 83874; 83880; 84484; 85025; 85610; 85730; 93005; 93041

== ENCOUNTER 2019-11-05 23:06 | Emergency (ER) | payer SELFPAY ==
[~2019-11-05] VITALS: Ht 187.9 cm; Wt 90.7 kg
[2019-11-05] MEDS ORDERED: LACTATED RINGERS 1,000 ML IV ONE (23:16)
--- NOTE | 2019-11-05 23:19 | ED Chest Pain ---
General Chief Complaint: Substance Abuse Stated Complaint: LATHARGIC Source: patient Exam Limitations: no limitations History of Present Illness Date Seen by Provider: Nov 05, 2019 Time Seen by Provider: 23:00 Initial Comments Patient [place] by [place] he was laying there unable to be awoken by police. EMS established a 20-gauge in his left before meals and said he did not speak to the much other than to say his name. Patient does volunteer history that he had a heart attack several months ago and is having some chest pain for the past couple hours. He says when he laid down on the street it was dark son had already gone down. He's not having any nausea fever chills cough shortness of breath. He rates pain as an 8 out of 10 but does not want anything for it. 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 He says he has been taking his medications but does not have them on him. He denies using recreational drugs or drinking alcohol. He says he quit drinking 6 months ago. He does still smoke about 2 packs cigarettes per day. He knows where he is at. He denies any trauma. No previous records to reference in the EMR. Allergies and Home Medications Allergies Coded Allergies: No Known Drug Allergies (Unverified , 11/05/19) Patient Home Medication List Home Medication List Reviewed: Yes Review of Systems Review of Systems Constitutional: No chills, No diaphoresis EENTM: No Blurred Vision, No Double Vision Respiratory: Denies Cough, Denies Shortness of Air Cardiovascular: See HPI, Chest Pain; Denies Edema, Denies Syncope Gastrointestinal: Denies Abdomen Distended, Denies Abdominal Pain Genitourinary: Denies Burning, Denies Drainage Musculoskeletal: No back pain, No joint pain Psychiatric/Neurological: Denies Anxiety, Denies Depressed All Other Systems Reviewed Negative Unless Noted: Yes Past Nfjiasl-Fwseko-Lhsswg Hx Patient Social History Alcohol Use: Past History (quit 6 months ago.) Alcohol Beverage of Choice: Beer Recreational Drug Use: No Drug of Choice: UDS Pos amphetamines/methamphetamines Smoking Status: Current Everyday Smoker Type Used: Cigarettes (2 packs per day) Physical Exam Vital Signs Vital Signs - First Documented 11/05/19 23:06 Temp 36.3 Pulse 75 Resp 16 B/P (MAP) 117/72 (87) O2 Delivery Room Air Capillary Refill : Height, Weight, BMI Height: '" Weight: lbs. oz. kg; BMI Method: General Appearance: WD/WN, Mild Distress, Thin HEENT: PERRL/EOMI, TMs Normal, Normal ENT Inspection; No Moist Mucous Membranes; Other (atraumatic head without Ricketts sign, raccoon eyes or hemotympanum) Neck: Full Range of Motion, Normal Inspection, Non Tender, Supple Respiratory: No Chest Non Tender (chest pain reproducible to direct palpation over the left chest); Lungs Clear, Normal Breath Sounds, No Accessory Muscle Use, No Respiratory Distress Cardiovascular: Regular Rate, Rhythm, No Edema, Normal Peripheral Pulses Gastrointestinal: Normal Bowel Sounds, Non Tender, Soft Extremity: Normal Capillary Refill, Normal Inspection, Normal Range of Motion, No Pedal Edema Neurologic/Psychiatric: Oriented x3, No Motor/Sensory Deficits, Other (GCS 14; somnolent) Skin: Normal Color, Warm/Dry Progress/Results/Core Measures Results/Orders Lab Results Laboratory Tests Test 11/05/19 23:10 11/06/19 03:09 11/06/19 03:10 Range/Units White Blood Count 8.9 4.3-11.0 10^3/uL Red Blood Count 4.51 4.35-5.85 10^6/uL Hemoglobin 14.0 13.3-17.7 G/DL Hematocrit 40 40-54 % Mean Corpuscular Volume 89 80-99 FL Mean Corpuscular Hemoglobin 31 25-34 PG Mean Corpuscular Hemoglobin Concent 35 32-36 G/DL Red Cell Distribution Width 12.0 10.0-14.5 % Platelet Count 297 130-400 10^3/uL Mean Platelet Volume 10.2 7.4-10.4 FL Neutrophils (%) (Auto) 64 42-75 % Lymphocytes (%) (Auto) 20 12-44 % Monocytes (%) (Auto) 9 0-12 % Eosinophils (%) (Auto) 5 0-10 % Basophils (%) (Auto) 1 0-10 % Neutrophils # (Auto) 5.7 1.8-7.8 X 10^3 Lymphocytes # (Auto) 1.8 1.0-4.0 X 10^3 Monocytes # (Auto) 0.8 0.0-1.0 X 10^3 Eosinophils # (Auto) 0.5 H 0.0-0.3 10^3/uL Basophils # (Auto) 0.1 0.0-0.1 10^3/uL Prothrombin Time 14.1 12.2-14.7 SEC INR Comment 1.1 0.8-1.4 Activated Partial Thromboplast Time 29 24-35 SEC Urine Color EVE H Urine Clarity SL CLOUDY Urine pH 5.0 5-9 Urine Specific [place] >=1.030 1.016-1.022 Urine Protein TRACE H NEGATIVE Urine Glucose (UA) NEGATIVE NEGATIVE Urine Ketones NEGATIVE NEGATIVE Urine Nitrite NEGATIVE NEGATIVE Urine Bilirubin 1+ H NEGATIVE Urine Urobilinogen 2.0 < = 1.0 MG/DL Urine Leukocyte Esterase NEGATIVE NEGATIVE Urine RBC (Auto) NEGATIVE NEGATIVE Urine RBC RARE /HPF Urine WBC RARE /HPF Urine Squamous Epithelial Cells RARE /HPF Urine Renal Epithelial Cells RARE /HPF Urine Crystals NONE /LPF Urine Bacteria NEGATIVE /HPF Urine Casts NONE /LPF Urine Mucus SMALL H /LPF Urine Culture Indicated NO Sodium Level 137 135-145 MMOL/L Potassium Level 3.8 3.6-5.0 MMOL/L Chloride Level 104 98-107 MMOL/L Carbon Dioxide Level 19 L 21-32 MMOL/L Anion Gap 14 5-14 MMOL/L Blood Urea Nitrogen 21 H 7-18 MG/DL Creatinine 1.04 0.60-1.30 MG/DL Estimat Glomerular Filtration Rate > 60 BUN/Creatinine Ratio 20 Glucose Level 76 70-105 MG/DL Calcium Level 8.5 8.5-10.1 MG/DL Corrected Calcium 8.6 8.5-10.1 MG/DL Magnesium Level 2.1 1.6-2.4 MG/DL Total Bilirubin 1.3 H 0.1-1.0 MG/DL Aspartate Amino Transf (AST/SGOT) 543 H 5-34 U/L Alanine Aminotransferase (ALT/SGPT) 828 H 0-55 U/L Alkaline Phosphatase 224 H 40-136 U/L Total Creatine Kinase 378 H 30-200 U/L Myoglobin 127.4 H 10.0-92.0 NG/ML Troponin I < 0.028 < 0.028 <0.028 NG/ML B-Type Natriuretic Peptide < 10.0 <100.0 PG/ML Total Protein 7.0 6.4-8.2 GM/DL Albumin 3.9 3.2-4.5 GM/DL Salicylates Level < 5.0 L 5.0-20.0 MG/DL Urine Opiates Screen NEGATIVE NEGATIVE Urine Oxycodone Screen NEGATIVE NEGATIVE Urine Methadone Screen NEGATIVE NEGATIVE Urine Propoxyphene Screen NEGATIVE NEGATIVE Acetaminophen Level < 10 L 10-30 UG/ML Urine Barbiturates Screen NEGATIVE NEGATIVE Ur Tricyclic Antidepressants Screen NEGATIVE NEGATIVE Urine Phencyclidine Screen NEGATIVE NEGATIVE Urine Amphetamines Screen POSITIVE H NEGATIVE Urine Methamphetamines Screen POSITIVE H NEGATIVE Urine Benzodiazepines Screen NEGATIVE NEGATIVE Urine Cocaine Screen NEGATIVE NEGATIVE Urine Cannabinoids Screen NEGATIVE NEGATIVE Serum Alcohol < 10 <10 MG/DL Triglycerides Level 33 <150 MG/DL Cholesterol Level 46 < 200 MG/DL LDL Cholesterol Direct 20 1-129 MG/DL VLDL Cholesterol 7 5-40 MG/DL HDL Cholesterol 20 L 40-60 MG/DL My Orders Orders - SIRI TORRES Cbc With Automated Diff (11/05/19 23:14) Magnesium (11/05/19 23:14) Ekg Tracing (11/05/19 23:14) Comprehensive Metabolic Panel (11/05/19 23:14) Myoglobin Serum (11/05/19 23:14) Protime With Inr (11/05/19 23:14) Partial Thromboplastin Time (11/05/19 23:14) O2 (11/05/19 23:14) Monitor-Rhythm Ecg Trace Only (11/05/19 23:14) Lipid Panel (11/06/19 06:00) Ed Iv/Invasive Line Start (11/05/19 23:14) Creatine Kinase (11/05/19 23:14) BNP (11/05/19 23:14) Troponin I (11/05/19 23:14) Aspirin Chewable Tablet (Baby Aspirin Ch (11/05/19 23:30) Ed Iv/Invasive Line Start (11/05/19 23:16) Lactated Ringers (Lr 1000 Ml Iv Solution (11/05/19 23:16) Lactated Ringers (Lr 1000 Ml Iv Solution (11/05/19 23:30) Ua Culture If Indicated (11/05/19 23:16) Alcohol (11/05/19 23:16) Drug Screen Stat (Urine) (11/05/19 23:16) Acetaminophen (11/05/19 23:16) Salicylate (11/05/19 23:16) Chest 1 View, Ap/Pa Only (11/06/19 00:01) Troponin I (11/06/19 03:00) Ns Iv 1000 Ml (Sodium Chloride 0.9%) (11/06/19 03:15) Medications Given in ED Current Medications Medications Dose Ordered Sig/Yaneli Route Start Time Stop Time Status Last Admin Dose Admin Aspirin 324 mg ONCE ONCE PO 11/05/19 23:30 11/05/19 23:31 DC 11/05/19 23:55 324 MG Lactated Ringer's 1,000 ml @ 0 mls/hr Q0M ONCE IV 11/05/19 23:16 11/05/19 23:18 DC 11/05/19 23:55 999 MLS/HR Vital Signs/I&O 11/05/19 23:06 Temp 36.3 Pulse 75 Resp 16 B/P (MAP) 117/72 (87) O2 Delivery Room Air Progress Progress Note #1: Time: 00:12 Progress Note Patient appears to have some dehydration injury related to likely his use of sti mulants or coming down off of them. He does not have an elevated troponin despite his reproducible chest pain. He did decline the aspirin after stating he would take it. Plan is to observe him, give him IV fluids and recheck a troponin and 3 hours. 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 Because his pain is reproducible with direct palpation the suspicion level is low at this being an [place]. Heart score is 1 point. The elevated transaminitis and bilirubin are likely related to hepatitis possibly obtained through his use of recreational drugs. He has a nontender abdomen so a biliary obstruction is fairly unlikely. Progress Note #2: Time: 03:09 Progress Note Patient is been resting quietly without concern. He does answer when spoken to. He has completed his 2 L and has not needed to urinate so we are starting normal saline at 200 mL an hour. Plan to observe him in the ER until closer to 6. Delta troponin will be drawn at 3:00. If his troponin is okay and he is feeling better we will let him go home and follow-up with his mine boss. Progress Note #3: Time: 05:26 Progress Note The patient has been resting comfortably. He does arouse and answer questions appropriately still. We have kept him IV fluids to help with his rhabdomyolysis and are going to allow him to discharge home with follow-up through his mine boss. Initial ECG Impression Date: Nov 05, 2019 Initial ECG Impression Time: 23:19 Initial ECG Rate: 76 Initial ECG Rhythm: Normal Sinus Initial ECG Intervals: Normal Initial ECG Impression: Normal Initial ECG Comparisson: No Previous ECG Available Comment Normal sinus rhythm without clinically relevant ST elevation or depression. Diagnostic Imaging Diagonstic Imaging: Xray Plain Films/CT/US/NM/MRI: chest Comments No acute cardiopulmonary processes noted on one view chest x-ray. Opacities consistent with piercings noted. Reviewed: Reviewed by Me Departure Impression Primary Impression: Rhabdomyolysis Qualified Codes: M62.82 - Rhabdomyolysis Additional Impressions: Methamphetamine abuse Chest pain Qualified Codes: R07.9 - Chest pain, unspecified Disposition: 01 HOME, SELF-CARE Condition: Improved Departure-Patient Inst. Decision time for Depature: 05:27 Referrals: UNKNOWN (PCP) Primary Care Physician Patient Instructions: ALCOHOL AND SUBSTANCE ABUSE, Drug Abuse and Drug Addiction (DC), Chest Pain, Rhabdomyolysis, Rhabdomyolysis (DC) Add. Discharge Instructions: You do not seem to be having a heart attack tonight however I do still suggest you follow-up with your mine boss either this week or early next week. Please call them for an appointment. Drink lots of fluids to help clear your rhabdomyolysis. If you begin to have chest pain again, shortness of breath or other worrisome symptoms please return to the nearest ER. Continue taking your medications as prescribed. If you want to get help beating your addiction to methamphetamines then I would suggest talking to the [facility] or [facility]. All discharge instructions reviewed with patient and/or family. Voiced understanding. SIRI TORRES Nov 05, 2019 23:18
[2019-11-05 23:22] LABS: CLARITY,URINE SL CLOUDY; COLOR,URINE AMBER; GLUCOSE, URINE (UA) NEGATIVE (NEGATIVE); KETONES,URINE NEGATIVE (NEGATIVE); LEUKOCYTE ESTERASE ,URINE NEGATIVE (NEGATIVE); NITRITE,URINE NEGATIVE (NEGATIVE); PROTEIN,URINE TRACE (NEGATIVE)
[2019-11-05 23:23] LABS: BASOPHILS # (AUTO) 0.1 10^3/uL (0.0-0.1); BASOPHILS % (AUTO) 1 % (0-10); EOSINOPHILS # (AUTO) 0.5 10^3/uL (0.0-0.3); EOSINOPHILS % (AUTO) 5 % (0-10); HEMATOCRIT 40 % (40-54); LYMPHOCYTES # (AUTO) 1.8 X 10^3 (1.0-4.0); LYMPHOCYTES % (AUTO) 20 % (12-44); MEAN CORPUSCULAR HEMOGLOBIN 31 PG (25-34); MEAN CORPUSCULAR HGB CONC 35 G/DL (32-36); MEAN CORPUSCULAR VOLUME 89 FL (80-99); MEAN PLATELET VOLUME 10.2 FL (7.4-10.4); MONOCYTES # (AUTO) 0.8 X 10^3 (0.0-1.0); MONOCYTES % (AUTO) 9 % (0-12); NEUTROPHILS # (AUTO) 5.7 X 10^3 (1.8-7.8); NEUTROPHILS % (AUTO) 64 % (42-75); PLATELET COUNT 297 10^3/uL (130-400); WHITE BLOOD COUNT 8.9 10^3/uL (4.3-11.0)
[2019-11-05 23:30] LABS: BACTERIA,URINE NEGATIVE /HPF; RBC,URINE RARE /HPF; RENAL EPITHELIAL CELLS,URINE RARE /HPF; SQUAMOUS EPITHELIAL CELL,UR RARE /HPF; WBC,URINE RARE /HPF
[2019-11-05] MEDS ORDERED: ASPIRIN 81 MG CHEW (CHILDREN'S ASA) PO ONE (23:30)
[2019-11-05] MEDS ORDERED: LACTATED RINGERS 1,000 ML IV SCH (23:30)
--- NOTE | 2019-11-05 23:30 | NUR ---
Note undone in [facility] - 11/06/19 at 0532 by BAMCLEOD PT BACK FROM ENDO AND REPORT FROM ENDO RN. PT PLACED BACK ON BEDSIDE MONITOR. Addendum: 11/06/19 at 0002 by BAMELIZAOD Amendment undone in [facility] - 11/06/19 at 0532 by BAMCLEOD PT AWAKE, ALERT, ORIENTED. DENIES COMPLAINTS OR CONCERNS AT THIS TIME.
[2019-11-05 23:32] LABS: INR 1.1 (0.8-1.4); PROTHROMBIN TIME PATIENT 14.1 SEC (12.2-14.7)
[2019-11-05 23:33] LABS: ALBUMIN 3.9 GM/DL (3.2-4.5); CHLORIDE 104 MMOL/L (98-107); POTASSIUM 3.8 MMOL/L (3.6-5.0); SODIUM 137 MMOL/L (135-145)
[2019-11-05 23:34] LABS: CALCIUM 8.5 MG/DL (8.5-10.1)
[2019-11-05 23:35] LABS: GLUCOSE 76 MG/DL (70-105)
[2019-11-05 23:36] LABS: AMPHETAMINE SCREEN, URINE POSITIVE (NEGATIVE); BARBITURATE SCREEN URINE NEGATIVE (NEGATIVE); BENZODIAZEPINES SCREEN URINE NEGATIVE (NEGATIVE); CANNABINOID SCREEN, URINE NEGATIVE (NEGATIVE); COCAINE SCREEN URINE NEGATIVE (NEGATIVE); METHADONE STAT NEGATIVE (NEGATIVE); METHAMPHETAMINE SCREEN URINE S POSITIVE (NEGATIVE); OPIATE SCREEN URINE NEGATIVE (NEGATIVE); OXYCODONE STAT NEGATIVE (NEGATIVE); PROPOXYPHENE STAT NEGATIVE (NEGATIVE); TRICYCLIC ANTIDEPRESSANTS SCRE NEGATIVE (NEGATIVE)
[2019-11-05 23:37] LABS: BILIRUBIN,TOTAL 1.3 MG/DL (0.1-1.0); CARBON DIOXIDE 19 MMOL/L (21-32)
[2019-11-05 23:39] LABS: ALKALINE PHOSPHATASE 224 U/L (40-136); CREATININE SERUM 1.04 MG/DL (0.60-1.30); GFR ESTIMATED > 60
[2019-11-05 23:40] LABS: BUN/CREATININE RATIO 20
--- NOTE | 2019-11-05 23:40 | NUR ---
Sergio love in [facility] - 11/06/19 at 0532 by WINSOME CALLED FOR PT RIDE AND LEFT MESSAGE.
[2019-11-05 23:42] LABS: ALANINE AMINOTRANSFERASE 828 U/L (0-55); MAGNESIUM 2.1 MG/DL (1.6-2.4)
[2019-11-05 23:43] LABS: ACETAMINOPHEN < 10 UG/ML (10-30); CREATINE KINASE 378 U/L (30-200); SALICYLATE < 5.0 MG/DL (5.0-20.0)
--- NOTE | 2019-11-05 23:55 | NUR ---
Sergio love in [facility] - 11/06/19 at 0532 by WINSOME PT PATY CALLED TO SAY HE WOULD BE ON THE WAY TO TAKE PT HOME.
[2019-11-06 01:09] LABS: BILIRUBIN,URINE 1+ (NEGATIVE)
[2019-11-06] MEDS ORDERED: NS IV 1000 ML 1,000 ML IV SCH (03:15)
[2019-11-06 03:27] LABS: TRIGLYCERIDES 33 MG/DL (<150); VLDL CHOLESTEROL 7 MG/DL (5-40)
[2019-11-06 03:32] LABS: CHOLESTEROL 46 MG/DL (< 200)
[2019-11-06 03:33] LABS: HDL CHOLESTEROL 20 MG/DL (40-60)
[2019-11-06 05:46] VITALS: BP 120/80
--- NOTE | 2019-11-06 08:15 | Diagnostic Imaging Report ---
INDICATION: Altered mental status. Unresponsive patient COMPARISON: 08/04/2019 FINDINGS: Single frontal view of the chest demonstrates normal heart size and pulmonary vascularity. The lungs are well aerated and clear. No large pleural effusion or pneumothorax is seen. The visualized osseous structures show no acute abnormalities. IMPRESSION: 1. No acute cardiopulmonary process. Dictated by: Dictated on workstation # [id number]
== END 2019-11-06 05:46 | disposition home or self-care (01) ==
LOC: ER 23:08 → MERGE 23:08 → EDBD 23:08 → ER 11-06 05:46
DX: M62.82 Rhabdomyolysis (principal); F15.10 Other stimulant abuse, uncomplicated; R07.9 Chest pain, unspecified; F17.210 Nicotine dependence, cigarettes, uncomplicated
CPT/HCPCS: 71045; 80053; 80061; 80306; 81000; 82550; 83735; 83874; 83880; 84484 ×2; 85025; 85610; 85730; 93005; 93041; 99284; G0480 ×3; 36415; 80320; 80329

== ENCOUNTER 2019-12-22 14:26 | Emergency (ER) | payer SELFPAY ==
[~2019-12-22] VITALS: Ht 182.9 cm; Wt 83.9 kg
--- NOTE | 2019-12-22 14:33 | ED Chest Pain ---
General Stated Complaint: CP;SOA Source: patient Exam Limitations: no limitations History of Present Illness Date Seen by Provider: Dec 22, 2019 Time Seen by Provider: 14:30 Initial Comments To ER by [facility]. He complained of chest pain and shortness of breath while riding his bicycle from [facility] to here when this chest pain started 45 minutes ago. He called 911 and his chest pain resolved upon getting into the ambulance and requesting that they drive him to [place]. He is now symptom- free. 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 History of methamphetamine use. He also states that he hasn't missed a single dose of his Plavix or aspirin. He hasn't used any methamphetamine for several months. Timing/Duration: 1 hour Severity/Quality: moderate Location: central Radiation: no radiation ASA po CLAIM REP: No NTG SL CLAIM REP: No Associated Symptoms: shortness of breath Allergies and Home Medications Allergies Coded Allergies: No Known Drug Allergies (Unverified , 01/09/19) Home Medications Aspirin 81 Mg Tab.chew, 81 MG PO DAILY Prescribed by: MAREN PARR on 03/21/19 1158 Atorvastatin Calcium 80 Mg Tablet, 80 MG PO HS Prescribed by: MAREN PARR on 03/21/19 115 Cefadroxil 500 Mg Capsule, 500 MG PO BID Prescribed by: DANELLE CLARK on 03/24/191944 Clopidogrel Bisulfate 75 Mg Tablet, 75 MG PO DAILY Prescribed by: MAREN PARR on 03/21/19 1158 Lisinopril 5 Mg Tablet, 5 MG PO DAILY Prescribed by: MAERN PARR on 03/21/19 115 Metoprolol Succinate 50 Mg Tab.er.24h, 50 MG PO DAILY Prescribed by: MAREN PARR on 03/21/19 115 Tramadol HCl 50 Mg Tablet, 50 MG PO Q6H PRN for PAIN Prescribed by: DANELLE CLARK on 03/24/191944 Patient Home Medication List Home Medication List Reviewed: Yes Review of Systems Review of Systems Constitutional: see HPI; No diaphoresis EENTM: No Symptoms Reported Respiratory: No Symptoms Reported Cardiovascular: See HPI, Chest Pain Gastrointestinal: See HPI; Denies Abdominal Pain, Denies Nausea, Denies Vomiting Genitourinary: No Symptoms Reported Musculoskeletal: no symptoms reported Skin: no symptoms reported Psychiatric/Neurological: No Symptoms Reported Endocrine: No Symptoms Reported Past Dapvafr-Msejxp-Qrdrpy Hx Patient Social History Alcohol Beverage of Choice: Beer Drug of Choice: UDS Pos amphetamines/methamphetamines Type Used: Cigarettes Recent Hopitalizations: No Immunizations Up To Date Tetanus Booster (TDap): Less than 5yrs Seasonal Allergies Seasonal Allergies: No Past Medical History Surgeries: No Appendectomy, Cardiac, Coronary Stent Respiratory: No Cardiac: Yes Heart Attack Neurological: No Genitourinary: No Gastrointestinal: No Musculoskeletal: No Endocrine: No HEENT: No Cancer: No Psychosocial: No Anxiety Integumentary: No Blood Disorders: No Family Medical History Heart Disease Physical Exam Vital Signs Capillary Refill : Height, Weight, BMI Height: '" Weight: lbs. oz. kg; 25.00 BMI Method: General Appearance: No Apparent Distress, WD/WN (alert and oriented. EKG is normal without any sign of acute ischemia. Heart rate is 83 sinus. 132/76 blood pressure. He did receive 324 mg of aspirin in route. Oxygen 100% room air. Respiratory rate is 18.) HEENT: PERRL/EOMI, TMs Normal Respiratory: Normal Breath Sounds, No Accessory Muscle Use, No Respiratory Distress Cardiovascular: Regular Rate, Rhythm, Normal Peripheral Pulses Gastrointestinal: Non Tender, Soft Extremity: Normal Capillary Refill, Normal Inspection Neurologic/Psychiatric: Alert Skin: Normal Color, Warm/Dry Procedures/Interventions Suture Size: 4-0 Departure Communication (Admissions) 1437-ambulance hasn't even left the [place] and patient has decided he would like to sign out against advice now that he is arrived in [place]. It was seen that he just needed a ride to [place] as he does not want any workup done. Impression Primary Impression: History of chest pain Additional Impression: Manipulative behavior Disposition: 07 AGAINST MEDICAL ADVICE Condition: Against Medical Advice (ERASED) Departure-Patient Inst. Referrals: NO,LOCAL PHYSICIAN (PCP/Family) Primary Care Physician EDITH WOOTEN APRN Dec 22, 2019 14:32
[2019-12-22 14:35] VITALS: BP 132/78
[2019-12-22 15:06] LABS: AMPHETAMINE SCREEN, URINE POSITIVE (NEGATIVE); BARBITURATE SCREEN URINE NEGATIVE (NEGATIVE); BENZODIAZEPINES SCREEN URINE NEGATIVE (NEGATIVE); CANNABINOID SCREEN, URINE NEGATIVE (NEGATIVE); COCAINE SCREEN URINE NEGATIVE (NEGATIVE); METHADONE STAT NEGATIVE (NEGATIVE); METHAMPHETAMINE SCREEN URINE S POSITIVE (NEGATIVE); OPIATE SCREEN URINE NEGATIVE (NEGATIVE); OXYCODONE STAT NEGATIVE (NEGATIVE); PROPOXYPHENE STAT NEGATIVE (NEGATIVE); TRICYCLIC ANTIDEPRESSANTS SCRE NEGATIVE (NEGATIVE)
== END 2019-12-22 14:39 | disposition left against medical advice (07) ==
LOC: EDUNIT# 14:26 → ER 14:27
DX: R07.9 Chest pain, unspecified (principal); R46.89 Other symptoms and signs involving appearance and behavior; Z95.5 Presence of coronary angioplasty implant and graft; Z79.82 Long term (current) use of aspirin; Z82.49 Family history of ischemic heart disease and other diseases of the circulatory system
CPT/HCPCS: 80306; 99285

== ENCOUNTER 2020-02-03 05:39 | Emergency (ER) | payer SELFPAY ==
[~2020-02-03] VITALS: Ht 187 cm; Wt 85.0 kg
[2020-02-03] MEDS ORDERED: LACTATED RINGERS 0 ML IV ONE (05:45)
--- NOTE | 2020-02-03 05:55 | NUR ---
Pt arrives by EMS with c/o cp, sob, cough, COREA, and fever with onset of yesterday. Pt does not recall when he last took Tylenol. Pt is moaning and writhing on the bed, holding his head. Pt not tolerating pt cares well. 2nd IV started, labs drawn, swabs obtained.
[2020-02-03] MEDS ORDERED: LACTATED RINGERS 1,000 ML IV ONE ×3 (05:59→06:30)
[2020-02-03] MEDS ORDERED: KETOROLAC 30 MG/ML VIAL IVP ONE (06:00)
[2020-02-03] MEDS ORDERED: ACETAMINOPHEN 500 MG TAB (TYLENOL) PO ONE (06:00)
[2020-02-03] MEDS ORDERED: ASPIRIN 81 MG CHEW (CHILDREN'S ASA) PO ONE (06:00)
[2020-02-03 06:18] LABS: BASOPHILS % (AUTO) 0 % (0-10); EOSINOPHILS % (AUTO) 0 % (0-10); HEMATOCRIT 41 % (40-54); HEMOGLOBIN 14.6 g/dL (13.3-17.7); LYMPHOCYTES # (AUTO) 0.8 10^3/uL (1.0-4.0); LYMPHOCYTES % (AUTO) 4 % (12-44); MEAN CORPUSCULAR HEMOGLOBIN 32 pg (25-34); MEAN CORPUSCULAR HGB CONC 35 g/dL (32-36); MEAN CORPUSCULAR VOLUME 90 fL (80-99); MEAN PLATELET VOLUME 9.6 fL (9.0-12.2); MONOCYTES # (AUTO) 1.7 10^3/uL (0.0-1.0); MONOCYTES % (AUTO) 8 % (0-12); NEUTROPHILS # (AUTO) 17.6 10^3/uL (1.8-7.8); NEUTROPHILS % (AUTO) 86 % (42-75); PLATELET COUNT 191 10^3/uL (130-400); WHITE BLOOD COUNT 20.5 10^3/uL (4.3-11.0)
[2020-02-03 06:19] LABS: ALBUMIN 3.5 GM/DL (3.2-4.5); CHLORIDE 97 MMOL/L (98-107); SODIUM 128 MMOL/L (135-145)
[2020-02-03 06:20] LABS: CALCIUM 8.5 MG/DL (8.5-10.1)
[2020-02-03 06:21] LABS: GLUCOSE 128 MG/DL (70-105)
[2020-02-03 06:22] LABS: TOTAL PROTEIN 6.8 GM/DL (6.4-8.2)
[2020-02-03 06:23] LABS: BILIRUBIN,TOTAL 0.8 MG/DL (0.1-1.0); CARBON DIOXIDE 22 MMOL/L (21-32)
--- NOTE | 2020-02-03 06:24 | ED Chest Pain ---
General Chief Complaint: Chest Pain Stated Complaint: CP Source: patient Exam Limitations: no limitations History of Present Illness Date Seen by Provider: Feb 03, 2020 Time Seen by Provider: 05:55 Initial Comments Patient presents ER by EMS from home with chief complaint that since yesterday morning he started having nausea vomiting diarrhea cold chills body aches and has been using aspirin and Tylenol. He says it hurts on the left side of his chest when he takes a deep breath in. Patient also says he becomes lightheaded whenever he stands up today. He does have a history of coronary disease with a stent placed in 2019, [address] Singh. He does not follow-up with cardiology or primary care doctor. He does not take any of his medications prescribed to him secondary to cost but he says he does still take aspirin daily. He says he took 2 aspirin this morning. EMS gave him a dose of Zofran and since he arrived in the ER the prior provider has provided him with more Zofran, fluids, 2 more 81 mg tablets of aspirin, Toradol. He has initiated a cardiac work-up for his chest pain however it sounds more pleuritic. He has also ordered COVID-19 and influenza swabs. The patient denies any loss of sense of taste or smell. He is having no dysuria. Allergies and Home Medications Allergies Coded Allergies: No Known Drug Allergies (Unverified , 01/09/19) Home Medications Aspirin 81 Mg Tab.chew, 81 MG PO DAILY Prescribed by: MAREN PARR on 03/21/19 115 Atorvastatin Calcium 80 Mg Tablet, 80 MG PO HS Prescribed by: MAREN PARR on 03/21/19 115 Azithromycin 250 Mg Tablet, 250 MG PO DAILY Prescribed by: SIRI TORRES on 02/03/2034 Benzonatate 100 Mg Capsule, 100 MG PO Q6H PRN for COUGH Prescribed by: SIRI TORRES on 02/03/2034 Cefadroxil 500 Mg Capsule, 500 MG PO BID Prescribed by: DANELLE CLARK on 03/24/191944 Cefdinir 300 Mg Capsule, 300 MG PO BID Prescribed by: SIRI TORRES on 02/03/2034 Clopidogrel Bisulfate 75 Mg Tablet, 75 MG PO DAILY Prescribed by: MAREN PARR on 03/21/19 115 Lisinopril 5 Mg Tablet, 5 MG PO DAILY Prescribed by: MAREN PARR on 03/21/19 1158 Metoprolol Succinate 50 Mg Tab.er.24h, 50 MG PO DAILY Prescribed by: MAREN PARR on 03/21/19 1158 Ondansetron 4 Mg Tab.rapdis, 4 MG PO Q6H PRN for NAUSEA/VOMITING Prescribed by: SIRI TORRES on 02/03/20 0734 Tramadol HCl 50 Mg Tablet, 50 MG PO Q6H PRN for PAIN Prescribed by: DANELLE CLARK on 03/24/19 194 Patient Home Medication List Home Medication List Reviewed: Yes Review of Systems Review of Systems Constitutional: chills, diaphoresis, fever, malaise EENTM: No Blurred Vision, No Double Vision Respiratory: Cough; Denies Orthopnea; Shortness of Air Cardiovascular: See HPI, Chest Pain; Denies Palpitations, Denies Syncope Gastrointestinal: See HPI; Denies Abdominal Pain, Denies Constipated; Diarrhea, Nausea, Vomiting Genitourinary: Denies Burning, Denies Discharge Musculoskeletal: No back pain, No joint pain All Other Systems Reviewed Negative Unless Noted: Yes Past Ujjcsvq-Eubwua-Fscerc Hx Patient Social History Alcohol Beverage of Choice: Beer Recreational Drug Use: Yes Drug of Choice: UDS Pos amphetamines/methamphetamines Smoking Status: Current Everyday Smoker Type Used: Cigarettes (2 ppd) 2nd Hand Smoke Exposure: Yes Recent Hopitalizations: No Immunizations Up To Date Tetanus Booster (TDap): Less than 5yrs Seasonal Allergies Seasonal Allergies: No Past Medical History Surgeries: Yes (CARDIAC STENT X2) Appendectomy, Cardiac, Coronary Stent Respiratory: No Cardiac: Yes Heart Attack Neurological: No Genitourinary: No Gastrointestinal: No Musculoskeletal: No Endocrine: No HEENT: No Cancer: No Psychosocial: No Anxiety Integumentary: No Blood Disorders: No Family Medical History Heart Disease Physical Exam Vital Signs Vital Signs - First Documented Capillary Refill : Height, Weight, BMI Height: '" Weight: lbs. oz. kg; 25.00 BMI Method: General Appearance: WD/WN, Anxious, Moderate Distress (Tachycardia and tachypnea) HEENT: PERRL/EOMI; No Pharynx Normal, No Moist Mucous Membranes Neck: Full Range of Motion, Normal Inspection Respiratory: No Chest Non Tender (Left-sided chest mildly tender to palpation. ); Lungs Clear, Normal Breath Sounds, No Accessory Muscle Use, Respiratory Distress (Mild increased work of breathing.); No Wheezing Cardiovascular: Regular Rate, Rhythm, Normal Peripheral Pulses Gastrointestinal: Non Tender, Soft Neurologic/Psychiatric: Alert, Oriented x3 Skin: Normal Color, Warm/Dry Focused Exam Lactate Level 02/03/20 05:50: Lactic Acid Level 1.36 Lactic Acid Level Laboratory Tests Test 02/03/20 05:50 Lactic Acid Level 1.36 MMOL/L (0.50-2.00) Procedures/Interventions Suture Size: 4-0 Progress/Results/Core Measures Results/Orders Lab Results Laboratory Tests Test 02/03/20 05:50 02/03/20 05:55 Range/Units White Blood Count 20.5 H 4.3-11.0 10^3/uL Red Blood Count 4.59 4.30-5.52 10^6/uL Hemoglobin 14.6 13.3-17.7 g/dL Hematocrit 41 40-54 % Mean Corpuscular Volume 90 80-99 fL Mean Corpuscular Hemoglobin 32 25-34 pg Mean Corpuscular Hemoglobin Concent 35 32-36 g/dL Red Cell Distribution Width 11.7 10.0-14.5 % Platelet Count 191 130-400 10^3/uL Mean Platelet Volume 9.6 9.0-12.2 fL Immature Granulocyte % (Auto) 2 % Neutrophils (%) (Auto) 86 H 42-75 % Lymphocytes (%) (Auto) 4 L 12-44 % Monocytes (%) (Auto) 8 0-12 % Eosinophils (%) (Auto) 0 0-10 % Basophils (%) (Auto) 0 0-10 % Neutrophils # (Auto) 17.6 H 1.8-7.8 10^3/uL Lymphocytes # (Auto) 0.8 L 1.0-4.0 10^3/uL Monocytes # (Auto) 1.7 H 0.0-1.0 10^3/uL Eosinophils # (Auto) 0.0 0.0-0.3 10^3/uL Basophils # (Auto) 0.0 0.0-0.1 10^3/uL Immature Granulocyte # (Auto) 0.3 H 0.0-0.1 10^3/uL Neutrophils % (Manual) 85 % Lymphocytes % (Manual) 4 % Monocytes % (Manual) 7 % Eosinophils % (Manual) 0 % Basophils % (Manual) 0 % Band Neutrophils 4 % Blood Morphology Comment NORMAL Prothrombin Time 13.8 12.2-14.7 SEC INR Comment 1.0 0.8-1.4 Activated Partial Thromboplast Time 27 24-35 SEC D-Dimer 0.35 0.00-0.49 UG/ML Sodium Level 128 L 135-145 MMOL/L Potassium Level 4.0 3.6-5.0 MMOL/L Chloride Level 97 L 98-107 MMOL/L Carbon Dioxide Level 22 21-32 MMOL/L Anion Gap 9 5-14 MMOL/L Blood Urea Nitrogen 8 7-18 MG/DL Creatinine 0.80 0.60-1.30 MG/DL Estimat Glomerular Filtration Rate > 60 BUN/Creatinine Ratio 10 Glucose Level 128 H 70-105 MG/DL Lactic Acid Level 1.36 0.50-2.00 MMOL/L Calcium Level 8.5 8.5-10.1 MG/DL Corrected Calcium 8.9 8.5-10.1 MG/DL Magnesium Level 1.2 L 1.6-2.4 MG/DL Total Bilirubin 0.8 0.1-1.0 MG/DL Aspartate Amino Transf (AST/SGOT) 34 5-34 U/L Alanine Aminotransferase (ALT/SGPT) 75 H 0-55 U/L Alkaline Phosphatase 108 40-136 U/L Lactate Dehydrogenase 223 H 125-220 U/L Total Creatine Kinase 79 30-200 U/L Myoglobin 27.8 10.0-92.0 NG/ML Troponin I < 0.028 <0.028 NG/ML C-Reactive Protein High Sensitivity 5.85 H 0.00-0.50 MG/DL B-Type Natriuretic Peptide < 10.0 <100.0 PG/ML Total Protein 6.8 6.4-8.2 GM/DL Albumin 3.5 3.2-4.5 GM/DL Procalcitonin 0.29 H <0.10 NG/ML Coronavirus 2019 (JOSUE) Negative Negative Micro Results Microbiology 02/03/20 Influenza Types A,B Antigen (GRACIA) - Final, Complete My Orders Orders - SIRI TORRES Lactated Ringers (Lr 1000 Ml Iv Solution (02/03/20 06:30) Promethazine Injection (Phenergan Injec (02/03/20 06:30) Ceftriaxone For Iv Use (Rocephin For I (02/03/20 06:45) Azithromycin Injection (Zithromax Inject (02/03/20 06:45) Medications Given in ED Current Medications Medications Dose Ordered Sig/Yaneli Route Start Time Stop Time Status Last Admin Dose Admin Acetaminophen 1,000 mg ONCE ONCE PO 02/03/20 06:00 02/03/20 06:01 DC 02/03/20 06:08 1,000 MG Aspirin 162 mg ONCE ONCE PO 02/03/20 06:00 02/03/20 06:01 DC 02/03/20 06:08 162 MG Azithromycin 500 mg/Sodium Chloride 250 ml @ 250 mls/hr ONCE ONCE IV 02/03/20 06:45 02/03/20 07:44 DC 02/03/20 07:08 250 MLS/HR Ceftriaxone Sodium 1000 mg/ Sterile Water 10 ml @ 200 mls/hr ONCE ONCE IV 02/03/20 06:45 02/03/20 06:47 MN 02/03/20 06:59 200 MLS/HR Ketorolac Tromethamine 15 mg ONCE ONCE IVP 02/03/20 06:00 02/03/20 06:01 DC 02/03/20 06:07 15 MG Lactated Ringer's 0 ml @ ud STK-MED ONCE IV 02/03/20 05:45 02/03/20 05:50 MN 02/03/20 06:10 1,000 MLS/HR Lactated Ringer's 1,000 ml @ ud STK-MED ONCE IV 02/03/20 05:59 02/03/20 06:05 MN 02/03/20 05:55 1,000 MLS/HR Promethazine HCl 25 mg ONCE ONCE IVP 02/03/20 06:30 02/03/20 06:31 DC 02/03/20 07:03 25 MG Vital Signs/I&O 02/03/20 02/03/20 02/03/20 02/03/20 05:45 05:45 05:45 06:44 Temp 38.9 Pulse 124 118 Resp 24 24 B/P (MAP) 139/75 (96) 139/75 Pulse Ox 100 98 O2 Delivery Nasal Cannula Nasal Cannula Nasal Cannula O2 Flow Rate 2.00 2.00 2.00 02/03/20 07:25 Temp 37.6 Pulse 111 B/P (MAP) 128/88 O2 Flow Rate 2.00 Progress Progress Note #1: Time: 06:35 Progress Note Suspect the patient has a viral illness and pleuritic chest pain. Just the same he has been given some aspirin and will get some troponins as well as a CK since he has a history of methamphetamine use. This tachycardia might be compounded by this so we will obtain a drug screen to help clarify. Since he says he is dizzy when he stands up I suspect he is orthostatic and we discussed a give him 2 L of fluids. After the Zofran he still says he has some mild nausea s as well as headache so in addition to the Tylenol, Toradol were going to give him some Phenergan. Flu B is positive. White count of 20,000. COVID-19 is pending. Chest x-ray shows a left lower lobe infiltrate. Plan to cover him with appropriate antibiotics, Rocephin and azithromycin. Progress Note #2: Time: 08:39 Progress Note The patient is afebrile, much more comfortable no longer nauseated and not having any diarrhea presently. He has influenza and probably a pneumonia. We have given him IV antibiotics and when they finish in his IV fluids are finished he can go home. He is okay with this plan. He is not requiring any supplemental oxygen and maintaining oxygen sats in the upper 90s on room air. We've given good return precautions as well as some medications to support his symptoms. Initial ECG Impression Date: Feb 03, 2020 Initial ECG Impression Time: 05:41 Initial ECG Rate: 118 Initial ECG Rhythm: S.Tach Initial ECG Intervals: Normal Initial ECG Impression: Normal Comment Sinus tachycardia without any clinically relevant ST elevation or depression. Diagnostic Imaging Diagonstic Imaging: Xray Plain Films/CT/US/NM/MRI: chest Comments Appears to be a left lower lobe consolidation. NAME: GISELLE CELESTIN [facility] REC#: [id number] PT STATUS: REG ER : 1985 PHYSICIAN: CONSTANCE ANN MD ADMIT DATE: 02/03/20/ER Draft Date of Exam:02/03/20 CHEST 1 VIEW, AP/PA ONLY EXAMINATION: Chest 1 view HISTORY: Chest pain. Fever and cough. COMPARISON: Chest radiograph on 11/06/2019. FINDINGS: Consolidative patchy opacities are seen in the left lung base and bilateral perihilar regions. No large pleural effusion or pneumothorax. The cardiac silhouette is unremarkable. No acute osseous abnormalities. IMPRESSION: 1. Patchy consolidative opacities in the bilateral perihilar regions and left lung base, concerning for pneumonia. No pleural effusion. Dictated on workstation # [id number] Dict: 02/03/20 0658 Trans: 02/03/20 0725 [facility] [id number] Interpreted by: RAKEL VILLEGAS DO Electronically signed by: Reviewed: Reviewed by Me Departure Impression Primary Impression: Influenza B Additional Impression: Pneumonia Qualified Codes: J18.9 - Pneumonia, unspecified organism Disposition: HOME, SELF-CARE Condition: Improved Departure-Patient Inst. Decision time for Depature: 08:10 Referrals: NO,LOCAL PHYSICIAN (PCP/Family) Primary Care Physician Patient Instructions: Pneumonia, Adult (DC), Flu Add. Discharge Instructions: Cefdinir 1 tablet twice a day for the next 10 days. Azithromycin 1 tablet a day starting tomorrow for the next 4 days. Tamiflu one capsule twice a day for 5 days. Ondansetron one tablet every 6 hours as necessary for nausea under the tongue. Tylenol 1000 mg every 8 hours as necessary for body aches, headaches or fever. Ibuprofen 800 mg every 8 hours as necessary for body aches, headaches, fever. Tessalon Perles 1 capsule every 6 hours as necessary for cough. Return to the nearest ER if your symptoms worsen and you're unable to catch your breath. All discharge instructions reviewed with patient and/or family. Voiced understanding. Scripts Oseltamivir Phosphate (Tamiflu) 75 Mg Cap 75 MG PO BID for 5 Days, #10 CAP 0 Refills Prov: SIRI TORRES 02/03/20 Benzonatate (TESSALON PERLES) 100 Mg Capsule 100 MG PO Q6H PRN for COUGH, #30 CAP 0 Refills Prov: SIRI TORRES 02/03/20 Ondansetron (Ondansetron Odt) 4 Mg Tab.rapdis 4 MG PO Q6H PRN for NAUSEA/VOMITING, #8 TAB 0 Refills Prov: SIRI TORRES 02/03/20 Azithromycin (Azithromycin) 250 Mg Tablet 250 MG PO DAILY, #4 TAB 0 Refills Prov: SIRI TORRES 02/03/20 Cefdinir (Cefdinir) 300 Mg Capsule 300 MG PO BID for 10 Days, #20 CAP 0 Refills Prov: SIRI TORRES 02/03/20 Work/School Note: Work Release Form Date Seen in the Emergency Department: Feb 03, 2020 Return to Work: Feb 10, 2020 Restrictions: No Restrictions SIRI TORRES Feb 03, 2020 06:24
[2020-02-03 06:25] LABS: ALKALINE PHOSPHATASE 108 U/L (40-136); GFR ESTIMATED > 60
[2020-02-03 06:26] LABS: BUN/CREATININE RATIO 10
[2020-02-03 06:28] LABS: ALANINE AMINOTRANSFERASE 75 U/L (0-55); MAGNESIUM 1.2 MG/DL (1.6-2.4)
[2020-02-03] MEDS ORDERED: PROMETHAZINE INJ 25 MG/ML (PHENERGAN) AMP IVP ONE (06:30)
[2020-02-03 06:38] LABS: FIBRIN DEGRADATION PRODUCTS 0.35 UG/ML (0.00-0.49); PROTHROMBIN TIME PATIENT 13.8 SEC (12.2-14.7)
[2020-02-03 06:43] LABS: CREATINE KINASE 79 U/L (30-200)
[2020-02-03] MEDS ORDERED: cefTRIAXone FOR IV USE 1,000 MG in WATER (STERILE) FOR INJECTION 10 ML IV ONE (06:45)
[2020-02-03] MEDS ORDERED: AZITHROMYCIN INJECTION 500 MG in NS (IVPB) 250 ML IV ONE (06:45)
[2020-02-03 07:14] LABS: NEUTROPHILS % (MANUAL) 85 %
[2020-02-03 07:15] LABS: BAND NEUTROPHILS 4 %; BASOPHILS % (MANUAL) 0 %; EOSINOPHILS % (MANUAL) 0 %; LYMPHOCYTES % (MANUAL) 4 %; MONOCYTES % (MANUAL) 7 %; RBC MORPH NORMAL
--- NOTE | 2020-02-03 07:24 | NUR ---
Report to LEA Dorsey.
--- NOTE | 2020-02-03 07:25 | Diagnostic Imaging Report ---
EXAMINATION: Chest 1 view HISTORY: Chest pain. Fever and cough. COMPARISON: Chest radiograph on 11/06/2019. FINDINGS: Consolidative patchy opacities are seen in the left lung base and bilateral perihilar regions. No large pleural effusion or pneumothorax. The cardiac silhouette is unremarkable. No acute osseous abnormalities. IMPRESSION: 1. Patchy consolidative opacities in the bilateral perihilar regions and left lung base, concerning for pneumonia. No pleural effusion. Dictated by: Dictated on workstation # [id number]
[2020-02-03] MEDS ORDERED: AZIT250T12 PO (07:34)
[2020-02-03] MEDS ORDERED: CEFD300C3 PO (07:34)
[2020-02-03] MEDS ORDERED: ONDA4TAB11 PO (07:34)
[2020-02-03] MEDS ORDERED: BENZ100C18 PO (07:34)
[2020-02-03] MEDS ORDERED: OSLT75C PO (08:42)
[2020-02-03 08:59] LABS: BILIRUBIN,URINE NEGATIVE (NEGATIVE); CLARITY,URINE CLEAR; COLOR,URINE YELLOW; GLUCOSE, URINE (UA) NEGATIVE (NEGATIVE); KETONES,URINE NEGATIVE (NEGATIVE); LEUKOCYTE ESTERASE ,URINE NEGATIVE (NEGATIVE); NITRITE,URINE NEGATIVE (NEGATIVE); PROTEIN,URINE NEGATIVE (NEGATIVE)
[2020-02-03 09:30] LABS: BACTERIA,URINE NEGATIVE /HPF
[2020-02-03 11:18] VITALS: BP 118/72
== END 2020-02-03 11:18 | disposition home or self-care (01) ==
LOC: EDUNIT# 05:39 → ER 05:41
DX: J10.1 Influenza due to other identified influenza virus with other respiratory manifestations (principal); J18.9 Pneumonia, unspecified organism; F41.9 Anxiety disorder, unspecified; I25.2 Old myocardial infarction; F17.210 Nicotine dependence, cigarettes, uncomplicated; Z20.828 Contact with and (suspected) exposure to other viral communicable diseases; Z82.49 Family history of ischemic heart disease and other diseases of the circulatory system; Z95.5 Presence of coronary angioplasty implant and graft; Z79.82 Long term (current) use of aspirin
CPT/HCPCS: 71045; 80053; 81000; 82550; 83605; 83615; 83735; 83874; 83880; 84145; 84484; 85007; 85027; 85379; 85610; 85730; 86141; 87040; 87088; 87804; 93005; 93041; U0002; 36415; 87635

== ENCOUNTER 2020-04-28 19:12 | Observation (INO) | payer OTHER ==
[~2020-04-28] VITALS: Ht 188 cm; Wt 92.8 kg
[~2020-04-28 19:12] MED LIST changes: +AZIT250T12 PO; +BENZ100C18 PO; +CEFD300C3 PO; +ONDA4TAB11 PO; +OSLT75C PO
[2020-04-28 19:29] LABS: BASOPHILS # (AUTO) 0.1 10^3/uL (0.0-0.1); BASOPHILS % (AUTO) 1 % (0-10); EOSINOPHILS # (AUTO) 0.6 10^3/uL (0.0-0.3); EOSINOPHILS % (AUTO) 6 % (0-10); HEMATOCRIT 42 % (40-54); HEMOGLOBIN 14.8 g/dL (13.3-17.7); LYMPHOCYTES # (AUTO) 2.1 10^3/uL (1.0-4.0); LYMPHOCYTES % (AUTO) 19 % (12-44); MEAN CORPUSCULAR HEMOGLOBIN 31 pg (25-34); MEAN CORPUSCULAR HGB CONC 35 g/dL (32-36); MEAN CORPUSCULAR VOLUME 90 fL (80-99); MEAN PLATELET VOLUME 9.2 fL (9.0-12.2); MONOCYTES # (AUTO) 1.1 10^3/uL (0.0-1.0); MONOCYTES % (AUTO) 10 % (0-12); NEUTROPHILS # (AUTO) 6.7 10^3/uL (1.8-7.8); NEUTROPHILS % (AUTO) 63 % (42-75); PLATELET COUNT 271 10^3/uL (130-400); WHITE BLOOD COUNT 10.5 10^3/uL (4.3-11.0)
[2020-04-28] MEDS ORDERED: morphine INJ 10 MG/ML 1ML (SYR OR VIAL) IVP STA (19:38)
[2020-04-28 19:39] LABS: ALBUMIN 3.7 GM/DL (3.2-4.5); CHLORIDE 105 MMOL/L (98-107); POTASSIUM 3.8 MMOL/L (3.6-5.0); SODIUM 138 MMOL/L (135-145)
[2020-04-28 19:40] LABS: CALCIUM 8.4 MG/DL (8.5-10.1)
[2020-04-28 19:41] LABS: GLUCOSE 92 MG/DL (70-105)
[2020-04-28 19:43] LABS: BILIRUBIN,TOTAL 0.4 MG/DL (0.1-1.0); CARBON DIOXIDE 22 MMOL/L (21-32)
[2020-04-28 19:45] LABS: ALKALINE PHOSPHATASE 101 U/L (40-136); CREATININE SERUM 0.91 MG/DL (0.60-1.30); GFR ESTIMATED > 60
[2020-04-28 19:46] LABS: BUN/CREATININE RATIO 12
[2020-04-28 19:48] LABS: ALANINE AMINOTRANSFERASE 285 U/L (0-55)
--- NOTE | 2020-04-28 19:48 | ED Chest Pain ---
General Chief Complaint: Chest Pain Stated Complaint: CHEST PAIN Nursing Triage Note: brought in by [facility] from [facility] for c/o chest pain since approx. 1800. pt reports pain began approx. 15min after eating. reports sharp/stabbing pain. Nursing Sepsis Screen: No Definite Risk Source: patient Exam Limitations: no limitations History of Present Illness Date Seen by Provider: Apr 28, 2020 Time Seen by Provider: 19:48 Initial Comments This is a 35-year-old male who presents to the ER in [facility] custody with c/o of left chest wall pain that started around 1800. States he was walking around when he had sudden onset chest pain and shortness of breath. Describes as sharp/stabbing pain that radiates down into his left arm and rated 10/10. States it feels exactly like his prior [place] in 02/2019. He has a history of HTN, HLD, and cardiac stent that was placed by Dr. Cooney in 2018. Additionally, he is supposed to be on plavix, metoprolol, aspirin, and atorvastatin daily. However, he has not been taking these for the past 2 months due to cost. Denies fever, chills, cough, abdominal pain, N/V/D. No COVID exposure or ill contacts. 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 Current PPD cigarette smoker. Rare alcohol use. Allergies and Home Medications Allergies Coded Allergies: No Known Drug Allergies (Unverified , 01/09/19) Home Medications Aspirin 81 Mg Tab.chew, 81 MG PO DAILY Prescribed by: MAREN COONEY on 03/21/19 1158 Atorvastatin Calcium 80 Mg Tablet, 80 MG PO HS Prescribed by: MAREN COONEY on 03/21/19 1158 Azithromycin 250 Mg Tablet, 250 MG PO DAILY Prescribed by: SIRI TORRES on 02/03/2034 Benzonatate 100 Mg Capsule, 100 MG PO Q6H PRN for COUGH Prescribed by: SIRI TORRES on 02/03/2034 Cefadroxil 500 Mg Capsule, 500 MG PO BID Prescribed by: DANELLE CLARK on 03/24/191944 Cefdinir 300 Mg Capsule, 300 MG PO BID Prescribed by: SIRI TORRES on 02/03/2034 Clopidogrel Bisulfate 75 Mg Tablet, 75 MG PO DAILY Prescribed by: MAREN COONEY on 03/21/19 1158 Lisinopril 5 Mg Tablet, 5 MG PO DAILY Prescribed by: MAREN COONEY on 03/21/19 1158 Metoprolol Succinate 50 Mg Tab.er.24h, 50 MG PO DAILY Prescribed by: MAREN COONEY on 03/21/19 1158 Ondansetron 4 Mg Tab.rapdis, 4 MG PO Q6H PRN for NAUSEA/VOMITING Prescribed by: SIRI TORRES on 02/03/20 0734 Oseltamivir Phosphate 75 Mg Cap, 75 MG PO BID Prescribed by: SIRI TORRES on 02/03/20 0842 Tramadol HCl 50 Mg Tablet, 50 MG PO Q6H PRN for PAIN Prescribed by: DANELLE CLARK on 03/24/191944 Patient Home Medication List Home Medication List Reviewed: Yes Review of Systems Review of Systems Constitutional: no symptoms reported EENTM: No Symptoms Reported Respiratory: See HPI Cardiovascular: See HPI Gastrointestinal: No Symptoms Reported Genitourinary: No Symptoms Reported Musculoskeletal: no symptoms reported Skin: no symptoms reported Psychiatric/Neurological: No Symptoms Reported Endocrine: No Symptoms Reported Hematologic/Lymphatic: No Symptoms Reported Past Frutmrc-Maxvnu-Lcoaxu Hx Patient Social History Alcohol Use: Occasionally Uses Number of Drinks Today: AA Alcohol Beverage of Choice: Beer Recreational Drug Use: Yes Drug of Choice: UDS Pos amphetamines/methamphetamines Smoking Status: Current Everyday Smoker Type Used: Cigarettes 2nd Hand Smoke Exposure: Yes Recent Foreign Travel: No Contact w/Someone Who Travel: No Recent Infectious Disease Expo: No Recent Hopitalizations: No Immunizations Up To Date Tetanus Booster (TDap): Less than 5yrs Seasonal Allergies Seasonal Allergies: No Past Medical History Surgeries: Yes (CARDIAC STENT X2) Appendectomy, Cardiac, Coronary Stent Respiratory: No Cardiac: Yes Heart Attack, Hypertension Neurological: No Genitourinary: No Gastrointestinal: No Musculoskeletal: No Endocrine: No HEENT: No Cancer: No Psychosocial: No Anxiety Integumentary: No Blood Disorders: No Family Medical History Heart Disease Physical Exam Vital Signs Vital Signs - First Documented 04/28/20 19:15 Temp 36.7 Pulse 80 Resp 21 B/P (MAP) 151/84 (106) Capillary Refill : Less Than 3 Seconds Height, Weight, BMI Height: '" Weight: lbs. oz. kg; 24.00 BMI Method: General Appearance: No Apparent Distress, WD/WN HEENT: PERRL/EOMI, Moist Mucous Membranes Neck: Normal Inspection, Supple Respiratory: Lungs Clear, Normal Breath Sounds, No Accessory Muscle Use Cardiovascular: Regular Rate, Rhythm, No Murmur, Normal Peripheral Pulses; No Friction Rub, No Gallop/S4 Gastrointestinal: Normal Bowel Sounds, Non Tender, Soft Extremity: Normal Capillary Refill, Normal Inspection, Normal Range of Motion, No Pedal Edema Neurologic/Psychiatric: Alert, Oriented x3, No Motor/Sensory Deficits, Normal Mood/Affect Skin: Normal Color, Warm/Dry Procedures/Interventions Suture Size: 4-0 Progress/Results/Core Measures Results/Orders Lab Results Laboratory Tests Test 04/28/20 19:19 Range/Units White Blood Count 10.5 4.3-11.0 10^3/uL Red Blood Count 4.74 4.30-5.52 10^6/uL Hemoglobin 14.8 13.3-17.7 g/dL Hematocrit 42 40-54 % Mean Corpuscular Volume 90 80-99 fL Mean Corpuscular Hemoglobin 31 25-34 pg Mean Corpuscular Hemoglobin Concent 35 32-36 g/dL Red Cell Distribution Width 11.3 10.0-14.5 % Platelet Count 271 130-400 10^3/uL Mean Platelet Volume 9.2 9.0-12.2 fL Immature Granulocyte % (Auto) 0 % Neutrophils (%) (Auto) 63 42-75 % Lymphocytes (%) (Auto) 19 12-44 % Monocytes (%) (Auto) 10 0-12 % Eosinophils (%) (Auto) 6 0-10 % Basophils (%) (Auto) 1 0-10 % Neutrophils # (Auto) 6.7 1.8-7.8 10^3/uL Lymphocytes # (Auto) 2.1 1.0-4.0 10^3/uL Monocytes # (Auto) 1.1 H 0.0-1.0 10^3/uL Eosinophils # (Auto) 0.6 H 0.0-0.3 10^3/uL Basophils # (Auto) 0.1 0.0-0.1 10^3/uL Immature Granulocyte # (Auto) 0.0 0.0-0.1 10^3/uL Prothrombin Time 14.0 12.2-14.7 SEC INR Comment 1.0 0.8-1.4 Activated Partial Thromboplast Time 29 24-35 SEC Sodium Level 138 135-145 MMOL/L Potassium Level 3.8 3.6-5.0 MMOL/L Chloride Level 105 98-107 MMOL/L Carbon Dioxide Level 22 21-32 MMOL/L Anion Gap 11 5-14 MMOL/L Blood Urea Nitrogen 11 7-18 MG/DL Creatinine 0.91 0.60-1.30 MG/DL Estimat Glomerular Filtration Rate > 60 BUN/Creatinine Ratio 12 Glucose Level 92 70-105 MG/DL Calcium Level 8.4 L 8.5-10.1 MG/DL Corrected Calcium 8.6 8.5-10.1 MG/DL Magnesium Level 2.0 1.6-2.4 MG/DL Total Bilirubin 0.4 0.1-1.0 MG/DL Aspartate Amino Transf (AST/SGOT) 110 H 5-34 U/L Alanine Aminotransferase (ALT/SGPT) 285 H 0-55 U/L Alkaline Phosphatase 101 40-136 U/L Total Creatine Kinase 476 H 30-200 U/L Myoglobin 121.0 H 10.0-92.0 NG/ML Troponin I < 0.028 <0.028 NG/ML Total Protein 7.0 6.4-8.2 GM/DL Albumin 3.7 3.2-4.5 GM/DL My Orders Orders - KESHA WELLINGTON APRN Morphine Injection (Morphine Injection (04/28/20 19:38) Troponin I (04/28/20 22:00) Myoglobin Serum (04/28/20 22:00) Creatine Kinase (04/28/20 20:16) Clopidogrel Tablet (Plavix Tablet) (04/28/20 20:45) Metoprolol Succinate (Xl) Tab (Toprol Xl (04/28/20 21:00) Enoxaparin Injection (Lovenox Injection) (04/28/20 21:00) Metoprolol Succinate (Xl) Tab (Toprol Xl (04/28/20 20:59) Medications Given in ED Current Medications Medications Dose Ordered Sig/Yaneli Route Start Time Stop Time Status Last Admin Dose Admin Clopidogrel Bisulfate 300 mg ONCE ONCE PO 04/28/20 20:45 04/28/20 20:46 DC 04/28/20 21:04 300 MG Enoxaparin Sodium 90 mg ONCE ONCE SC 04/28/20 21:00 04/28/20 21:01 DC 04/28/20 21:04 90 MG Metoprolol Succinate 50 mg STK-MED ONCE PO 04/28/20 20:59 04/28/20 21:04 DC 04/28/20 21:05 100 MG Vital Signs/I&O 04/28/20 04/28/20 04/28/20 19:15 19:15 19:15 Temp 36.7 Pulse 80 Resp 21 B/P (MAP) 151/84 (106) Pulse Ox 99 99 O2 Delivery Room Air Room Air Room Air Blood Pressure Mean: 106 Progress Progress Note : Progress Note EMS reports aspirin 324mg, morphine 4mg IVP, Nitro (2) tabs, and Nitro past 2' given prior to arrival. On arrival continued to report pain 10/10. Cardiac workup initiated and Morphine 4mg IVP ordered. Initial troponin neg, however he does have elevated Myoglobin. Reported pain down to 2/10 with last Morphine dose. Elevated liver enzymes noted. No c.o abdominal pain or N.V. Will trend troponin and repeat in 3 hours. CXR shows NAD. Discussed case with Dr. Cooney, recommended admission to cardiac stepdown and admit to hospitalist. Orders for Metoprolol, Plavix, and Lovenox ordered as requested. Orders given to remove nitro paste. Reviewed POC with patient and he is agreeable with plan. Called Dr. Craft, and she is agreeable with obs. admission and cardiology consult/management for chest pain. Will order GB/liver US in am to further evaluate elevated liver enzymes. Patient to be NPO after midnight for test. VSS. He is stable to transfer to cardiac unit. FULL CODE EKG #1: EKG Time: 19:14 Rate: 81 Rhythm: Normal Sinus Intervals: Normal ECG Comparisson: Unchanged ECG Impression: Normal EKG #2: EKG Time: 21:06 Rate: 72 Rhythm: Normal Sinus Intervals: Normal ECG Comparisson: Unchanged Diagnostic Imaging Diagonstic Imaging: Xray Plain Films/CT/US/NM/MRI: chest Comments NAME: GISELLE CELESTIN JR MED REC#: [id number] PT STATUS: REG ER : 1985 PHYSICIAN: KELLY AYALA MD ADMIT DATE: 04/28/20/ER Signed Date of Exam:04/28/20 CHEST 1 VIEW, AP/PA ONLY INDICATION: Chest pain. Comparison with 02/03/2020. FINDINGS: The lungs are well-aerated without air-trapping or infiltrate. There is a linear metallic density measuring 2 cm in length overlying the left lateral aspect of the left lung. This is of uncertain etiology and may represent nipple stud. The heart is not enlarged. No pneumothorax or pleural effusion. No bony abnormalities. IMPRESSION: 2 cm metal foreign body overlying the left chest reported which may be nipple stud. Clinical correlation. The lungs are otherwise clear. Dictated by: Dictated on workstation # [id number] Dict: 04/28/201935 Trans: 04/28/202006 CVB [id number] Interpreted by: PNACHO CATHERINE MD Electronically signed by: PANCHO CATHERINE MD 04/28/202006 Departure Communication (Admissions) Time/Spoke to Admitting Phy: 20:[address] Craft, agreeable with observation admission and cardiology consult. Time/Spoke to Consulting Phy: 20:[address] Cooney, recommended observation admission. Orders for Metoprolol 100 mg XL 1 now, full Lovenox therapy 1 now and every 12 hours, 324mg aspirin and Plavix 300 mg 1 now. Restart ASA, Metoprolol, and Plavix daily. Impression Primary Impression: Chest pain, rule out acute myocardial infarction Additional Impression: Elevated liver enzymes Disposition: ADMITTED INPATIENT Condition: Stable Admissions Decision to Admit Reason: Admit from ER (General) Decision to Admit/Date: Apr 28, 2020 Time/Decision to Admit Time: 20:30 Departure-Patient Inst. Referrals: NO,LOCAL PHYSICIAN (PCP/Family) Primary Care Physician Copy Copies To 1: MAREN COONEY MD FACP FAC CCDS Copies To 2: [facility]/KESHA AYERS EVALUATION ENGINEER Apr 28, 2020 19:48
[2020-04-28] MEDS ORDERED: CLOPIDOGREL 300 MG (PLAVIX) TABLET PO ONE (20:45)
[2020-04-28] MEDS ORDERED: meTOproloL SUCCINATE 50 MG (TOPROL XL) TAB PO ONE (20:59)
[2020-04-28] MEDS ORDERED: ENOXAPARIN 100 MG/1 ML (LOVENOX) SYR SC ONE (21:00)
[2020-04-28] MEDS ORDERED: meTOprolol SUCCINATE 100 MG (TOPROL XL) TAB PO ONE (21:00)
[2020-04-28] MEDS ORDERED: ONDANSETRON 4 MG/2 ML (SDV) Z0FRAN IVP PRN (21:45)
[2020-04-28] MEDS ORDERED: morphine INJ 4 MG/ML 1 ML (VIAL/SYRINGE) IVP PRN (21:45)
[2020-04-28 22:00] VITALS: BP 115/72
[2020-04-28 22:03] VITALS: BP 130/72
[2020-04-29] VITALS: BP 111/70
--- NOTE | 2020-04-29 01:41 | NUR ---
Jacksononeb Q2 PRN. Intiate O2 to keep sats >90%. RT to reasses or reevaulate in 72 hours or as needed. Addendum: 04/29/20 at 0141 by WILLIAMS LIZ RT Amended: Links added.
[2020-04-29] MEDS ORDERED: RT-ALBUTEROL/IPRATROPIUM 3 ML (DUONEB) VIAL INH PRN (01:45)
[2020-04-29 02:06] LABS: BASOPHILS # (AUTO) 0.1 10^3/uL (0.0-0.1); BASOPHILS % (AUTO) 1 % (0-10); EOSINOPHILS # (AUTO) 0.7 10^3/uL (0.0-0.3); EOSINOPHILS % (AUTO) 8 % (0-10); HEMATOCRIT 43 % (40-54); HEMOGLOBIN 14.7 g/dL (13.3-17.7); LYMPHOCYTES # (AUTO) 2.5 10^3/uL (1.0-4.0); LYMPHOCYTES % (AUTO) 26 % (12-44); MEAN CORPUSCULAR HEMOGLOBIN 31 pg (25-34); MEAN CORPUSCULAR HGB CONC 34 g/dL (32-36); MEAN CORPUSCULAR VOLUME 92 fL (80-99); MEAN PLATELET VOLUME 9.7 fL (9.0-12.2); MONOCYTES # (AUTO) 1.1 10^3/uL (0.0-1.0); MONOCYTES % (AUTO) 11 % (0-12); NEUTROPHILS # (AUTO) 5.3 10^3/uL (1.8-7.8); NEUTROPHILS % (AUTO) 55 % (42-75); PLATELET COUNT 239 10^3/uL (130-400); WHITE BLOOD COUNT 9.7 10^3/uL (4.3-11.0)
[2020-04-29 02:18] LABS: CHLORIDE 107 MMOL/L (98-107); POTASSIUM 3.9 MMOL/L (3.6-5.0); SODIUM 140 MMOL/L (135-145)
[2020-04-29 02:19] LABS: ALBUMIN 3.4 GM/DL (3.2-4.5); CALCIUM 8.3 MG/DL (8.5-10.1)
[2020-04-29 02:20] LABS: TRIGLYCERIDES 202 MG/DL (<150); VLDL CHOLESTEROL 40 MG/DL (5-40)
[2020-04-29 02:21] LABS: GLUCOSE 94 MG/DL (70-105); TOTAL PROTEIN 6.6 GM/DL (6.4-8.2)
[2020-04-29 02:22] LABS: CARBON DIOXIDE 19 MMOL/L (21-32)
[2020-04-29 02:23] LABS: BILIRUBIN,TOTAL 0.3 MG/DL (0.1-1.0)
[2020-04-29 02:25] LABS: ALKALINE PHOSPHATASE 90 U/L (40-136); CHOLESTEROL 147 MG/DL (< 200); CREATININE SERUM 0.88 MG/DL (0.60-1.30); GFR ESTIMATED > 60
[2020-04-29 02:26] LABS: BILIRUBIN,DIRECT 0.1 MG/DL (0.0-0.3); BILIRUBIN,INDIRECT 0.2 MG/DL; BUN/CREATININE RATIO 11
[2020-04-29 02:27] LABS: HDL CHOLESTEROL 39 MG/DL (40-60)
[2020-04-29 02:28] LABS: ALANINE AMINOTRANSFERASE 250 U/L (0-55)
[2020-04-29 04:00] VITALS: BP 117/71
[2020-04-29] MEDS ORDERED: FLU QUADRIvalent (3YOA+) 60 mcg/0.5 ml 2020-21 (AFLURIA) IM ONE (07:15)
--- NOTE | 2020-04-29 07:39 | Consultation-Cardiology ---
HPI-Cardiology Cardiology Consultation: Date of Consultation 04/29/20 Date of Admission 04-28-20 Attending Physician Kaykay Alas MD Admitting Physician No,Local Physician Consulting Physician Kevin Cooney MD CDO-Nrdibg-Dhqsew Hx Patient Social History Alcohol Use: Occasionally Uses Recreational Drug Use: Yes Drug of Choice: UDS Pos amphetamines/methamphetamines Smoking Status: Current Everyday Smoker Type Used: Cigarettes 2nd Hand Smoke Exposure: Yes Recent Foreign Travel: No Recent Infectious Disease Expo: No Hospitalization with Isolation: Denies Immunizations Up To Date Tetanus Booster (TDap): Less than 5yrs Past Medical History PMH As described under Assessment. Family Medical History Family Medical History: Report fam h/o early CAD (father) Allergies and Home Medications Allergies Coded Allergies: No Known Drug Allergies (Unverified , 01/09/19) Home Medications Aspirin 81 Mg Tab.chew, 81 MG PO DAILY Prescribed by: RAPHAEL NEAL on 04/29/20 0937 Atorvastatin Calcium 80 Mg Tablet, 80 MG PO HS Prescribed by: KEVIN COONEY on 03/21/19 1158 Azithromycin 250 Mg Tablet, 250 MG PO DAILY Prescribed by: SIRI TORRES on 02/03/20 0734 Benzonatate 100 Mg Capsule, 100 MG PO Q6H PRN for COUGH Prescribed by: SIRI TORRES on 02/03/20 0734 Cefadroxil 500 Mg Capsule, 500 MG PO BID Prescribed by: DANELLE CLARK on 03/24/19 194 Cefdinir 300 Mg Capsule, 300 MG PO BID Prescribed by: SIRI TORRES on 02/03/20 0734 Cephalexin 500 Mg Capsule, 500 MG PO TID Prescribed by: KESHA WELLINGTON on 04/30/20 1436 Clopidogrel Bisulfate 75 Mg Tablet, 75 MG PO DAILY Prescribed by: RAPHAEL NEAL on 04/29/20 0937 Lisinopril 5 Mg Tablet, 5 MG PO DAILY Prescribed by: KEVIN COONEY on 03/21/19 1158 Metoprolol Succinate 50 Mg Tab.er.24h, 50 MG PO DAILY Prescribed by: KEVIN COONEY on 03/21/19 1158 Metoprolol Succinate 100 Mg Tab.er.24h, 100 MG PO DAILY Prescribed by: RAPHAEL NEAL on 04/29/20 0937 Ondansetron 4 Mg Tab.rapdis, 4 MG PO Q6H PRN for NAUSEA/VOMITING Prescribed by: SIRI TORRES on 02/03/20 0734 Oseltamivir Phosphate 75 Mg Cap, 75 MG PO BID Prescribed by: SIRI TORRES on 02/03/20 0842 Tramadol HCl 50 Mg Tablet, 50 MG PO Q6H PRN for PAIN Prescribed by: DANELLE CLARK on 03/24/191944 Tramadol HCl 50 Mg Tablet, 50 MG PO Q6H PRN for PAIN Prescribed by: KESHA WELLINGTON on 05/02/20 1627 Physical Exam-Cardiology Physical Exam Vital Signs/I&O Capillary Refill : Less Than 3 Seconds Data Review Labs Radiology NAME: GISELLE CELESTIN JR [facility] REC#: [id number] PT STATUS: REG ER : 1985 PHYSICIAN: KELLY AYALA MD ADMIT DATE: 04/28/20/ER Signed Date of Exam:04/28/20 CHEST 1 VIEW, AP/PA ONLY INDICATION: Chest pain. Comparison with 02/03/2020. FINDINGS: The lungs are well-aerated without air-trapping or infiltrate. There is a linear metallic density measuring 2 cm in length overlying the left lateral aspect of the left lung. This is of uncertain etiology and may represent nipple stud. The heart is not enlarged. No pneumothorax or pleural effusion. No bony abnormalities. IMPRESSION: 2 cm metal foreign body overlying the left chest reported which may be nipple stud. Clinical correlation. The lungs are otherwise clear. 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 Card cath of 03/20/19 showed severe prox disease (treated with Alp Xience 3 x 33 stent) and total distal occlusion of the RCA (treated with Alp Xience 3 x 20 stent). Other cors did not show significant dz. LVEF 50%. LVEDP 16 mmHg Chronic tobacco use. He has been advised to quit immediately and completely Echo of 03/21/19: LVEF 55-60%, inferoseptal hypokinesis, RVSP 21 mmHg Clinical Quality Measures AMI/AHF: ASA po Prior to arrival: Yes (324) DVT/VTE Risk/Contraindication: Risk Factor Score Per Nursin RFS Level Per Nursing on Admit: 4+=Very High RAPHAEL NEAL Apr 29, 2020 07:39
[2020-04-29] MEDS ORDERED: meTOprolol SUCCINATE 100 MG (TOPROL XL) TAB PO SCH (09:00)
[2020-04-29] MEDS ORDERED: ASPIRIN E.C. 81 MG (ECOTRIN) TAB PO SCH (09:00)
[2020-04-29] MEDS ORDERED: CLOPIDOGREL 75 MG (PLAVIX) TABLET PO SCH (09:00)
[2020-04-29] MEDS ORDERED: ENOXAPARIN 100 MG/1 ML (LOVENOX) SYR SC SCH (09:00)
--- NOTE | 2020-04-29 09:09 | NUR ---
pt left AMA this am after seen by certified lactation educator. education given, paper signed and placed in chart
[2020-04-29] MEDS ORDERED: MTP100TCR PO (09:37)
[2020-04-29] MEDS ORDERED: CLOP75TA28 PO (09:37)
[2020-04-29] MEDS ORDERED: ASPI-999 PO (09:37)
--- NOTE | 2020-04-29 09:40 | NUR ---
attempted to reach pt to get pharmacy information on where to send his necessary medications, the phone we have listed is disconnected
--- NOTE | 2020-04-29 09:45 | Consultation-Cardiology ---
HPI-Cardiology Cardiology Consultation: Date of Consultation 04/29/20 Time Seen by a Provider: 09:00 Date of Admission Attending Physician Kaykay Alas MD Admitting Physician No,Local Physician Consulting Physician MAREN PARR MD, MA, FACP, FACC, FSCAI, CCDS HPI: Chief Complaint: CC: Chest discomfort HPI 35 yo man admitted with chest pain that started yesterday after he had eaten a sandwich and was walking around his cell: severe, L parasternal, modest relief with nitro in the ER, improved with iv morphine, lasted more than 12 hours, no radiation, no associated symptoms. No shortness of breath or palp or syncope or leg swelling Review of Systems-Cardiology Review of Systems Constitutional: No weight loss, No weight gain Eyes: No vision change Ears/Nose/Throat: No ear discharge, No nasal drainage, No recent hearing loss Respiratory: As described under HPI Cardiovascular: As described under HPI Gastrointestinal: No diarrhea, No nausea, No vomiting Genitourinary: No dysuria, No hematuria, No urine frequency changes Musculoskeletal: No back pain, No joint pain Skin: No rash, No ulcerations Psychiatric/Neurological: No seizure, No focal weakness, No syncope Hematologic: No bleeding abnormalities BRR-Kpvoxr-Kvggzo Hx Patient Social History Alcohol Use: Occasionally Uses Recreational Drug Use: Yes Drug of Choice: UDS Pos amphetamines/methamphetamines Smoking Status: Current Everyday Smoker Type Used: Cigarettes 2nd Hand Smoke Exposure: Yes Recent Foreign Travel: No Recent Infectious Disease Expo: No Hospitalization with Isolation: Denies Immunizations Up To Date Tetanus Booster (TDap): Less than 5yrs Past Medical History PMH As described under Assessment. Family Medical History Family Medical History: Report fam h/o early CAD (father) Allergies and Home Medications Allergies Coded Allergies: No Known Drug Allergies (Unverified , 01/09/19) Home Medications Aspirin 81 Mg Tab.chew, 81 MG PO DAILY Prescribed by: RAPHAEL NEAL on 04/29/20 0937 Atorvastatin Calcium 80 Mg Tablet, 80 MG PO HS Prescribed by: MAREN PARR on 03/21/19 1158 Azithromycin 250 Mg Tablet, 250 MG PO DAILY Prescribed by: SIRI TORRES on 02/03/20 0734 Benzonatate 100 Mg Capsule, 100 MG PO Q6H PRN for COUGH Prescribed by: SIRI TORRES on 02/03/20 0734 Cefadroxil 500 Mg Capsule, 500 MG PO BID Prescribed by: DANELLE CLARK on 03/24/191944 Cefdinir 300 Mg Capsule, 300 MG PO BID Prescribed by: SIRI TORRES on 02/03/20733 Clopidogrel Bisulfate 75 Mg Tablet, 75 MG PO DAILY Prescribed by: RAPHAEL NEAL on 04/29/20 09 Lisinopril 5 Mg Tablet, 5 MG PO DAILY Prescribed by: MAREN PARR on 03/21/19 115 Metoprolol Succinate 50 Mg Tab.er.24h, 50 MG PO DAILY Prescribed by: MAREN PARR on 03/21/19 1158 Metoprolol Succinate 100 Mg Tab.er.24h, 100 MG PO DAILY Prescribed by: RAPHAEL NEAL on 04/29/20 09 Ondansetron 4 Mg Tab.rapdis, 4 MG PO Q6H PRN for NAUSEA/VOMITING Prescribed by: SIRI TORRES on 02/03/2034 Oseltamivir Phosphate 75 Mg Cap, 75 MG PO BID Prescribed by: SIRI TORRES on 02/03/20 0842 Tramadol HCl 50 Mg Tablet, 50 MG PO Q6H PRN for PAIN Prescribed by: DANELLE CLARK on 03/24/191944 Patient Home Medication List Home Medication List Reviewed: Yes Physical Exam-Cardiology Physical Exam Vital Signs/I&O 04/28/20 04/28/20 04/29/20 04/29/20 22:00 22:03 00:00 00:00 Temp 36.9 36.9 Pulse 72 72 64 Resp 18 18 18 B/P (MAP) 115/72 130/72 (91) 111/70 (84) Pulse Ox 100 100 95 100 O2 Delivery Room Air Room Air Room Air Room Air 04/29/20 04/29/20 04/29/20 04/29/20 01:16 02:00 04:00 04:00 Temp 36.8 Pulse 67 62 Resp 22 B/P (MAP) 117/71 (86) Pulse Ox 100 96 O2 Delivery Room Air Room Air 04/29/20 04/29/20 04/29/20 06:00 07:16 08:00 Temp 36.6 Pulse 62 Pulse Ox 100 O2 Delivery Room Air 04/29/20 00:00 Intake Total 1040 ml Output Total 0 ml Balance 1040 ml Capillary Refill : Less Than 3 Seconds Constitutional: AAO x 3, well-developed, well-nourished HEENT: EOMI, hearing is well preserved Neck: carotid pulses are 2 + bilaterally, with good upstrokes Respiratory: No accessory muscle use; other (good, bilateral air entry) Cardiovascular: regular rate-rhythm, S1 and S2 Gastrointestinal: No tender; soft; No guarding, No rebound; audible bowel sounds Extremities: No clubbing, No cyanosis, No significant edema Neurologic/Psychiatric: oriented x 3, other (moves all limbs equally) Skin: No rash on exposed areas, No ulcerations on exposed areas Data Review Labs Laboratory Tests 04/28/20 19:19: White Blood Count 10.5, Red Blood Count 4.74, Hemoglobin 14.8, Hematocrit 42, Mean Corpuscular Volume 90, Mean Corpuscular Hemoglobin 31, Mean Corpuscular Hemoglobin Concent 35, Red Cell Distribution Width 11.3, Platelet Count 271, Mean Platelet Volume 9.2, Immature Granulocyte % (Auto) 0, Neutrophils (%) (Auto) 63, Lymphocytes (%) (Auto) 19, Monocytes (%) (Auto) 10, Eosinophils (%) (Auto) 6, Basophils (%) (Auto) 1, Neutrophils # (Auto) 6.7, Lymphocytes # (Auto) 2.1, Monocytes # (Auto) 1.1H, Eosinophils # (Auto) 0.6H, Basophils # (Auto) 0.1, Immature Granulocyte # (Auto) 0.0, Prothrombin Time 14.0, INR Comment 1.0, Activated Partial Thromboplast Time 29, Sodium Level 138, Potassium Level 3.8, Chloride Level 105, Carbon Dioxide Level 22, Anion Gap 11, Blood Urea Nitrogen 11, Creatinine 0.91, Estimat Glomerular Filtration Rate > 60, BUN/Creatinine Ratio 12, Glucose Level 92, Calcium Level 8.4L, Corrected Calcium 8.6, Magnesium Level 2.0, Total Bilirubin 0.4, Aspartate Amino Transf (AST/SGOT) 110H, Alanine Aminotransferase (ALT/SGPT) 285H, Alkaline Phosphatase 101, Total Creatine Kinase 476H, Myoglobin 121.0H, Troponin I < 0.028, Total Protein 7.0, Albumin 3.7 04/28/20 22:50: Myoglobin 96.6H, Troponin I < 0.028 04/29/20 01:27: White Blood Count 9.7, Red Blood Count 4.70, Hemoglobin 14.7, Hematocrit 43, Mean Corpuscular Volume 92, Mean Corpuscular Hemoglobin 31, Mean Corpuscular Hemoglobin Concent 34, Red Cell Distribution Width 11.4, Platelet Count 239, Mean Platelet Volume 9.7, Immature Granulocyte % (Auto) 0, Neutrophils (%) (Auto) 55, Lymphocytes (%) (Auto) 26, Monocytes (%) (Auto) 11, Eosinophils (%) (Auto) 8, Basophils (%) (Auto) 1, Neutrophils # (Auto) 5.3, Lymphocytes # (Auto) 2.5, Monocytes # (Auto) 1.1H, Eosinophils # (Auto) 0.7H, Basophils # (Auto) 0.1, Immature Granulocyte # (Auto) 0.0, Sodium Level 140, Potassium Level 3.9, Chlo ride Level 107, Carbon Dioxide Level 19L, Anion Gap 14, Blood Urea Nitrogen 10, Creatinine 0.88, Estimat Glomerular Filtration Rate > 60, BUN/Creatinine Ratio 11, Glucose Level 94, Calcium Level 8.3L, Corrected Calcium 8.8, Total Bilirubin 0.3, Aspartate Amino Transf (AST/SGOT) 93H, Alanine Aminotransferase (ALT/SGPT) 250H, Alkaline Phosphatase 90, Troponin I < 0.028, Total Protein 6.6, Albumin 3.4, Direct Bilirubin 0.1, Indirect Bilirubin 0.2, Triglycerides Level 202H, Cholesterol Level 147, LDL Cholesterol Direct 102, VLDL Cholesterol 40, HDL Cholesterol 39L 04/29/20 07:40: Troponin I < 0.028 Laboratory Tests 04/28/20 19:19 04/29/20 01:27 A/P-Cardiology Assessment/Admission Diagnosis Chest pain of undetermined etiology, no evidence of ACS Elevated liver enzymes of undetermined etiology H/ Ac inf wall ID on 03/20/19. 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 Other cors did not show significant dz. LVEF 50%. LVEDP 16 mmHg Chronic tobacco use. He has been advised to quit immediately and completely Quit methamphetamine use 2 yrs ago Echo of 03/21/19: LVEF 55-60%, inferoseptal hypokinesis, RVSP 21 mmHg Noncompliance Discussion and Recomendations * Advised compliance with meds * Advised smoking cessation * Advised to continue to refrain from meth use * Meds: ASA 81 daily, Plavix 75 daily, Toprol XL 100 daily * Not suitable for statin because of considerable transaminase elevation * W/u for liver enz elev is with the Med svce * Outpt cardiac f/u advised Clinical Quality Measures AMI/AHF: ASA po Prior to arrival: Yes (324) DVT/VTE Risk/Contraindication: Risk Factor Score Per Nursin RFS Level Per Nursing on Admit: 4+=Very High MAREN PARR MD FACP FAC CCDS Apr 29, 2020 09:45
--- NOTE | 2020-04-29 10:25 | Diagnostic Imaging Report ---
INDICATION: Right upper quadrant abdominal pain. TECHNIQUE: Multiple grayscale sonographic images were obtained of the right upper quadrant of the abdomen. CORRELATION STUDY: None FINDINGS: LIVER: There is uniform echotexture within the visualized portions of the liver. There is normal, hepatopedal direction of flow within the main portal vein. Liver size is borderline enlarged at 19 cm. GALLBLADDER: The gallbladder demonstrates no definitive shadowing gallstones. No abnormal gallbladder wall thickening or pericholecystic fluid. COMMON BILE DUCT: Not visualized. No definitive overt bile duct dilatation. PANCREAS: Visualized portions appearing unremarkable. AORTA/IVC: Not well visualized. RIGHT KIDNEY: 11.9 x 6.3 x 5.9 cm. No hydronephrosis. OTHER: None. IMPRESSION: 1. Borderline hepatomegaly. 2. No definitive gallstones. Common bile duct cannot be visualized. No overt bile duct dilatation. Dictated by: Dictated on workstation # [id number]
--- NOTE | 2020-04-29 13:27 | Short Stay Summary-Hospitalist ---
Short Stay Diagnosis D/C Date Apr 29, 2020 at 08:07 Patient left AMA prior to being seen by Myself Atypical Chest pain Elevated Liver Enzymes Clinical Quality Measures AMI/AHF: ASA po Prior to arrival: Yes (324) DVT/VTE Risk/Contraindication: Risk Factor Score Per Nursin RFS Level Per Nursing on Admit: 4+=Very High CÉSAR ARRIETA MD Apr 29, 2020 13:27
[2020-04-30] MEDS ORDERED: CEPH-507 PO (14:36)
== END 2020-04-29 08:07 | disposition left against medical advice (07) ==
LOC: EDUNIT# 19:12 → ER 19:14 → CSD 21:04 → UNDOADMOB 21:04 → CSD 21:06 → UNDODISOB 04-29 08:07
PROVIDERS: ADMIT Family Medicine; ATTEND Family Medicine
DX: R07.89 Other chest pain (principal); Z53.21 Procedure and treatment not carried out due to patient leaving prior to being seen by health care provider; R94.5 Abnormal results of liver function studies; I10 Essential (primary) hypertension; F41.9 Anxiety disorder, unspecified; F17.210 Nicotine dependence, cigarettes, uncomplicated; Z79.82 Long term (current) use of aspirin; Z79.899 Other long term (current) drug therapy; Z95.5 Presence of coronary angioplasty implant and graft
CPT/HCPCS: 71045; 76705; 80053 ×2; 80061; 82248; 82550; 83735; 83874; 84484 ×2; 85025 ×2; 85610; 85730; 93005 ×2; 93041; 96372; 96374; 99284; G0378; 36415; 80076

== ENCOUNTER 2020-04-30 13:06 | Emergency (ER) | payer SELFPAY ==
[~2020-04-30] VITALS: Ht 187.9 cm; Wt 86.2 kg
[~2020-04-30 13:06] MED LIST changes: +MTP100TCR PO
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
[2020-04-30 13:24] LABS: BASOPHILS # (AUTO) 0.1 10^3/uL (0.0-0.1); BASOPHILS % (AUTO) 1 % (0-10); EOSINOPHILS # (AUTO) 0.7 10^3/uL (0.0-0.3); EOSINOPHILS % (AUTO) 5 % (0-10); HEMATOCRIT 48 % (40-54); HEMOGLOBIN 16.4 g/dL (13.3-17.7); LYMPHOCYTES # (AUTO) 2.2 10^3/uL (1.0-4.0); LYMPHOCYTES % (AUTO) 15 % (12-44); MEAN CORPUSCULAR HEMOGLOBIN 32 pg (25-34); MEAN CORPUSCULAR HGB CONC 34 g/dL (32-36); MEAN CORPUSCULAR VOLUME 92 fL (80-99); MEAN PLATELET VOLUME 9.2 fL (9.0-12.2); MONOCYTES # (AUTO) 1.4 10^3/uL (0.0-1.0); MONOCYTES % (AUTO) 10 % (0-12); NEUTROPHILS # (AUTO) 10.6 10^3/uL (1.8-7.8); NEUTROPHILS % (AUTO) 71 % (42-75); PLATELET COUNT 274 10^3/uL (130-400)
[2020-04-30 13:32] LABS: ALBUMIN 4.4 GM/DL (3.2-4.5)
[2020-04-30 13:33] LABS: CHLORIDE 99 MMOL/L (98-107); POTASSIUM 3.7 MMOL/L (3.6-5.0); SODIUM 138 MMOL/L (135-145)
[2020-04-30 13:34] LABS: CALCIUM 9.3 MG/DL (8.5-10.1)
[2020-04-30 13:35] LABS: TOTAL PROTEIN 8.6 GM/DL (6.4-8.2)
[2020-04-30 13:36] LABS: CARBON DIOXIDE 29 MMOL/L (21-32)
[2020-04-30 13:37] LABS: BILIRUBIN,TOTAL 0.6 MG/DL (0.1-1.0)
[2020-04-30 13:38] LABS: ALKALINE PHOSPHATASE 111 U/L (40-136)
[2020-04-30] MEDS ORDERED: DEXTROSE 50% 50 ML (IMS) SYR ONE (13:38)
[2020-04-30 13:39] LABS: CREATININE SERUM 1.11 MG/DL (0.60-1.30); GFR ESTIMATED > 60
[2020-04-30 13:40] LABS: BUN/CREATININE RATIO 10; GLUCOSE 60 MG/DL (70-105)
[2020-04-30 13:41] LABS: ALANINE AMINOTRANSFERASE 233 U/L (0-55)
[2020-04-30] MEDS ORDERED: CATHETER FLUSH 10 ML SYR IV PRN (13:45)
[2020-04-30] MEDS ORDERED: IOHEXOL 350 MG/ML 100 ML (OMNIPAQUE 350) VIAL IV ONE (13:45)
[2020-04-30] MEDS ORDERED: DEXTROSE 50% 50 ML (IMS) SYR IV ONE (13:45)
[2020-04-30] MEDS ORDERED: HOLD METFORMIN - RECEIVED CONTRAST 20 ML VIAL IV SCH (13:45)
[2020-04-30] MEDS ORDERED: NS 100 ML (IVPB) BAG IV ONE (13:45)
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
[2020-04-30 13:52] LABS: BAND NEUTROPHILS 3 %; BASOPHILS % (MANUAL) 1 %; EOSINOPHILS % (MANUAL) 11 %; LYMPHOCYTES % (MANUAL) 17 %; MONOCYTES % (MANUAL) 5 %; NEUTROPHILS % (MANUAL) 63 %; RBC MORPH NORMAL
[2020-04-30] MEDS ORDERED: TETANUS,DIPTH,PERTUSS P/F (BOOSTRIX) 0.5 ML VIAL IM ONE (14:00)
[2020-04-30] MEDS ORDERED: LIDOCAINE 1% INJ 20 ML 20 ML VIAL ONE (14:10)
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
[2020-04-30] MEDS ORDERED: CEPH-507 PO (14:36)
[2020-04-30 14:42] VITALS: BP 125/84
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
== END 2020-04-30 14:42 | disposition home or self-care (01) ==
LOC: EDUNIT# 13:06 → ER 13:08
DX: S31.139A Puncture wound of abdominal wall without foreign body, unspecified quadrant without penetration into peritoneal cavity, initial encounter (principal); I11.0 Hypertensive heart disease with heart failure; I50.9 Heart failure, unspecified; Z77.22 Contact with and (suspected) exposure to environmental tobacco smoke (acute) (chronic); Z95.5 Presence of coronary angioplasty implant and graft; W26.0XXA Contact with knife, initial encounter
CPT/HCPCS: 12002; 36415; 71045; 74177; 80053; 85007; 85027; 86850; 86900; 86901

== ENCOUNTER 2020-05-02 14:35 | Emergency (ER) | payer SELFPAY ==
[~2020-05-02] VITALS: Ht 182 cm; Wt 86.3 kg
[2020-05-02] MEDS ORDERED: HYDROcodone/APAP 5 MG/325 MG (LORTAB) TAB PO ONE (15:15)
--- NOTE | 2020-05-02 15:19 | NUR ---
PAIN MED GIVEN PATIENT YELLED AT THIS NURSE SAID YOU COULD GIVE SOMETHING THAT WORKS A LITTLE FASTER,INFORMED I CAN ONLY GIVE WHAT IS ORDER HE TOLD THIS NURSE THAT YOU JUST LIKE TO SEE YPUR PATIENT SUFFER INFORMD AGAIN I CAN ONLY GIVE WHAT IS ORDER.
--- NOTE | 2020-05-02 15:21 | NUR ---
CON'T TO YELL AND SCREAM FROM ROOM
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
[2020-05-02] MEDS ORDERED: HYDROmorphone 2 MG/ML VIAL (DILAUDID) IM ONE (15:30)
--- NOTE | 2020-05-02 16:03 | Diagnostic Imaging Report ---
INDICATION: Left wrist pain. EXAMINATION: Three views of the left wrist. FINDINGS: No fracture, dislocation or other abnormality. IMPRESSION: Normal left wrist. Dictated by: Dictated on workstation # [id number]
--- NOTE | 2020-05-02 16:04 | NUR ---
TO ROOM REPORTS PAIN BETTER BUT STILL HURTS LIKE HELL.
--- NOTE | 2020-05-02 16:04 | Diagnostic Imaging Report ---
INDICATION: Left forearm pain. No recent injury. EXAMINATION: Two views of the left forearm. FINDINGS: No fracture, dislocation or other abnormality. IMPRESSION: Normal left forearm. Dictated by: Dictated on workstation # [id number]
[2020-05-02] MEDS ORDERED: TRM50T PO (16:27)
[2020-05-02] MEDS ORDERED: ORPHENADRINE 60 MG/2 ML (NORFLEX) AMP (ED ONLY) IM ONE (16:30)
[2020-05-02 16:45] VITALS: BP 158/69
== END 2020-05-02 16:50 | disposition home or self-care (01) ==
LOC: EDUNIT# 14:35 → ER 14:37
DX: M25.532 Pain in left wrist (principal); I25.2 Old myocardial infarction; I10 Essential (primary) hypertension; F17.210 Nicotine dependence, cigarettes, uncomplicated; Z95.5 Presence of coronary angioplasty implant and graft; Z79.82 Long term (current) use of aspirin
CPT/HCPCS: 73090; 73110; 99283; A4565

== ENCOUNTER 2020-07-19 20:00 | Observation (INO) | payer OTHER ==
[~2020-07-19] VITALS: Ht 188 cm; Wt 94.0 kg
[~2020-07-19 20:00] MED LIST changes: -LISI-556 PO; +LISI-729 PO
[2020-07-19] MEDS ORDERED: NITROGLYCERIN 0.4 MG SL TABS BTL 25'S SL PRN (20:15)
--- NOTE | 2020-07-19 20:17 | ED Chest Pain ---
General Stated Complaint: CHEST PAIN Source: patient, EMS Exam Limitations: no limitations (REMI THAKUR,) History of Present Illness Date Seen by Provider: Jul 19, 2020 Time Seen by Provider: 20:11 Initial Comments Mr. Smiley is a 35-year-old male who presented to ED via EMS from [facility] for chest pain. It began 15-20 minutes prior to arrival. He has extensive cardiac history with stent placement by Dr. Cooney. He is unable to afford his medications lately and has not taken them in 2 weeks. He is currently on aspirin, plavix, and a few others he cannot remember. The chest pain is severe and radiates into his left arm. Denies nausea or vomiting but does have excessive sweating. Timing/Duration: constant Severity/Quality: severe Location: substernal Radiation: arms Prior CP/Workup: cardiac cath, heart attack ASA po EDUCATIONAL PSYCHOLOGY PROFESSOR: Yes NTG SL EDUCATIONAL PSYCHOLOGY PROFESSOR: Yes (REMI THAKUR,) Timing/Duration: 1/2 hour, constant Severity/Quality: severe Location: substernal, central Radiation: arms Prior CP/Workup: cardiac cath, echocardiography, heart attack Modifying Factors: improves with nitroglycerin ASA po EDUCATIONAL PSYCHOLOGY PROFESSOR: Yes NTG SL EDUCATIONAL PSYCHOLOGY PROFESSOR: Yes Associated Symptoms: No abdominal pain; diaphoresis; No nausea/vomiting, No shortness of breath, No weakness (GISELLE HUGHES MD) Allergies and Home Medications Allergies Coded Allergies: No Known Drug Allergies (Unverified , 01/09/19) Home Medications Aspirin 81 Mg Tab.chew, 81 MG PO DAILY Prescribed by: RAPHAEL NEAL on 04/29/20 0937 Atorvastatin Calcium 80 Mg Tablet, 80 MG PO HS Prescribed by: MAREN COONEY on 03/21/19 1158 Azithromycin 250 Mg Tablet, 250 MG PO DAILY Prescribed by: SIRI TORRES on 02/03/20 0734 Benzonatate 100 Mg Capsule, 100 MG PO Q6H PRN for COUGH Prescribed by: SIRI TORRES on 02/03/20 0734 Cefadroxil 500 Mg Capsule, 500 MG PO BID Prescribed by: DANELLE CLARK on 03/24/191944 Cefdinir 300 Mg Capsule, 300 MG PO BID Prescribed by: SIRI TORRES on 02/03/20 0734 Cephalexin 500 Mg Capsule, 500 MG PO TID Prescribed by: KESHA WELLINGTON on 04/30/20 1436 Clopidogrel Bisulfate 75 Mg Tablet, 75 MG PO DAILY Prescribed by: RAPHAEL NEAL on 04/29/20 0937 Lisinopril 5 Mg Tablet, 5 MG PO DAILY Prescribed by: MAREN COONEY on 03/21/19 1158 Metoprolol Succinate 50 Mg Tab.er.24h, 50 MG PO DAILY Prescribed by: MAREN COONEY on 03/21/19 1158 Metoprolol Succinate 100 Mg Tab.er.24h, 100 MG PO DAILY Prescribed by: RAPHAEL NEAL on 04/29/20 0937 Ondansetron 4 Mg Tab.rapdis, 4 MG PO Q6H PRN for NAUSEA/VOMITING Prescribed by: SIRI TORRES on 02/03/20 0734 Oseltamivir Phosphate 75 Mg Cap, 75 MG PO BID Prescribed by: SIRI TORRES on 02/03/20 0842 Tramadol HCl 50 Mg Tablet, 50 MG PO Q6H PRN for PAIN Prescribed by: DANELLE CLARK on 03/24/19 1945 Tramadol HCl 50 Mg Tablet, 50 MG PO Q6H PRN for PAIN Prescribed by: KESHA WELLINGTON on 05/02/20 1627 Patient Home Medication List Home Medication List Reviewed: Yes (REMI THAKUR,) Home Medication List Reviewed: Yes (GISELLE HUGHES MD) Review of Systems Review of Systems Constitutional: diaphoresis; No fever Respiratory: Denies Cough; Shortness of Air Cardiovascular: Chest Pain Gastrointestinal: Denies Nausea, Denies Vomiting Genitourinary: No Symptoms Reported Musculoskeletal: no symptoms reported Skin: no symptoms reported Psychiatric/Neurological: No Symptoms Reported Endocrine: No Symptoms Reported Hematologic/Lymphatic: No Symptoms Reported (REMI THAKUR,) All Other Systems Reviewed Negative Unless Noted: Yes (GISELLE HUGHES MD) Past Ucccmsu-Jbagcp-Rlyxua Hx Past Med/Social Hx: Reviewed Nursing Past Med/Soc Hx (GISELLE HUGHES MD) Patient Social History Alcohol Beverage of Choice: Beer Drug of Choice: UDS Pos amphetamines/methamphetamines Type Used: Cigarettes 2nd Hand Smoke Exposure: Yes Recent Hopitalizations: No (REMI THAKUR,) Immunizations Up To Date Tetanus Booster (TDap): Less than 5yrs PED Vaccines UTD: Yes (REMI THAKUR,) Seasonal Allergies Seasonal Allergies: No (REMI THAKUR,) Past Medical History Surgeries: Yes (CARDIAC STENT X2) Appendectomy, Cardiac, Coronary Stent Respiratory: No Cardiac: Yes Heart Attack, Hypertension Neurological: No Genitourinary: No Gastrointestinal: No Musculoskeletal: No Endocrine: No HEENT: No Cancer: No Psychosocial: No Anxiety Integumentary: No Blood Disorders: No (REMI THAKUR,) Family Medical History Reviewed Nursing Family Hx (GISELLE HUGHES MD) Heart Disease (REMI THAKUR,) Heart Disease (GISELLE HUGHES MD) Physical Exam Vital Signs Vital Signs - First Documented 07/19/20 20:02 Temp 36.4 Pulse 98 Resp 18 B/P (MAP) 156/100 (118) Pulse Ox 100 O2 Delivery Room Air (GISELLE HUGHES MD) Vital Signs Capillary Refill : (REMI THAKUR,) Height, Weight, BMI Height: '" Weight: lbs. oz. kg; 26.00 BMI Method: General Appearance: WD/WN, Moderate Distress HEENT: Pharynx Normal Neck: Non Tender, Supple Respiratory: Lungs Clear, Normal Breath Sounds Cardiovascular: Regular Rate, Rhythm, No Murmur Gastrointestinal: Non Tender, Soft Extremity: Normal Inspection, Normal Range of Motion Neurologic/Psychiatric: Alert, Oriented x3 Skin: Normal Color, Diaphoresis (REMI THAKUR,) General Appearance: WD/WN, Moderate Distress HEENT: PERRL/EOMI, Pharynx Normal Neck: Non Tender, Supple Respiratory: Lungs Clear, Normal Breath Sounds Cardiovascular: Regular Rate, Rhythm, No Murmur Gastrointestinal: Non Tender, Soft Extremity: Non Tender, No Calf Tenderness, No Pedal Edema Neurologic/Psychiatric: Alert, Oriented x3 Skin: Normal Color, Diaphoresis (GISELLE HUGHES MD) Procedures/Interventions Suture Size: 4-0 (REMI THAKUR) Progress/Results/Core Measures Results/Orders Lab Results Laboratory Tests Test 07/19/20 20:05 Range/Units White Blood Count 11.4 H 4.3-11.0 10^3/uL Red Blood Count 5.41 4.35-5.85 10^6/uL Hemoglobin 16.3 13.3-17.7 G/DL Hematocrit 48 40-54 % Mean Corpuscular Volume 88 80-99 FL Mean Corpuscular Hemoglobin 30 25-34 PG Mean Corpuscular Hemoglobin Concent 34 32-36 G/DL Red Cell Distribution Width 12.4 10.0-14.5 % Platelet Count 314 130-400 10^3/uL Mean Platelet Volume 9.2 7.4-10.4 FL Immature Granulocyte % (Auto) 0 % Neutrophils (%) (Auto) 62 42-75 % Lymphocytes (%) (Auto) 26 12-44 % Monocytes (%) (Auto) 8 0-12 % Eosinophils (%) (Auto) 3 0-10 % Basophils (%) (Auto) 1 0-10 % Neutrophils # (Auto) 7.0 1.8-7.8 X 10^3 Lymphocytes # (Auto) 3.0 1.0-4.0 X 10^3 Monocytes # (Auto) 0.9 0.0-1.0 X 10^3 Eosinophils # (Auto) 0.4 H 0.0-0.3 10^3/uL Basophils # (Auto) 0.1 0.0-0.1 10^3/uL Immature Granulocyte # (Auto) 0.0 0.0-0.1 10^3/uL Prothrombin Time 13.0 12.2-14.7 SEC INR Comment 1.0 0.8-1.4 Activated Partial Thromboplast Time 26 24-35 SEC D-Dimer 0.22 0.00-0.49 UG/ML Sodium Level 138 135-145 MMOL/L Potassium Level 4.4 3.6-5.0 MMOL/L Chloride Level 102 98-107 MMOL/L Carbon Dioxide Level 27 21-32 MMOL/L Anion Gap 9 5-14 MMOL/L Blood Urea Nitrogen 14 7-18 MG/DL Creatinine 1.18 0.60-1.30 MG/DL Estimat Glomerular Filtration Rate > 60 BUN/Creatinine Ratio 12 Glucose Level 92 70-105 MG/DL Calcium Level 9.3 8.5-10.1 MG/DL Corrected Calcium 9.2 8.5-10.1 MG/DL Magnesium Level 2.1 1.6-2.4 MG/DL Total Bilirubin 0.6 0.1-1.0 MG/DL Aspartate Amino Transf (AST/SGOT) 60 H 5-34 U/L Alanine Aminotransferase (ALT/SGPT) 134 H 0-55 U/L Alkaline Phosphatase 113 40-136 U/L Myoglobin 131.4 H 10.0-92.0 NG/ML Troponin I < 0.30 <0.30 NG/ML Total Protein 7.6 6.4-8.2 GM/DL Albumin 4.1 3.2-4.5 GM/DL Lipase 24 8-78 U/L (GISELLE HUGHES MD) My Orders Orders - GISELLE HUGHES MD Cbc With Automated Diff (07/19/20 20:15) Magnesium (07/19/20 20:15) Chest 1 View Ap/Pa Only (07/19/20 20:15) Ekg Tracing (07/19/20 20:15) Comprehensive Metabolic Panel (07/19/20 20:15) Myoglobin Serum (07/19/20 20:15) Protime With Inr (07/19/20 20:15) Partial Thromboplastin Time (07/19/20 20:15) O2 (07/19/20 20:15) Monitor-Rhythm Ecg Trace Only (07/19/20 20:15) Lipid Panel (07/20/20 06:00) Nitroglycerin 0.4 Mg Btl 25's (Nitrostat (07/19/20 20:15) Ed Iv/Invasive Line Start (07/19/20 20:15) Lipase (07/19/20 20:15) Fibrin Degradation Products (07/19/20 20:15) Troponin I Fs (07/19/20 20:15) Enoxaparin Injection (Lovenox Injection) (07/19/20 21:30) Clopidogrel Tablet (Plavix Tablet) (07/19/20 21:45) (GISELLE HUGHES MD) Medications Given in ED Current Medications Medications Dose Ordered Sig/Yaneli Route Start Time Stop Time Status Last Admin Dose Admin Nitroglycerin 0.4 mg UD PRN SL 07/19/20 20:15 07/19/20 20:20 0.4 MG (GISELLE HUGHES MD) Vital Signs/I&O 07/19/20 20:02 Temp 36.4 Pulse 98 Resp 18 B/P (MAP) 156/100 (118) Pulse Ox 100 O2 Delivery Room Air (GISELLE HUGHES MD) Progress Progress Note : Time: 20:18 Progress Note EDUCATIONAL PSYCHOLOGY PROFESSOR, patient received aspirin 324mg, fentanyl 100mcg, and NTG x1. BP elevated to 156/100, which is reduced from previous. Will repeat another NTG. CBC, CMP, troponin, EKG, CXR pending. (REMI THAKUR,) Progress Note : Progress Note I have seen and evaluated the patient and agree with above except as indicated. I have directed the plan of care. Patient is here by EMS with report of chest pain. Patient was at the senior care and is currently under their care. Patient does have history of cardiac disease with previous stenting in 2019 and is under the care of Dr. Cooney. States he has not taken his medications including Plavix for 2 weeks. States he is on another medicine but does not remember and this appears to be lisinopril and atorvastatin. States pain feels like his previous heart problems when he had to get the stents placed. No nausea or vomiting but does have diaphoresis. EMS did give 324 aspirin, 1 sublingual nitroglycerin and 100 mcg of fentanyl for pain. Patient still reports pain on arrival but blood pressure apparently is improved from previously per EMS. Evaluation as above. Plan for chest pain protocol. Patient will likely require admission due to significant cardiac history and chest pain that feels like previous and currently off his meds after previous stent placement. Monitor patient. 2125: Labs reviewed as well as chest x-ray and EKG. Myoglobin slightly elevated. Troponin negative currently. Patient does have strong past history and previous stents and actually has been off his meds for a few months now with his last medication refill in February. Pain is better after nitro. I did discuss the case with Dr. Mccormick and he accepts patient for admission and consult. I did discuss the case with Dr. Cisneros and she accepts patient for admission, observation status. We will initiate Plavix 300 mg p.o. now as well as Lovenox 90 mg subcu. Patient to be admitted to cardiac stepdown. Patient and law enforcement informed and agree with plan. Patient to be transferred by EMS. (GISELLE HUGHES MD) Initial ECG Impression Date: Jul 19, 2020 Initial ECG Impression Time: 20:08 Initial ECG Rate: 91 Initial ECG Rhythm: Normal Sinus Comment Sinus rhythm with normal but rightward axis. No evidence of ST elevation [place]. Similar to 04/29/2020. Interpreted by me. (GISELLE HUGHES MD) Diagnostic Imaging Diagonstic Imaging: Xray Plain Films/CT/US/NM/MRI: chest Comments [facility]. [place], [place] NAME: GISELLE SMILEY JR [facility] REC#: [id number] PT STATUS: REG ER : 1985 PHYSICIAN: GISELLE HUGHES MD ADMIT DATE: 07/19/20/ER FS Draft Date of Exam:07/19/20 CHEST 1 VIEW AP/PA ONLY EXAMINATION: Chest 1 view HISTORY: chest pain COMPARISON: Chest radiograph 04/30/2020 FINDINGS: Heart size and pulmonary vasculature are normal. Low lung volumes without consolidation, pleural effusion, or pneumothorax. The osseous structures are intact. IMPRESSION: 1. No acute radiographic abnormality in the chest. Dictated on workstation # [id number] Dict: 07/19/202025 Trans: 07/19/202032 [facility] [id number] Interpreted by: KOURTNEY SOLITARIO DO Electronically signed by: Reviewed: Reviewed by Me (GISELLE HUGHES MD) Departure Communication (Admissions) Time/Spoke to Admitting Phy: 21:24 Time/Spoke to Consulting Phy: 21:26 (GISELLE HUGHES MD) Impression Primary Impression: Chest pain Qualified Codes: R07.9 - Chest pain, unspecified Additional Impression: Elevated myoglobin level Disposition: ADMITTED INPATIENT Condition: Stable Admissions Decision to Admit Reason: Admit from ER (General) Decision to Admit/Date: Jul 19, 2020 Time/Decision to Admit Time: 21:24 (GISELLE HUGHES MD) Departure-Patient Inst. Referrals: NO,LOCAL PHYSICIAN (PCP/Family) Primary Care Physician REMI THAKUR, Jul 19, 2020 20:17 GISELLE HUGHES MD Jul 19, 2020 20:41
[2020-07-19 20:23] LABS: BASOPHILS % (AUTO) 1 % (0-10); EOSINOPHILS % (AUTO) 3 % (0-10); HEMATOCRIT 48 % (40-54); HEMOGLOBIN 16.3 G/DL (13.3-17.7); LYMPHOCYTES % (AUTO) 26 % (12-44); MEAN CORPUSCULAR HEMOGLOBIN 30 PG (25-34); MEAN CORPUSCULAR HGB CONC 34 G/DL (32-36); MEAN CORPUSCULAR VOLUME 88 FL (80-99); MEAN PLATELET VOLUME 9.2 FL (7.4-10.4); MONOCYTES % (AUTO) 8 % (0-12); NEUTROPHILS % (AUTO) 62 % (42-75); PLATELET COUNT 314 10^3/uL (130-400); WHITE BLOOD COUNT 11.4 10^3/uL (4.3-11.0)
[2020-07-19 20:24] LABS: BASOPHILS # (AUTO) 0.1 10^3/uL (0.0-0.1); EOSINOPHILS # (AUTO) 0.4 10^3/uL (0.0-0.3); MONOCYTES # (AUTO) 0.9 X 10^3 (0.0-1.0)
--- NOTE | 2020-07-19 20:33 | Diagnostic Imaging Report ---
EXAMINATION: Chest 1 view HISTORY: chest pain COMPARISON: Chest radiograph 04/30/2020 FINDINGS: Heart size and pulmonary vasculature are normal. Low lung volumes without consolidation, pleural effusion, or pneumothorax. The osseous structures are intact. IMPRESSION: 1. No acute radiographic abnormality in the chest. Dictated by: Dictated on workstation # [id number]
[2020-07-19 20:42] LABS: CARBON DIOXIDE 27 MMOL/L (21-32); CHLORIDE 102 MMOL/L (98-107); POTASSIUM 4.4 MMOL/L (3.6-5.0); SODIUM 138 MMOL/L (135-145)
[2020-07-19 20:43] LABS: ALANINE AMINOTRANSFERASE 134 U/L (0-55); ALBUMIN 4.1 GM/DL (3.2-4.5); ALKALINE PHOSPHATASE 113 U/L (40-136); BILIRUBIN,TOTAL 0.6 MG/DL (0.1-1.0); BUN/CREATININE RATIO 12; CALCIUM 9.3 MG/DL (8.5-10.1); CREATININE SERUM 1.18 MG/DL (0.60-1.30); GFR ESTIMATED > 60; GLUCOSE 92 MG/DL (70-105); LIPASE 24 U/L (8-78); MAGNESIUM 2.1 MG/DL (1.6-2.4); TOTAL PROTEIN 7.6 GM/DL (6.4-8.2)
[2020-07-19] MEDS ORDERED: ENOXAPARIN 100 MG/1 ML (LOVENOX) SYR SC ONE (21:30)
[2020-07-19] MEDS ORDERED: CLOPIDOGREL 300 MG (PLAVIX) TABLET PO ONE (21:45)
[2020-07-19 22:50] VITALS: BP 146/99
[2020-07-19 23:00] VITALS: BP 152/115
[2020-07-19] MEDS ORDERED: NS IV 1000 ML 1,000 ML ONE (23:00)
[2020-07-19 23:15] VITALS: BP 158/97
[2020-07-19 23:30] VITALS: BP 182/112
[2020-07-19 23:45] VITALS: BP 204/121
[2020-07-19] MEDS ORDERED: ONDANSETRON 4 MG/2 ML (SDV) Z0FRAN IVP PRN (23:45)
[2020-07-19] MEDS ORDERED: morphine INJ 4 MG/ML 1 ML (VIAL/SYRINGE) IV PRN (23:45)
[2020-07-19] MEDS: NITROGLYCERIN 0.4 MG SL TABS BTL 25'S SL PRN (23:56)
[2020-07-19] MEDS: NS IV 1000 ML 1,000 ML IV SCH (23:56)
[2020-07-20] VITALS (12 sets, daily range): BP systolic 122–167; BP diastolic 79–116
[2020-07-20] MEDS: ACETAMINOPHEN 500 MG TAB (TYLENOL) PO PRN ×2 (00:21→05:10)
[2020-07-20 03:46] LABS: BASOPHILS # (AUTO) 0.1 10^3/uL (0.0-0.1); BASOPHILS % (AUTO) 1 % (0-10); EOSINOPHILS # (AUTO) 0.4 10^3/uL (0.0-0.3); EOSINOPHILS % (AUTO) 4 % (0-10); HEMATOCRIT 47 % (40-54); HEMOGLOBIN 15.7 g/dL (13.3-17.7); LYMPHOCYTES # (AUTO) 2.6 10^3/uL (1.0-4.0); LYMPHOCYTES % (AUTO) 31 % (12-44); MEAN CORPUSCULAR HEMOGLOBIN 30 pg (25-34); MEAN CORPUSCULAR HGB CONC 33 g/dL (32-36); MEAN CORPUSCULAR VOLUME 90 fL (80-99); MONOCYTES # (AUTO) 0.6 10^3/uL (0.0-1.0); MONOCYTES % (AUTO) 7 % (0-12); NEUTROPHILS # (AUTO) 4.8 10^3/uL (1.8-7.8); NEUTROPHILS % (AUTO) 56 % (42-75); PLATELET COUNT 237 10^3/uL (130-400); WHITE BLOOD COUNT 8.5 10^3/uL (4.3-11.0)
[2020-07-20 04:24] LABS: CHLORIDE 101 MMOL/L (98-107); POTASSIUM 3.7 MMOL/L (3.6-5.0); SODIUM 133 MMOL/L (135-145)
[2020-07-20 04:26] LABS: CALCIUM 8.4 MG/DL (8.5-10.1)
[2020-07-20 04:27] LABS: GLUCOSE 90 MG/DL (70-105); TRIGLYCERIDES 321 MG/DL (<150); VLDL CHOLESTEROL 64 MG/DL (5-40)
[2020-07-20 04:28] LABS: CARBON DIOXIDE 23 MMOL/L (21-32)
[2020-07-20 04:30] LABS: CREATININE SERUM 0.94 MG/DL (0.60-1.30); GFR ESTIMATED > 60
[2020-07-20 04:31] LABS: BUN/CREATININE RATIO 14
[2020-07-20 04:32] LABS: CHOLESTEROL 200 MG/DL (< 200); HDL CHOLESTEROL 44 MG/DL (40-60)
[2020-07-20] MEDS: NITROGLYCERIN 0.4 MG SL TABS BTL 25'S SL PRN ×2 (06:05→06:24)
[2020-07-20] MEDS: NS IV 1000 ML 1,000 ML IV SCH (07:09)
[2020-07-20] MEDS ORDERED: REGADENOSON 0.4 MG/5 ML SYR (LEXISCAN) IV ONE ×2 (08:45→11:31)
--- NOTE | 2020-07-20 08:56 | History & Physical ---
HPI History of Present Illness: Chest pain starting last night after dinner when he was walking around, he has a history of stenting twice in the past and has not been taking his cardiac medications for a couple of weeks due to finances and going to [facility]. He reports last meth last 2 weeks ago. He has a history of heavy alcohol use and states last drink was about a year ago, he has not been aware of liver problems in the past, states he had negative hepatitis testing about 6 months ago through correctional facility. Feeling better now but that required fentanyl. Source: patient Date seen by provider: Jul 20, 2020 Time Seen by Provider: 09:00 Attending Physician Jojo Cisneros DO PCP No,Local Physician Consult Date of Admission Jul 19, 2020 at 22:45 Home Medications Home Medications Reviewed patient Home Medication Reconciliation performed by pharmacy medication reconciliations dental technician and/or nursing. Patients Allergies have been reviewed. Allergies Coded Allergies: No Known Drug Allergies (Unverified , 01/09/19) YRU-Adcncy-Mushch Hx Patient Social History Drug of Choice: UDS Pos amphetamines/methamphetamines Smoking Status: Current Everyday Smoker 2nd Hand Smoke Exposure: Yes Recent Hopitalizations: No Alcohol Use?: No Tobacco type used: Cigarettes Have you traveled recently?: No Immunizations Up To Date Tetanus Booster (TDap): Less than 5yrs Past Medical History PMHx: Coronary artery disease Methamphetamine abuse PSurgHx: Cardiac stenting x 2 Appendectomy Family Medical History Significant Family History: Heart Disease Review of Systems ([facility]) Constitutional: diaphoresis; No fever Respiratory: No cough, No short of breath Cardiovascular: see HPI Gastrointestinal: No abdominal pain, No constipation, No diarrhea, No nausea, No vomiting Genitourinary: No dysuria Musculoskeletal: joint pain (chronic), muscle pain (chronic) Skin: No rash Psychiatric/Neurological: No Symptoms Reported Reviewed Test Results Reviewed Test Results Lab Laboratory Tests Test 07/19/20 20:05 07/20/20 03:33 07/20/20 03:35 Range/Units White Blood Count 11.4 H 8.5 4.3-11.0 10^3/uL Red Blood Count 5.41 5.23 4.30-5.52 10^6/uL Hemoglobin 16.3 15.7 13.3-17.7 g/dL Hematocrit 48 47 40-54 % Mean Corpuscular Volume 88 90 80-99 fL Mean Corpuscular Hemoglobin 30 30 25-34 pg Mean Corpuscular Hemoglobin Concent 34 33 32-36 g/dL Red Cell Distribution Width 12.4 12.1 10.0-14.5 % Platelet Count 314 237 130-400 10^3/uL Mean Platelet Volume 9.2 9.0 9.0-12.2 fL Immature Granulocyte % (Auto) 0 0 % Neutrophils (%) (Auto) 62 56 42-75 % Lymphocytes (%) (Auto) 26 31 12-44 % Monocytes (%) (Auto) 8 7 0-12 % Eosinophils (%) (Auto) 3 4 0-10 % Basophils (%) (Auto) 1 1 0-10 % Neutrophils # (Auto) 7.0 4.8 1.8-7.8 10^3/uL Lymphocytes # (Auto) 3.0 2.6 1.0-4.0 10^3/uL Monocytes # (Auto) 0.9 0.6 0.0-1.0 10^3/uL Eosinophils # (Auto) 0.4 H 0.4 H 0.0-0.3 10^3/uL Basophils # (Auto) 0.1 0.1 0.0-0.1 10^3/uL Immature Granulocyte # (Auto) 0.0 0.0 0.0-0.1 10^3/uL Prothrombin Time 13.0 12.2-14.7 SEC INR Comment 1.0 0.8-1.4 Activated Partial Thromboplast Time 26 24-35 SEC D-Dimer 0.22 0.00-0.49 UG/ML Sodium Level 138 133 L 135-145 MMOL/L Potassium Level 4.4 3.7 3.6-5.0 MMOL/L Chloride Level 102 101 98-107 MMOL/L Carbon Dioxide Level 27 23 21-32 MMOL/L Anion Gap 9 9 5-14 MMOL/L Blood Urea Nitrogen 14 13 7-18 MG/DL Creatinine 1.18 0.94 0.60-1.30 MG/DL Estimat Glomerular Filtration Rate > 60 > 60 BUN/Creatinine Ratio 12 14 Glucose Level 92 90 70-105 MG/DL Calcium Level 9.3 8.4 L 8.5-10.1 MG/DL Corrected Calcium 9.2 8.5-10.1 MG/DL Magnesium Level 2.1 1.6-2.4 MG/DL Total Bilirubin 0.6 0.1-1.0 MG/DL Aspartate Amino Transf (AST/SGOT) 60 H 5-34 U/L Alanine Aminotransferase (ALT/SGPT) 134 H 0-55 U/L Alkaline Phosphatase 113 40-136 U/L Myoglobin 131.4 H 10.0-92.0 NG/ML Troponin I < 0.30 < 0.028 <0.028 NG/ML Total Protein 7.6 6.4-8.2 GM/DL Albumin 4.1 3.2-4.5 GM/DL Lipase 24 8-78 U/L Triglycerides Level 321 H <150 MG/DL Cholesterol Level 200 < 200 MG/DL LDL Cholesterol Direct 130 H 1-129 MG/DL VLDL Cholesterol 64 H 5-40 MG/DL HDL Cholesterol 44 40-60 MG/DL Radiology CXR 07/19 with no acute abnormality Physical Exam-([facility]) Physical Exam Vital Signs VS - Last 72 Hours, by Label 07/19/20 07/19/20 07/19/20 07/19/20 20:00 20:02 21:43 22:48 Temp 36.4 Pulse 98 75 75 Resp 18 15 B/P (MAP) 156/100 (118) 152/99 Pulse Ox 100 100 100 O2 Delivery Room Air Room Air Room Air 07/19/20 07/19/20 07/19/20 07/19/20 22:50 23:00 23:00 23:15 Temp 36.2 Pulse 86 70 100 Resp 20 B/P (MAP) 146/99 (115) 152/115 (122) 158/97 (119) Pulse Ox 98 98 97 O2 Delivery Room Air Room Air Room Air Room Air 07/19/20 07/19/20 07/20/20 07/20/20 23:30 23:45 00:07 00:15 Pulse 70 74 71 63 B/P (MAP) 182/112 (136) 204/121 (146) 130/97 (106) 129/86 (101) Pulse Ox 100 100 96 O2 Delivery Room Air Room Air Room Air Room Air 07/20/20 07/20/20 07/20/20 07/20/20 00:30 00:45 01:00 01:00 Pulse 66 69 71 71 B/P (MAP) 141/85 (100) 142/80 (99) 132/79 (94) Pulse Ox 99 99 97 O2 Delivery Room Air Room Air Room Air 07/20/20 07/20/20 07/20/20 07/20/20 02:00 04:00 05:00 06:03 Pulse 72 68 B/P (MAP) 146/81 (102) 167/102 (123) 140/89 (106) 145/116 (126) Pulse Ox 100 97 O2 Delivery Room Air Room Air 07/20/20 07/20/20 07/20/20 07/20/20 06:10 06:20 07:58 08:00 Temp 36.4 B/P (MAP) 122/93 (103) 153/89 (110) O2 Delivery Room Air 07/20/20 07/20/20 07/20/20 08:00 08:04 11:54 Temp 36.6 Pulse 68 B/P (MAP) 146/99 (115) Pulse Ox 98 O2 Delivery Room Air Capillary Refill : Less Than 3 Seconds General Appearance: WD/WN, no apparent distress Respiratory: lungs clear, normal breath sounds Cardiovascular: regular rate, rhythm, no murmur Gastrointestinal: normal bowel sounds, non tender, soft Extremities: no pedal edema Neurologic/Psychiatric: alert, normal mood/affect Skin: warm/dry, tattoos/piercings Assessment/Plan Assessment/Plan Admission Status: Observation (1) Chest pain Status: Acute Assessment & Plan: With history of CAD and stenting, Cardiology consulted, plan for stress test. Troponin neg. Qualifiers: Qualified Codes: R07.9 - Chest pain, unspecified (2) Elevated liver enzymes Status: Acute Assessment & Plan: Note of intermittent elevation of last several months, suspect related to history of heavy alcohol use. Check hepatitis panel. (3) History of alcohol abuse Status: Chronic (4) History of methamphetamine abuse Status: Chronic (5) Coronary artery disease Status: Chronic Qualifiers: Qualified Codes: I25.110 - Atherosclerotic heart disease of [place] coronary artery with unstable angina pectoris (6) DVT prophylaxis Status: Acute Assessment & Plan: On treatment dose enoxaparin due to chest pain/high risk for acute CAD. Clinical Quality Measures AMI/AHF: ASA po Prior to arrival: Yes DENISE JAMES MD Jul 20, 2020 08:55
[2020-07-20] MEDS ORDERED: ASPIRIN E.C. 81 MG (ECOTRIN) TAB PO SCH (09:00)
[2020-07-20] MEDS ORDERED: CLOPIDOGREL 75 MG (PLAVIX) TABLET PO SCH (09:00)
[2020-07-20] MEDS ORDERED: ENOXAPARIN 100 MG/1 ML (LOVENOX) SYR SC SCH (09:00)
--- NOTE | 2020-07-20 09:04 | Consultation-Cardiology ---
HPI-Cardiology Cardiology Consultation Date of Consultation 07/20/20 Date of Admission Time Seen by Provider: 09:02 Indication: Chest pain HPI 35 years old gentleman with history of coronary artery disease, was in nursing home, started to have chest pain described as dull achiness on the left side of his chest radiating to the back and neck. On my evaluation was laying down in bed, comfortable, appears to have reproducible chest pain on the left side of his chest. No shortness of breath, has been noncompliant with his medication, did not take any medication for the past month. Home Medications & Allergies Allergies: Coded Allergies: No Known Drug Allergies (Unverified , 01/09/19) Home Medication List Reviewed: Yes BCR-Jvmvid-Cixbyl Hx Patient Social History Recreational Drug Use: Yes (Meth) Drug of Choice: UDS Pos amphetamines/methamphetamines Smoking Status: Current Everyday Smoker Type Used: Cigarettes 2nd Hand Smoke Exposure: Yes Recent Hopitalizations: No Have you traveled recently?: No Alcohol Use?: No Immunizations Up To Date Tetanus Booster (TDap): Less than 5yrs Past Medical History Discussed below Family Medical History Significant Family History: Heart Disease Review of Systems-General Review of Systems Constitutional: diaphoresis; No fever EENTM: see HPI, no symptoms reported Respiratory: see HPI; No cough, No dyspnea on exertion, No hemoptysis, No orthopnea, No phlegm, No short of breath, No stridor, No wheezing, No other Cardiovascular: see HPI, chest pain; No edema, No Hx of Intervention, No palpitations, No syncope, No vascular heart diseas, No other Gastrointestinal: no symptoms reported, see HPI Genitourinary: no symptoms reported, see HPI Musculoskeletal: no symptoms reported Skin: no symptoms reported Psychiatric/Neurological: No Symptoms Reported All Other Systems Reviewed Negative Unless Noted: Yes Reviewed Test Results Reviewed Test Results Lab Laboratory Tests Test 07/19/20 20:05 07/20/20 03:33 Range/Units White Blood Count 11.4 H 8.5 4.3-11.0 10^3/uL Red Blood Count 5.41 5.23 4.30-5.52 10^6/uL Hemoglobin 16.3 15.7 13.3-17.7 g/dL Hematocrit 48 47 40-54 % Mean Corpuscular Volume 88 90 80-99 fL Mean Corpuscular Hemoglobin 30 30 25-34 pg Mean Corpuscular Hemoglobin Concent 34 33 32-36 g/dL Red Cell Distribution Width 12.4 12.1 10.0-14.5 % Platelet Count 314 237 130-400 10^3/uL Mean Platelet Volume 9.2 9.0 9.0-12.2 fL Immature Granulocyte % (Auto) 0 0 % Neutrophils (%) (Auto) 62 56 42-75 % Lymphocytes (%) (Auto) 26 31 12-44 % Monocytes (%) (Auto) 8 7 0-12 % Eosinophils (%) (Auto) 3 4 0-10 % Basophils (%) (Auto) 1 1 0-10 % Neutrophils # (Auto) 7.0 4.8 1.8-7.8 10^3/uL Lymphocytes # (Auto) 3.0 2.6 1.0-4.0 10^3/uL Monocytes # (Auto) 0.9 0.6 0.0-1.0 10^3/uL Eosinophils # (Auto) 0.4 H 0.4 H 0.0-0.3 10^3/uL Basophils # (Auto) 0.1 0.1 0.0-0.1 10^3/uL Immature Granulocyte # (Auto) 0.0 0.0 0.0-0.1 10^3/uL Prothrombin Time 13.0 12.2-14.7 SEC INR Comment 1.0 0.8-1.4 Activated Partial Thromboplast Time 26 24-35 SEC D-Dimer 0.22 0.00-0.49 UG/ML Sodium Level 138 133 L 135-145 MMOL/L Potassium Level 4.4 3.7 3.6-5.0 MMOL/L Chloride Level 102 101 98-107 MMOL/L Carbon Dioxide Level 27 23 21-32 MMOL/L Anion Gap 9 9 5-14 MMOL/L Blood Urea Nitrogen 14 13 7-18 MG/DL Creatinine 1.18 0.94 0.60-1.30 MG/DL Estimat Glomerular Filtration Rate > 60 > 60 BUN/Creatinine Ratio 12 14 Glucose Level 92 90 70-105 MG/DL Calcium Level 9.3 8.4 L 8.5-10.1 MG/DL Corrected Calcium 9.2 8.5-10.1 MG/DL Magnesium Level 2.1 1.6-2.4 MG/DL Total Bilirubin 0.6 0.1-1.0 MG/DL Aspartate Amino Transf (AST/SGOT) 60 H 5-34 U/L Alanine Aminotransferase (ALT/SGPT) 134 H 0-55 U/L Alkaline Phosphatase 113 40-136 U/L Myoglobin 131.4 H 10.0-92.0 NG/ML Troponin I < 0.30 < 0.028 <0.028 NG/ML Total Protein 7.6 6.4-8.2 GM/DL Albumin 4.1 3.2-4.5 GM/DL Lipase 24 8-78 U/L Triglycerides Level 321 H <150 MG/DL Cholesterol Level 200 < 200 MG/DL LDL Cholesterol Direct 130 H 1-129 MG/DL VLDL Cholesterol 64 H 5-40 MG/DL HDL Cholesterol 44 40-60 MG/DL Physical Exam Physical Exam Vital Signs Vital Signs - First Documented 07/19/20 07/19/20 20:00 20:02 Temp 36.4 Pulse 98 Resp 18 B/P (MAP) 156/100 (118) Pulse Ox 100 O2 Delivery Room Air Capillary Refill : Less Than 3 Seconds Height, Weight, BMI Height: '" Weight: lbs. oz. kg; 26.59 BMI Method: General Appearance: WD/WN, Moderate Distress Eyes: Bilateral Eye Normal Inspection, Bilateral Eye PERRL, Bilateral Eye EOMI HEENT: PERRL/EOMI, Pharynx Normal Neck: Non Tender, Supple Respiratory: Lungs Clear, Normal Breath Sounds Cardiovascular: Regular Rate, Rhythm, No Murmur Gastrointestinal: Non Tender, Soft Back: Normal Inspection, No CVA Tenderness, No Vertebral Tenderness Extremity: Non Tender, No Calf Tenderness, No Pedal Edema Neurologic/Psychiatric: Alert, Oriented x3 Skin: Normal Color, Diaphoresis Lymphatic: No Adenopathy A/P-Cardiology Admission Diagnosis Chest pain Coronary artery disease Hypertension Hyperlipidemia Assessment/Plan Chest pain of undetermined etiology, no evidence of ACS, has history of coronary artery disease and stenting, planning to proceed with cardiac stress test today. H/ Ac inf wall ME on 03/20/19. 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 Other cors did not show significant dz. LVEF 50%. LVEDP 16 mmHg Chronic tobacco use. He has been advised to quit immediately and completely Quit methamphetamine use 2 yrs ago Echo of 03/21/19: LVEF 55-60%, inferoseptal hypokinesis, RVSP 21 mmHg Noncompliance, educated on compliance, expressed willing to be compliant with medication. Clinical Quality Measures AMI/AHF: ASA po Prior to arrival: Yes CATARINO CONWAY MD Jul 20, 2020 09:04
[2020-07-20] MEDS ORDERED: CATHETER FLUSH 10 ML SYR IV PRN (10:30)
[2020-07-20] MEDS ORDERED: SERT-413 PO ×2 (12:32→14:00)
--- NOTE | 2020-07-20 13:19 | Cardiology Stress Test Report ---
Stress Test Report Date of Procedure/Referring: Date of Procedure: Jul 20, 2020 PCP Johanna Craft MD Admitting Physician No,Local Physician Indications: Chest pain Baseline Blood Pressure: Blood Pressure Systolic: 146 Blood Pressure Diastolic: 99 Baseline Vitals Vital Signs Date Time Temp Pulse Resp B/P (MAP) Pulse Ox O2 Delivery O2 Flow Rate FiO2 07/19/20 20:00 100 Room Air 07/19/20 20:02 36.4 98 18 156/100 (118) Baseline EKG: Baseline EKG: NSR Summary After explaining the procedure to the patient, he signed a consent and then brought to the stress nuclear laboratory. Patient received 0.4 mg Lexiscan for stress test, ECG, heart rate and blood pressure were monitored continuously. Resting and stress dose of radio tracer were injected, imaging was acquired and reviewed in short axis, horizontal long axis and vertical long axis views. TID: 1.04 SSS: 0 SDS: 0 EF: 47 1. Patient tolerated Lexiscan well 2. No significant ischemia or infarction on SPECT images 3. Normal left ventricular size, EF 47% CATARINO CONWAY MD Jul 20, 2020 13:19
[2020-07-20] MEDS ORDERED: ATOR80TA76 PO ×2 (13:34→14:00)
[2020-07-20] MEDS ORDERED: LISI-729 PO ×2 (13:34→14:00)
[2020-07-20] MEDS ORDERED: CLOP75TA28 PO ×2 (13:34→14:00)
[2020-07-20] MEDS ORDERED: ASPI-1238 PO (14:00)
--- NOTE | 2020-07-20 14:03 | Discharge Summary ---
Discharge Summary Hospital Course Problems/Diagnosis: (1) Chest pain Status: Acute Assessment & Plan: With history of CAD and stenting, Cardiology consulted, stress test neg, troponin neg. Qualifiers: Qualified Codes: R07.9 - Chest pain, unspecified (2) Elevated liver enzymes Status: Acute Assessment & Plan: Note of intermittent elevation of last several months, suspect related to history of heavy alcohol use. Check hepatitis panel- pending at d/c. (3) History of alcohol abuse Status: Chronic (4) History of methamphetamine abuse Status: Chronic (5) Coronary artery disease Status: Chronic Qualifiers: Qualified Codes: I25.110 - Atherosclerotic heart disease of [place] coronary artery with unstable angina pectoris Hospital Course Date of Admission: Jul 19, 2020 at 22:45 Admission Diagnosis : Family Physician/Provider: Josefa,Local Physician Date of Discharge: 07/20/20 Discharge Diagnosis: See problem list Hospital Course: See problem list. Returned to group home after d/c, scripts sent to [facility] per group home request. Labs and Pending Lab Test: Laboratory Tests 07/19/20 20:05: White Blood Count 11.4H, Red Blood Count 5.41, Hemoglobin 16.3, Hematocrit 48, Mean Corpuscular Volume 88, Mean Corpuscular Hemoglobin 30, Mean Corpuscular Hemoglobin Concent 34, Red Cell Distribution Width 12.4, Platelet Count 314, Mean Platelet Volume 9.2, Immature Granulocyte % (Auto) 0, Neutrophils (%) (Auto) 62, Lymphocytes (%) (Auto) 26, Monocytes (%) (Auto) 8, Eosinophils (%) (Auto) 3, Basophils (%) (Auto) 1, Neutrophils # (Auto) 7.0, Lymphocytes # (Auto) 3.0, Monocytes # (Auto) 0.9, Eosinophils # (Auto) 0.4H, Basophils # (Auto) 0.1, Immature Granulocyte # (Auto) 0.0, Prothrombin Time 13.0, INR Comment 1.0, Act ivated Partial Thromboplast Time 26, D-Dimer 0.22, Sodium Level 138, Potassium Level 4.4, Chloride Level 102, Carbon Dioxide Level 27, Anion Gap 9, Blood Urea Nitrogen 14, Creatinine 1.18, Estimat Glomerular Filtration Rate > 60, BUN/Creatinine Ratio 12, Glucose Level 92, Calcium Level 9.3, Corrected Calcium 9.2, Magnesium Level 2.1, Total Bilirubin 0.6, Aspartate Amino Transf (AST/SGOT) 60H, Alanine Aminotransferase (ALT/SGPT) 134H, Alkaline Phosphatase 113, Myoglobin 131.4H, Troponin I < 0.30, Total Protein 7.6, Albumin 4.1, Lipase 24 07/20/20 03:33: White Blood Count 8.5, Red Blood Count 5.23, Hemoglobin 15.7, Hematocrit 47, Mean Corpuscular Volume 90, Mean Corpuscular Hemoglobin 30, Mean Corpuscular Hemoglobin Concent 33, Red Cell Distribution Width 12.1, Platelet Count 237, Mean Platelet Volume 9.0, Immature Granulocyte % (Auto) 0, Neutrophils (%) (Auto) 56, Lymphocytes (%) (Auto) 31, Monocytes (%) (Auto) 7, Eosinophils (%) (Auto) 4, Basophils (%) (Auto) 1, Neutrophils # (Auto) 4.8, Lymphocytes # (Auto) 2.6, Monocytes # (Auto) 0.6, Eosinophils # (Auto) 0.4H, Basophils # (Auto) 0.1, Immature Granulocyte # (Auto) 0.0, Sodium Level 133L, Potassium Level 3.7, Chloride Level 101, Carbon Dioxide Level 23, Anion Gap 9, Blood Urea Nitrogen 13, Creatinine 0.94, Estimat Glomerular Filtration Rate > 60, BUN/Creatinine Ratio 14, Glucose Level 90, Calcium Level 8.4L, Troponin I < 0.028, Triglycerides Level 321H, Cholesterol Level 200, LDL Cholesterol Direct 130H, VLDL Cholesterol 64H, HDL Cholesterol 44 07/20/20 03:35: Hepatitis A IgM Antibody [Pending], Hepatitis B Surface Antigen [Pending], Hepatitis B Core IgM Antibody [Pending], Hepatitis C Antibody [Pending] Home Meds Active Aspirin EC (Aspirin) 81 Mg Tablet.dr 81 Mg PO DAILY Atorvastatin Calcium 80 Mg Tablet 80 Mg PO HS Clopidogrel (Clopidogrel Bisulfate) 75 Mg Tablet 75 Mg PO DAILY LAST FILLED 02-24-2020 #30 Lisinopril 5 Mg Tablet 5 Mg PO DAILY Sertraline HCl 50 Mg Tablet 50 Mg PO DAILY Assessment/Pt DC Instructions Follow up after group home release. Discharge Diet: Cardiac Diet Activity as Tolerated: Yes Discharge Physical Examination Allergies: Coded Allergies: No Known Drug Allergies (Unverified , 9/19/19) Clinical Quality Measures AMI/AHF: ASA po Prior to arrival: Yes DENISE JAMES MD Jul 20, 2020 14:03
[2020-07-20 23:07] LABS: HEPATITIS C ANTIBODY C Reactive (Non-Reactive)
== END 2020-07-20 14:28 ==
LOC: EDUNIT# 20:00 → ER FS 20:00 → ICU 22:45
PROVIDERS: ADMIT Internal Medicine; ATTEND Family Medicine
DX: R07.2 Precordial pain (principal); I25.110 Atherosclerotic heart disease of native coronary artery with unstable angina pectoris; I10 Essential (primary) hypertension; E78.5 Hyperlipidemia, unspecified; R94.5 Abnormal results of liver function studies; F15.10 Other stimulant abuse, uncomplicated; F41.9 Anxiety disorder, unspecified; I21.9 Acute myocardial infarction, unspecified; F17.210 Nicotine dependence, cigarettes, uncomplicated; Z79.899 Other long term (current) drug therapy; Z79.82 Long term (current) use of aspirin; Z95.5 Presence of coronary angioplasty implant and graft
CPT/HCPCS: 36415; 71045; 78452; 80048; 80053; 80061; 80074; 83690; 83735; 83874; 84484 ×2; 85025 ×2; 85379; 85610; 85730; 93005 ×2; 93017; 93041; 99285; A9502

== ENCOUNTER 2021-11-09 11:55 | Emergency (ER) | payer SELFPAY ==
[~2021-11-09] VITALS: Ht 187 cm; Wt 91.0 kg
[~2021-11-09 11:55] MED LIST changes: +ASPI-1238 PO; -LISI-729 PO; +LISI5TAB20 PO; +SERT-413 PO
[2021-11-09] MEDS ORDERED: ASPIRIN 81 MG CHEW (CHILDREN'S ASA) PO ONE (12:15)
[2021-11-09] MEDS ORDERED: ANTACID SUSP 30 ML UDC (MYLANTA) PO ONE (12:15)
--- NOTE | 2021-11-09 12:23 | ED Cardiac General ---
History of Present Illness General Chief Complaint: Chest Pain Stated Complaint: CP Nursing Triage Note: PT TO [facility] WITH CC OF CHEST PAIN HX OF HEART ISSUES AND ANXIETY, 2 STENTS, LT UPPER CHEST PAIN STABBING, WAS GOING TO ALF AFTER COURT AND STARTED HAVING CHEST PAIN. HX OF METH USE IN THE PAST AND A FEW DAYS AGO. 162 MG ASA BY EMS. Source: patient, EMS Exam Limitations: no limitations History of Present Illness Date Seen by Provider: Nov 09, 2021 Time Seen by Provider: 12:00 Initial Comments 36-year-old male with past medical history of CAD with 2 stents, and use disorder coming in via EMS after he was patient report, was arrested by the police, and suddenly developed chest pain. This occurred over 30 minutes prior to arrival. It is constant, center of his chest, nonradiating, throbbing, moderate in intensity. He says this does not feel as bad as it was when he had a heart attack. He takes no medicines daily. He received daily aspirin by EMS. He says he last injected meth 2 days ago. He is otherwise denying any fever, shortness of breath, abdominal pain, nausea, vomiting, diarrhea, weakness, numbness, rash, or any other concerns denies any prior history of DVT or PE. Denies any lower leg swelling or pain, no recent surgery, no hemoptysis, no recent long travel. Allergies and Home Medications Allergies Coded Allergies: No Known Drug Allergies (Unverified , 01/09/19) Patient Home Medication List Home Medication List Reviewed: Yes Aspirin (Aspirin EC) 81 Mg Tablet.dr 81 MG PO DAILY Prescribed by: DENISE JAMES on 07/20/20 1400 Atorvastatin Calcium (Atorvastatin Calcium) 80 Mg Tablet, 80 MG PO HS Prescribed by: DENISE JAMES on 07/20/20 1400 Clopidogrel Bisulfate (Clopidogrel) 75 Mg Tablet, 75 MG PO DAILY Prescribed by: DENISE JAMES on 07/20/20 1400 Doxycycline Hyclate (Doxycycline Hyclate) 100 Mg Tablet, 100 MG PO BID Prescribed by: JOHNATHAN MUNSON on 11/09/21 1307 Lisinopril (Lisinopril) 5 Mg Tablet, 5 MG PO DAILY Prescribed by: DENISE JAMES on 07/20/20 1400 Sertraline HCl (Sertraline HCl) 50 Mg Tablet, 50 MG PO DAILY Prescribed by: DENISE JAMES on 07/20/20 1400 Review of Systems Review of Systems Constitutional: No fever EENTM: No Blurred Vision Respiratory: Denies Cough, Denies Shortness of Air Cardiovascular: Chest Pain Gastrointestinal: Denies Abdominal Pain Genitourinary: No Symptoms Reported Musculoskeletal: no symptoms reported Skin: no symptoms reported Psychiatric/Neurological: No Symptoms Reported Endocrine: No Symptoms Reported Hematologic/Lymphatic: No Symptoms Reported All Other Systems Reviewed Negative Unless Noted: Yes Past Ptvjbvg-Neasib-Wkpote Hx Patient Social History Tobacco Use?: Yes Tobacco type used: Cigarettes Smoking Status: Current Everyday Smoker Substance use?: Yes Substance type: Methamphetamine, Marijuana Alcohol Use?: No Immunizations Up To Date Tetanus Booster (TDap): Less than 5yrs PED Vaccines UTD: Yes Seasonal Allergies Seasonal Allergies: No Past Medical History Surgery/Hospitalization HX: APPENDIX, AMI WITH 2 STENTS, CAD, HX OF IV METH USE Surgeries: Yes (CARDIAC STENT X2) Appendectomy, Cardiac, Coronary Stent Respiratory: No Cardiac: Yes Heart Attack, Hypertension Neurological: No Genitourinary: No Gastrointestinal: No Musculoskeletal: No Endocrine: No HEENT: No Cancer: No Psychosocial: No Anxiety Integumentary: No Blood Disorders: No Family Medical History Heart Disease Physical Exam Vital Signs Vital Signs - First Documented 11/09/21 12:06 Temp 36.6 Pulse 89 Resp 18 B/P (MAP) 168/105 (126) Pulse Ox 100 O2 Delivery Room Air Capillary Refill : Less Than 3 Seconds Height, Weight, BMI Height: '" Weight: lbs. oz. kg; 26.00 BMI Method: General Appearance: No Apparent Distress, WD/WN HEENT: PERRL/EOMI, Normal ENT Inspection, Pharynx Normal Neck: Full Range of Motion, Normal Inspection, Non Tender, Supple Respiratory: Chest Non Tender, Lungs Clear, Normal Breath Sounds, No Accessory Muscle Use, No Respiratory Distress Cardiovascular: Regular Rate, Rhythm, No Edema, Normal Peripheral Pulses Gastrointestinal: Normal Bowel Sounds, Non Tender, Soft; No Distended, No Guarding Extremity: Normal Capillary Refill, Normal Inspection, Normal Range of Motion, Non Tender, No Calf Tenderness, No Pedal Edema Neurologic/Psychiatric: Alert, No Motor/Sensory Deficits, Normal Mood/Affect Skin: Normal Color, Warm/Dry Lymphatic: No Adenopathy Procedures/Interventions Suture Size: 4-0 Progress/Results/Core Measures Results/Orders Lab Results Laboratory Tests Test 11/09/21 12:20 11/09/21 13:44 Range/Units White Blood Count 8.6 4.3-11.0 10^3/uL Red Blood Count 5.37 4.30-5.52 10^6/uL Hemoglobin 16.2 13.3-17.7 g/dL Hematocrit 48 40-54 % Mean Corpuscular Volume 89 80-99 fL Mean Corpuscular Hemoglobin 30 25-34 pg Mean Corpuscular Hemoglobin Concent 34 32-36 g/dL Red Cell Distribution Width 12.0 10.0-14.5 % Platelet Count 254 130-400 10^3/uL Mean Platelet Volume 9.2 9.0-12.2 fL Immature Granulocyte % (Auto) 0 % Neutrophils (%) (Auto) 52 42-75 % Lymphocytes (%) (Auto) 26 12-44 % Monocytes (%) (Auto) 8 0-12 % Eosinophils (%) (Auto) 13 H 0-10 % Basophils (%) (Auto) 1 0-10 % Neutrophils # (Auto) 4.5 1.8-7.8 10^3/uL Lymphocytes # (Auto) 2.3 1.0-4.0 10^3/uL Monocytes # (Auto) 0.7 0.0-1.0 10^3/uL Eosinophils # (Auto) 1.1 H 0.0-0.3 10^3/uL Basophils # (Auto) 0.1 0.0-0.1 10^3/uL Immature Granulocyte # (Auto) 0.0 0.0-0.1 10^3/uL Neutrophils % (Manual) 51 % Lymphocytes % (Manual) 22 % Monocytes % (Manual) 6 % Eosinophils % (Manual) 18 % Basophils % (Manual) 0 % Band Neutrophils 3 % Blood Morphology Comment NORMAL Prothrombin Time 12.9 12.2-14.7 SEC INR Comment 0.9 0.8-1.4 Activated Partial Thromboplast Time 30 24-35 SEC Sodium Level 141 135-145 MMOL/L Potassium Level 3.9 3.6-5.0 MMOL/L Chloride Level 103 98-107 MMOL/L Carbon Dioxide Level 25 21-32 MMOL/L Anion Gap 13 5-14 MMOL/L Blood Urea Nitrogen 12 7-18 MG/DL Creatinine 1.03 0.60-1.30 MG/DL Estimat Glomerular Filtration Rate 97 BUN/Creatinine Ratio 12 Glucose Level 92 70-105 MG/DL Calcium Level 9.3 8.5-10.1 MG/DL Corrected Calcium 9.1 8.5-10.1 MG/DL Magnesium Level 2.2 1.6-2.4 MG/DL Total Bilirubin 0.4 0.1-1.0 MG/DL Aspartate Amino Transf (AST/SGOT) 32 5-34 U/L Alanine Aminotransferase (ALT/SGPT) 49 0-55 U/L Alkaline Phosphatase 100 40-136 U/L Troponin I < 0.028 < 0.028 <0.028 NG/ML Total Protein 8.3 H 6.4-8.2 GM/DL Albumin 4.2 3.2-4.5 GM/DL My Orders Orders - JOHNATHAN MUNSON MD Ekg Tracing (11/09/21 12:07) Cbc With Automated Diff (11/09/21 12:15) Magnesium (11/09/21 12:15) Chest 1 View, Ap/Pa Only (11/09/21 12:15) Ekg Tracing (11/09/21 12:15) Comprehensive Metabolic Panel (11/09/21 12:15) Protime With Inr (11/09/21 12:15) Partial Thromboplastin Time (11/09/21 12:15) O2 (11/09/21 12:15) Monitor-Rhythm Ecg Trace Only (11/09/21 12:15) Ed Iv/Invasive Line Start (11/09/21 12:15) Troponin I [place] (11/09/21 12:15) Aspirin Chewable Tablet (Baby Aspirin Ch (11/09/21 12:15) Antacid Suspension (Mylanta Suspension (11/09/21 12:15) Troponin I [place] (11/09/21 13:45) General/Regular (11/09/21 Lunch) Manual Differential (11/09/21 12:20) Medications Given in ED Current Medications Medications Dose Ordered Sig/Yaneli Route Start Time Stop Time Status Last Admin Dose Admin Al Hydrox/Mg Hydrox/Simethicone 30 ml ONCE ONCE PO 11/09/21 12:15 11/09/21 12:17 DC 11/09/21 12:24 30 ML Aspirin 162 mg ONCE ONCE PO 11/09/21 12:15 11/09/21 12:17 DC 11/09/21 12:24 162 MG Vital Signs/I&O 11/09/21 12:06 Temp 36.6 Pulse 89 Resp 18 B/P (MAP) 168/105 (126) Pulse Ox 100 O2 Delivery Room Air Blood Pressure Mean: 126 Progress Progress Note : Progress Note 36-year-old male with above history coming in due to chest pain. ABCs were intact and vitals were stable on presentation. Physical exam reassuring with no focal abnormalities. He is low risk for PE per Hope criteria and is PERC negative effectively ruling out PE. EKG with no acute ischemic changes. Initial troponin negative, we will get a repeat. Given full dose aspirin already. Also given Maalox to see if that would help. His pain is virtually gone at this point on reassessment. Chest x-ray with very subtle potential opacities in the right midlung. He is not having any cough, congestion, fever, or any other infectious symptoms, but given the chest discomfort could be an atypical symptom, we will start him on a short course of doxycycline. Repeat troponin negative. Patient continues to do well and is now pain-free. I believe he stable for discharge with outpatient follow-up. He was sent home with strict return precautions Initial ECG Impression Date: Nov 09, 2021 Initial ECG Impression Time: 12:13 Initial ECG Rate: 85 Initial ECG Rhythm: Normal Sinus Comment Narrow QRS, normal axis, no significant ST changes or T wave abnormalities Diagnostic Imaging Diagonstic Imaging: Xray Plain Films/CT/US/NM/MRI: chest Comments [email or web address]=[id number]&pqnyvqWCS=[id number]&[id number]&URipwJwrjbaa=[id number]&DDsrcPatie lnOQO=[id number]&ERQts=[id number]&&D DSeriesType=0&dataSource=VCPX&DDDataSource=VCPX&Source=SNA&DDSopClassUid=[id number]&DDFrameOfRef=&DDModality=DX &DDSeriesIUID=[id number]&DDFirstSO [id number]=[id number] Departure Impression Primary Impression: Opacity of lung on imaging study Additional Impression: Chest pain Qualified Codes: R07.82 - Intercostal pain Disposition: 01 HOME, SELF-CARE Condition: Stable Departure-Patient Inst. Decision time for Depature: 14:19 Referrals: MAREN COONEY MD FACP [facility] NO,LOCAL PHYSICIAN (PCP) Primary Care Physician Patient Instructions: Chest Pain, Adult ED Add. Discharge Instructions: It is possible you have a very subtle small developing infection in your right lung. We will start you on antibiotics twice a day for the next 5 days. 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 Dr. Cooney is who placed your stents here in 2019 and would be good to call for follow up. His number is in this paperwork. Scripts Doxycycline Hyclate (Doxycycline Hyclate) 100 Mg Tablet 100 MG PO BID for 5 Days, #10 TAB 0 Refills Prov: JOHNATHAN MUNSON MD 11/09/21 Work/School Note: Work Release Form Date Seen in the Emergency Department: Nov 09, 2021 Return to Work: Nov 10, 2021 Restrictions: No Restrictions JOHNATHAN MUNSON MD Nov 09, 2021 12:23
[2021-11-09 12:32] LABS: BASOPHILS # (AUTO) 0.1 10^3/uL (0.0-0.1); BASOPHILS % (AUTO) 1 % (0-10); EOSINOPHILS # (AUTO) 1.1 10^3/uL (0.0-0.3); EOSINOPHILS % (AUTO) 13 % (0-10); HEMATOCRIT 48 % (40-54); HEMOGLOBIN 16.2 g/dL (13.3-17.7); LYMPHOCYTES # (AUTO) 2.3 10^3/uL (1.0-4.0); LYMPHOCYTES % (AUTO) 26 % (12-44); MEAN CORPUSCULAR HEMOGLOBIN 30 pg (25-34); MEAN CORPUSCULAR HGB CONC 34 g/dL (32-36); MEAN CORPUSCULAR VOLUME 89 fL (80-99); MEAN PLATELET VOLUME 9.2 fL (9.0-12.2); MONOCYTES # (AUTO) 0.7 10^3/uL (0.0-1.0); MONOCYTES % (AUTO) 8 % (0-12); NEUTROPHILS # (AUTO) 4.5 10^3/uL (1.8-7.8); NEUTROPHILS % (AUTO) 52 % (42-75); PLATELET COUNT 254 10^3/uL (130-400); WHITE BLOOD COUNT 8.6 10^3/uL (4.3-11.0)
[2021-11-09 12:44] LABS: ALBUMIN 4.2 GM/DL (3.2-4.5); POTASSIUM 3.9 MMOL/L (3.6-5.0)
[2021-11-09 12:45] LABS: CALCIUM 9.3 MG/DL (8.5-10.1)
[2021-11-09 12:46] LABS: TOTAL PROTEIN 8.3 GM/DL (6.4-8.2)
[2021-11-09 12:48] LABS: BILIRUBIN,TOTAL 0.4 MG/DL (0.1-1.0)
[2021-11-09 12:49] LABS: INR 0.9 (0.8-1.4); PROTHROMBIN TIME PATIENT 12.9 SEC (12.2-14.7)
--- NOTE | 2021-11-09 12:49 | Diagnostic Imaging Report ---
EXAM: CHEST 1 VIEW, AP/PA ONLY INDICATION: Chest pain. COMPARISON: Chest radiograph 07/19/2020. FINDINGS: Normal heart size and central pulmonary vascularity. Subtle patchy airspace opacities in the right midlung. No pleural effusion or pneumothorax. No acute osseous findings IMPRESSION: Subtle airspace opacities in the right midlung could represent an early/mild pneumonitis. Chest is otherwise negative. Dictated by: Dictated on workstation # [id number]
[2021-11-09 12:50] LABS: CREATININE SERUM 1.03 MG/DL (0.60-1.30)
[2021-11-09 12:53] LABS: MAGNESIUM 2.2 MG/DL (1.6-2.4)
[2021-11-09 13:05] LABS: BAND NEUTROPHILS 3 %; LYMPHOCYTES % (MANUAL) 22 %; MONOCYTES % (MANUAL) 6 %; NEUTROPHILS % (MANUAL) 51 %
[2021-11-09 13:06] LABS: BASOPHILS % (MANUAL) 0 %; EOSINOPHILS % (MANUAL) 18 %; RBC MORPH NORMAL
[2021-11-09] MEDS ORDERED: DOXY100T2 PO (13:07)
[2021-11-09] MEDS ORDERED: DOXYCYCLINE 100 MG (VIBRAMYCIN) TABLET PO STA (14:19)
[2021-11-09 14:30] VITALS: BP 155/93
== END 2021-11-09 14:30 | disposition home or self-care (01) ==
LOC: EDUNIT# 11:55 → ER 12:05
DX: R07.89 Other chest pain (principal); R91.8 Other nonspecific abnormal finding of lung field; F17.210 Nicotine dependence, cigarettes, uncomplicated; Z86.79 Personal history of other diseases of the circulatory system; Z79.82 Long term (current) use of aspirin; Z28.310 Unvaccinated for COVID-19
CPT/HCPCS: 36415; 71045; 80053; 83735; 84484; 85007; 85027; 85610; 85730; 93005; 93041

== ENCOUNTER 2022-05-25 15:54 | Emergency (ER) | payer SELFPAY ==
[~2022-05-25] VITALS: Ht 187 cm; Wt 86.0 kg
[~2022-05-25 15:54] MED LIST changes: +DOXY100T2 PO
[2022-05-25 15:55] VITALS: BP 155/106
--- NOTE | 2022-05-25 16:15 | ED Chest Pain ---
General Chief Complaint: Chest Pain Stated Complaint: CHEST PAIN Nursing Triage Note: PT CO OF CHEST PAIN ARRIVED PER EMS, PT STATES PAIN STARTED 30MIN AGO, PT HAS SOA, PT USED METH APPROX 3 DAYS AGO. PT WAS TAKEN TO EMS STATION BY [employer] FOR C/P 10/30 WHEN PICKED UP FOR ARREST [facility]. PT WAS GIVEN 325MG ASA AND NITRO PASTE 1". Source: patient Exam Limitations: no limitations History of Present Illness Date Seen by Provider: May 25, 2022 Time Seen by Provider: 16:00 Initial Comments Patient is a 37-year-old male who presents to the emergency department via EMS for evaluation of chest pain that began approximately 30 minutes prior to arrival. Patient also endorses some mild shortness of air. Patient also states he uses meth with the last use approximately 3 days ago. Patient was taken to the EMS station by police. Patient was in police custody due to some existing warrants. Patient was given 325 mg of aspirin as well as an inch of Nitropaste by EMS. Patient denies any other symptoms at this time. Patient endorses a history of [place] in the past that required stenting. Allergies and Home Medications Allergies Coded Allergies: No Known Drug Allergies (Unverified , 01/09/19) Patient Home Medication List Home Medication List Reviewed: Yes Aspirin (Aspirin EC) 81 Mg Tablet.dr, 81 MG PO DAILY Prescribed by: DENISE JAMES on 07/20/20 1400 Atorvastatin Calcium (Atorvastatin Calcium) 80 Mg Tablet, 80 MG PO HS Prescribed by: DENISE JAMES on 07/20/20 1400 Clopidogrel Bisulfate (Clopidogrel) 75 Mg Tablet, 75 MG PO DAILY Prescribed by: DENISE JAMES on 07/20/20 1400 Doxycycline Hyclate (Doxycycline Hyclate) 100 Mg Tablet, 100 MG PO BID Prescribed by: JOHNATHAN MUNSON on 11/09/21 1307 Lisinopril (Lisinopril) 5 Mg Tablet, 5 MG PO DAILY Prescribed by: DENISE JAMES on 07/20/20 1400 Sertraline HCl (Sertraline HCl) 50 Mg Tablet, 50 MG PO DAILY Prescribed by: DENISE JAMES on 07/20/20 1400 Review of Systems Review of Systems Constitutional: no symptoms reported EENTM: No Symptoms Reported Respiratory: No Symptoms Reported Cardiovascular: See HPI, Chest Pain Gastrointestinal: No Symptoms Reported Genitourinary: No Symptoms Reported Musculoskeletal: no symptoms reported Skin: no symptoms reported Psychiatric/Neurological: No Symptoms Reported Endocrine: No Symptoms Reported Hematologic/Lymphatic: No Symptoms Reported Past Glllray-Uudnxd-Lqfxir Hx Patient Social History Tobacco Use?: Yes Smoking Status: Current Everyday Smoker Substance use?: Yes Substance type: Methamphetamine Substance frequency: Daily Alcohol Use?: No Pt feels they are or have been: No Immunizations Up To Date Tetanus Booster (TDap): Less than 5yrs PED Vaccines UTD: Yes Seasonal Allergies Seasonal Allergies: No Past Medical History Surgery/Hospitalization HX: APPENDIX, AMI WITH 2 STENTS, CAD, HX OF IV METH USE, HTN Surgeries: Yes (CARDIAC STENT X2) Appendectomy, Cardiac, Coronary Stent Respiratory: No Cardiac: Yes Heart Attack, Hypertension Neurological: No Genitourinary: No Gastrointestinal: No Musculoskeletal: No Endocrine: No HEENT: No Cancer: No Psychosocial: No Anxiety Integumentary: No Blood Disorders: No Family Medical History Heart Disease Physical Exam Vital Signs Vital Signs - First Documented 05/25/22 15:55 Temp 35.8 Pulse 90 Resp 16 B/P (MAP) 155/106 (122) Pulse Ox 99 Capillary Refill : Less Than 3 Seconds Height, Weight, BMI Height: '" Weight: lbs. oz. kg; 24.00 BMI Method: General Appearance: No Apparent Distress, WD/WN HEENT: PERRL/EOMI, TMs Normal, Normal ENT Inspection, Pharynx Normal Neck: Full Range of Motion, Normal Inspection, Non Tender, Supple Respiratory: Chest Non Tender, Lungs Clear, Normal Breath Sounds, No Accessory Muscle Use, No Respiratory Distress Cardiovascular: Regular Rate, Rhythm, Normal Peripheral Pulses Gastrointestinal: Non Tender, Soft Extremity: Non Tender, No Calf Tenderness Neurologic/Psychiatric: Alert, Oriented x3, No Motor/Sensory Deficits, Normal Mood/Affect Skin: Normal Color, Warm/Dry Procedures/Interventions Suture Size: 4-0 Progress/Results/Core Measures Results/Orders Lab Results Laboratory Tests Test 05/25/22 16:12 Range/Units White Blood Count 10.8 4.3-11.0 10^3/uL Red Blood Count 5.39 4.30-5.52 10^6/uL Hemoglobin 16.9 13.3-17.7 g/dL Hematocrit 48 40-54 % Mean Corpuscular Volume 89 80-99 fL Mean Corpuscular Hemoglobin 31 25-34 pg Mean Corpuscular Hemoglobin Concent 35 32-36 g/dL Red Cell Distribution Width 11.5 10.0-14.5 % Platelet Count 234 130-400 10^3/uL Mean Platelet Volume 9.1 9.0-12.2 fL Immature Granulocyte % (Auto) 0 % Neutrophils (%) (Auto) 72 42-75 % Lymphocytes (%) (Auto) 16 12-44 % Monocytes (%) (Auto) 8 0-12 % Eosinophils (%) (Auto) 3 0-10 % Basophils (%) (Auto) 1 0-10 % Neutrophils # (Auto) 7.8 1.8-7.8 10^3/uL Lymphocytes # (Auto) 1.7 1.0-4.0 10^3/uL Monocytes # (Auto) 0.9 0.0-1.0 10^3/uL Eosinophils # (Auto) 0.3 0.0-0.3 10^3/uL Basophils # (Auto) 0.1 0.0-0.1 10^3/uL Immature Granulocyte # (Auto) 0.0 0.0-0.1 10^3/uL Prothrombin Time 12.7 12.2-14.7 SEC INR Comment 0.9 0.8-1.4 Activated Partial Thromboplast Time 28 24-35 SEC Sodium Level 138 135-145 MMOL/L Potassium Level 4.0 3.6-5.0 MMOL/L Chloride Level 101 98-107 MMOL/L Carbon Dioxide Level 25 21-32 MMOL/L Anion Gap 12 5-14 MMOL/L Blood Urea Nitrogen 13 7-18 MG/DL Creatinine 1.15 0.60-1.30 MG/DL Estimat Glomerular Filtration Rate 85 BUN/Creatinine Ratio 11 Glucose Level 73 70-105 MG/DL Calcium Level 9.8 8.5-10.1 MG/DL Corrected Calcium 9.6 8.5-10.1 MG/DL Magnesium Level 2.2 1.6-2.4 MG/DL Total Bilirubin 0.7 0.1-1.0 MG/DL Aspartate Amino Transf (AST/SGOT) 64 H 5-34 U/L Alanine Aminotransferase (ALT/SGPT) 114 H 0-55 U/L Alkaline Phosphatase 92 40-136 U/L Myoglobin 99.9 H 10.0-92.0 NG/ML Troponin I < 0.028 <0.028 NG/ML Total Protein 9.0 H 6.4-8.2 GM/DL Albumin 4.3 3.2-4.5 GM/DL My Orders Orders - MARCUS CA MAT REPAIRER Cbc With Automated Diff (05/25/22 15:59) Magnesium (05/25/22 15:59) Chest 1 View, Ap/Pa Only (05/25/22 15:59) Ekg Tracing (05/25/22 15:59) Comprehensive Metabolic Panel (05/25/22 15:59) Myoglobin Serum (05/25/22 15:59) Protime With Inr (05/25/22 15:59) Partial Thromboplastin Time (05/25/22 15:59) O2 (05/25/22 15:59) Monitor-Rhythm Ecg Trace Only (05/25/22 15:59) Ed Iv/Invasive Line Start (05/25/22 15:59) Troponin I [place] (05/25/22 15:59) Hand, Right, 3 Views (05/25/22 16:18) Vital Signs/I&O 05/25/22 15:55 Temp 35.8 Pulse 90 Resp 16 B/P (MAP) 155/106 (122) Pulse Ox 99 Blood Pressure Mean: 122 Progress Progress Note : Progress Note Patient is nontoxic and well-hydrated on exam. Vital signs are reassuring. Patient does have some tenderness to palpation in his chest along the costochondral cartilage on the upper right sternal border. No increase in pain with deep inspiration. No adventitious lung sounds or increased work of breathing noted on exam. Chest pain work-up ordered including CBC, CMP, EKG, chest x-ray, troponin. EKG without any acute ischemic change or arrhythmia. EKG is largely unchanged from prior. CBC without any significant abnormalities. CMP without any significant metabolic derangements. Chest x-ray is acutely negative. Initial troponin is not elevated. I updated the patient that we would need to obtain a second troponin at approximately 3 hours after the pain started to ensure it is not trending upward. Sometime after this conversation occurred patient eloped from the emergency department without notifying any staff. I was not able to speak to the patient prior to him leaving the emergency department. Nursing staff states patient left with his IV in place and thus police were notified so the patient could be found and the IV discontinued. EKG : EKG Time: 15:57 Rate: 96 Rhythm: Normal Sinus ECG Comparisson: Unchanged Comment High amplitude T waves in V2 and V3; nonspecific ST changes in V2 and V3; these findings consistent with EKG dated November 09, 2021 Departure Impression Primary Impression: Eloped from emergency department Additional Impression: Chest pain Qualified Codes: R07.9 - Chest pain, unspecified Disposition: 07 AGAINST MEDICAL ADVICE Condition: Against Medical Advice (eloped from ED without notifying staff) Departure-Patient Inst. Referrals: NO,LOCAL PHYSICIAN (PCP/Family) Primary Care Physician MARCUS CA APRN May 25, 2022 16:15
[2022-05-25 16:20] LABS: BASOPHILS # (AUTO) 0.1 10^3/uL (0.0-0.1); BASOPHILS % (AUTO) 1 % (0-10); EOSINOPHILS # (AUTO) 0.3 10^3/uL (0.0-0.3); EOSINOPHILS % (AUTO) 3 % (0-10); HEMATOCRIT 48 % (40-54); HEMOGLOBIN 16.9 g/dL (13.3-17.7); LYMPHOCYTES # (AUTO) 1.7 10^3/uL (1.0-4.0); LYMPHOCYTES % (AUTO) 16 % (12-44); MEAN CORPUSCULAR HEMOGLOBIN 31 pg (25-34); MEAN CORPUSCULAR HGB CONC 35 g/dL (32-36); MEAN CORPUSCULAR VOLUME 89 fL (80-99); MEAN PLATELET VOLUME 9.1 fL (9.0-12.2); MONOCYTES # (AUTO) 0.9 10^3/uL (0.0-1.0); MONOCYTES % (AUTO) 8 % (0-12); NEUTROPHILS # (AUTO) 7.8 10^3/uL (1.8-7.8); NEUTROPHILS % (AUTO) 72 % (42-75); PLATELET COUNT 234 10^3/uL (130-400); WHITE BLOOD COUNT 10.8 10^3/uL (4.3-11.0)
--- NOTE | 2022-05-25 16:25 | Diagnostic Imaging Report ---
Indication: Chest pain. Compared: 11/09/2021 Findings: Lungs are clear. No failure, effusion or pneumothorax. Impression: No acute-appearing abnormality. Dictated by: Dictated on workstation # [id number]
[2022-05-25 16:32] LABS: ALBUMIN 4.3 GM/DL (3.2-4.5)
[2022-05-25 16:33] LABS: INR 0.9 (0.8-1.4); PROTHROMBIN TIME PATIENT 12.7 SEC (12.2-14.7)
[2022-05-25 16:34] LABS: CALCIUM 9.8 MG/DL (8.5-10.1)
--- NOTE | 2022-05-25 16:35 | Diagnostic Imaging Report ---
INDICATION: Punched wall, right hand pain. AP, oblique, and lateral views of the right hand are obtained. FINDINGS: No fracture or acute bony abnormality is seen. Joint spaces are unremarkable. IMPRESSION: Negative right hand. Dictated by: Dictated on workstation # [id number]
[2022-05-25 16:37] LABS: BILIRUBIN,TOTAL 0.7 MG/DL (0.1-1.0)
[2022-05-25 16:38] LABS: CREATININE SERUM 1.15 MG/DL (0.60-1.30)
[2022-05-25 16:41] LABS: MAGNESIUM 2.2 MG/DL (1.6-2.4)
== END 2022-05-25 17:23 | disposition left against medical advice (07) ==
LOC: EDUNIT# 15:54 → ER 15:55
DX: R07.2 Precordial pain (principal); F17.200 Nicotine dependence, unspecified, uncomplicated
CPT/HCPCS: 36415; 71045; 73130; 80053; 83735; 83874; 84484; 85025; 85610; 85730; 93005; 93041

== ENCOUNTER 2022-06-04 16:45 | Emergency (ER) | payer SELFPAY ==
[~2022-06-04] VITALS: Ht 187.9 cm; Wt 90.7 kg
[2022-06-04 16:47] VITALS: BP 127/97
[2022-06-04 17:07] LABS: BASOPHILS # (AUTO) 0.1 10^3/uL (0.0-0.1); BASOPHILS % (AUTO) 1 % (0-10); EOSINOPHILS # (AUTO) 0.4 10^3/uL (0.0-0.3); EOSINOPHILS % (AUTO) 4 % (0-10); HEMATOCRIT 44 % (40-54); HEMOGLOBIN 14.8 g/dL (13.3-17.7); LYMPHOCYTES # (AUTO) 2.7 10^3/uL (1.0-4.0); LYMPHOCYTES % (AUTO) 26 % (12-44); MEAN CORPUSCULAR HEMOGLOBIN 30 pg (25-34); MEAN CORPUSCULAR HGB CONC 34 g/dL (32-36); MEAN CORPUSCULAR VOLUME 89 fL (80-99); MEAN PLATELET VOLUME 9.4 fL (9.0-12.2); MONOCYTES # (AUTO) 0.9 10^3/uL (0.0-1.0); MONOCYTES % (AUTO) 9 % (0-12); NEUTROPHILS # (AUTO) 6.3 10^3/uL (1.8-7.8); NEUTROPHILS % (AUTO) 60 % (42-75); PLATELET COUNT 296 10^3/uL (130-400); WHITE BLOOD COUNT 10.4 10^3/uL (4.3-11.0)
[2022-06-04 17:10] LABS: ALBUMIN 3.8 GM/DL (3.2-4.5); POTASSIUM 3.8 MMOL/L (3.6-5.0)
[2022-06-04 17:11] LABS: CALCIUM 8.7 MG/DL (8.5-10.1)
[2022-06-04 17:12] LABS: TOTAL PROTEIN 7.9 GM/DL (6.4-8.2)
[2022-06-04 17:14] LABS: BILIRUBIN,TOTAL 0.4 MG/DL (0.1-1.0); INR 0.9 (0.8-1.4); PROTHROMBIN TIME PATIENT 13.1 SEC (12.2-14.7)
[2022-06-04 17:16] LABS: CREATININE SERUM 0.95 MG/DL (0.60-1.30)
[2022-06-04 17:19] LABS: MAGNESIUM 2.3 MG/DL (1.6-2.4)
--- NOTE | 2022-06-04 17:26 | ED Chest Pain ---
General Chief Complaint: Chest Pain Stated Complaint: CHEST PAIN Nursing Triage Note: PT BROUGHT IN BY [facility] FOR CP AND TIGHTNESS. PT WAS BEING ARRESTED BY [facility] WHEN HE STARTED COMPLAINING OF PAIN. PT STATES HE WOKE UP WITH TIGHTNESS. 324 ASA AND 1 NITRO GIVEN BY EMS. Source: patient Exam Limitations: no limitations History of Present Illness Date Seen by Provider: Jun 04, 2022 Time Seen by Provider: 16:51 Initial Comments 37-year-old male presents to the ED via EMS with left-sided chest pain. States he has had chest tightness all day, but states it became worse when the resin coater started to talk to him about 20 minutes prior to arrival. States he has had a heart attack about 3 years ago, and had 2 stents placed. He also has hypertension. States he takes lisinopril, Plavix, and another blood pressure medication. Reports he has had a cough as well and mild shortness of air. Denies fevers, abdominal pain, nausea, vomiting. EMS gave 324 of aspirin and 1 nitro. Allergies and Home Medications Allergies Coded Allergies: No Known Drug Allergies (Unverified , 01/09/19) Patient Home Medication List Home Medication List Reviewed: Yes Aspirin (Aspirin EC) 81 Mg Tablet.dr, 81 MG PO DAILY Prescribed by: DENISE JAMES on 07/20/20 1400 Atorvastatin Calcium (Atorvastatin Calcium) 80 Mg Tablet, 80 MG PO HS Prescribed by: DENISE JAMES on 07/20/20 1400 Clopidogrel Bisulfate (Clopidogrel) 75 Mg Tablet, 75 MG PO DAILY Prescribed by: DENISE JAMES on 07/20/20 1400 Doxycycline Hyclate (Doxycycline Hyclate) 100 Mg Tablet, 100 MG PO BID Prescribed by: JOHNATHAN MUNSON on 11/09/21 1307 Lisinopril (Lisinopril) 5 Mg Tablet, 5 MG PO DAILY Prescribed by: DENISE JAMES on 07/20/20 1400 Sertraline HCl (Sertraline HCl) 50 Mg Tablet, 50 MG PO DAILY Prescribed by: DENISE JAMES on 07/20/20 1400 Review of Systems Review of Systems Constitutional: see HPI Past Xbonsxm-Qbpexm-Txhtxc Hx Patient Social History Tobacco Use?: Yes Tobacco type used: Cigarettes Smoking Status: Current Everyday Smoker Use of E-Cig and/or Vaping dev: No Substance use?: Yes Substance type: Methamphetamine Substance frequency: Daily Alcohol Use?: No Pt feels they are or have been: No Immunizations Up To Date Tetanus Booster (TDap): Less than 5yrs PED Vaccines UTD: Yes Seasonal Allergies Seasonal Allergies: No Past Medical History Surgery/Hospitalization HX: APPENDIX, AMI WITH 2 STENTS, CAD, HX OF IV METH USE, HTN Surgeries: Yes (CARDIAC STENT X2) Appendectomy, Cardiac, Coronary Stent Respiratory: No Cardiac: Yes Heart Attack, Hypertension Neurological: No Genitourinary: No Gastrointestinal: No Musculoskeletal: No Endocrine: No HEENT: No Cancer: No Psychosocial: No Anxiety Integumentary: No Blood Disorders: No Family Medical History Heart Disease Physical Exam Vital Signs Vital Signs - First Documented 06/04/22 16:47 Pulse 107 Resp 20 B/P (MAP) 127/97 (107) Pulse Ox 99 O2 Delivery Room Air Capillary Refill : Less Than 3 Seconds Height, Weight, BMI Height: '" Weight: lbs. oz. kg; 25.00 BMI Method: General Appearance: WD/WN, Mild Distress Neck: Normal Inspection, Supple Respiratory: Lungs Clear, Normal Breath Sounds, No Accessory Muscle Use, No Respiratory Distress Cardiovascular: Regular Rate, Rhythm, No Edema, No Gallop, No JVD, No Murmur Extremity: Normal Inspection, Normal Range of Motion Neurologic/Psychiatric: Alert, Oriented x3, No Motor/Sensory Deficits Skin: Normal Color, Warm/Dry Procedures/Interventions Suture Size: 4-0 Progress/Results/Core Measures Results/Orders Lab Results Laboratory Tests Test 06/04/22 16:53 Range/Units White Blood Count 10.4 4.3-11.0 10^3/uL Red Blood Count 4.87 4.30-5.52 10^6/uL Hemoglobin 14.8 13.3-17.7 g/dL Hematocrit 44 40-54 % Mean Corpuscular Volume 89 80-99 fL Mean Corpuscular Hemoglobin 30 25-34 pg Mean Corpuscular Hemoglobin Concent 34 32-36 g/dL Red Cell Distribution Width 11.5 10.0-14.5 % Platelet Count 296 130-400 10^3/uL Mean Platelet Volume 9.4 9.0-12.2 fL Immature Granulocyte % (Auto) 0 % Neutrophils (%) (Auto) 60 42-75 % Lymphocytes (%) (Auto) 26 12-44 % Monocytes (%) (Auto) 9 0-12 % Eosinophils (%) (Auto) 4 0-10 % Basophils (%) (Auto) 1 0-10 % Neutrophils # (Auto) 6.3 1.8-7.8 10^3/uL Lymphocytes # (Auto) 2.7 1.0-4.0 10^3/uL Monocytes # (Auto) 0.9 0.0-1.0 10^3/uL Eosinophils # (Auto) 0.4 H 0.0-0.3 10^3/uL Basophils # (Auto) 0.1 0.0-0.1 10^3/uL Immature Granulocyte # (Auto) 0.0 0.0-0.1 10^3/uL Prothrombin Time 13.1 12.2-14.7 SEC INR Comment 0.9 0.8-1.4 Activated Partial Thromboplast Time 28 24-35 SEC Sodium Level 139 135-145 MMOL/L Potassium Level 3.8 3.6-5.0 MMOL/L Chloride Level 103 98-107 MMOL/L Carbon Dioxide Level 24 21-32 MMOL/L Anion Gap 12 5-14 MMOL/L Blood Urea Nitrogen 15 7-18 MG/DL Creatinine 0.95 0.60-1.30 MG/DL Estimat Glomerular Filtration Rate 106 BUN/Creatinine Ratio 16 Glucose Level 89 70-105 MG/DL Calcium Level 8.7 8.5-10.1 MG/DL Corrected Calcium 8.9 8.5-10.1 MG/DL Magnesium Level 2.3 1.6-2.4 MG/DL Total Bilirubin 0.4 0.1-1.0 MG/DL Aspartate Amino Transf (AST/SGOT) 36 H 5-34 U/L Alanine Aminotransferase (ALT/SGPT) 46 0-55 U/L Alkaline Phosphatase 94 40-136 U/L Myoglobin 133.7 H 10.0-92.0 NG/ML Troponin I < 0.028 <0.028 NG/ML Total Protein 7.9 6.4-8.2 GM/DL Albumin 3.8 3.2-4.5 GM/DL My Orders Orders - GUIDO VALLECILLO APRN Ekg Tracing (06/04/22 16:51) Cbc With Automated Diff (06/04/22 17:01) Magnesium (06/04/22 17:01) Chest 1 View, Ap/Pa Only (06/04/22 17:01) Comprehensive Metabolic Panel (06/04/22 17:) Myoglobin Serum (06/04/22 17:) Protime With Inr (06/04/22 17:) Partial Thromboplastin Time (06/04/22 17:01) Monitor-Rhythm Ecg Trace Only (06/04/22 17:) Ed Iv/Invasive Line Start (06/04/22 17:) Troponin I [place] (06/04/22 17:01) Vital Signs/I&O 06/04/22 16:47 Pulse 107 Resp 20 B/P (MAP) 127/97 (107) Pulse Ox 99 O2 Delivery Room Air Blood Pressure Mean: 107 Progress Progress Note #1: Time: 17:00 Progress Note Patient seen and evaluated, resting on bed, mild distress. Based on exam and symptoms, concern for [place], musculoskeletal pain, anxiety, pneumonia. Work-up initially including CBC, CMP, myoglobin, coags, troponin, chest x-ray. Progress Note #2: Time: 17:41 Progress Note Labs and x-ray reviewed. CBC grossly normal, CMP grossly normal, AST slightly elevated at 36, troponin negative. Myoglobin 133.7. Chest x-ray shows no acute cardiopulmonary process. Progress Note #3: Time: 17:45 Progress Note Before this provider could review results with patient. Patient ran out of the ER. Attempts were made to stop him by calling to him. Please recall due to patient leaving with his IV in. This provider was unable to discuss risk and benefits of leaving against medical advice with patient. Plan was to repeat his troponin at the 3-hour cee due to history of an acute NJ. Initial ECG Impression Date: Jun 04, 2022 Initial ECG Impression Time: 16:55 Initial ECG Rate: 99 Initial ECG Rhythm: Normal Sinus Initial ECG Intervals: Normal Initial ECG Impression: Nonspecific Changes Initial ECG Comparisson: Changed Comment Insignificant Q waves noted to lead I, II, 3, V4, V5, V6. These were not present on EKG on 05/25/2022. They are present on EKG from 11/09/2021. Diagnostic Imaging Diagonstic Imaging: Xray Plain Films/CT/US/NM/MRI: chest Comments [facility], [place] NAME: GISELLE CELESTIN JR [facility] REC#: [id number] PT STATUS: REG ER : 1985 PHYSICIAN: GUIDO VALLECILLO APRN ADMIT DATE: 06/04/22/ER Draft Date of Exam:06/04/22 CHEST 1 VIEW, AP/PA ONLY INDICATION: Chest pain. COMPARISON: Prior examination from 05/25/2022. FINDINGS: The heart size, mediastinal configuration and pulmonary vascularity are within normal limits. There is no pleural effusion, pneumothorax or pneumonia. The osseous structures are unremarkable. IMPRESSION: No acute cardiopulmonary abnormality. Dictated on workstation # [id number] Dict: 06/04/22 172 Trans: 06/04/221722 [facility] [id number] Interpreted by: BRITTANY VIZCARRA MD Electronically signed by: Departure Impression Primary Impression: Chest pain, rule out acute myocardial infarction Disposition: AGAINST MEDICAL ADVICE Condition: Against Medical Advice Departure-Patient Inst. Referrals: NO,LOCAL PHYSICIAN (PCP/Family) Primary Care Physician GUIDO VALLECILLO APRN Jun 04, 2022 17:26
== END 2022-06-04 17:46 | disposition left against medical advice (07) ==
LOC: EDUNIT# 16:45 → ER 16:47
DX: R07.89 Other chest pain (principal); I10 Essential (primary) hypertension; F17.210 Nicotine dependence, cigarettes, uncomplicated; Z79.02 Long term (current) use of antithrombotics/antiplatelets; Z79.899 Other long term (current) drug therapy; Z95.5 Presence of coronary angioplasty implant and graft
CPT/HCPCS: 36415; 71045; 80053; 83735; 83874; 84484; 85025; 85610; 85730; 93005; 93041

== ENCOUNTER 2022-08-27 12:41 | Emergency (ER) | payer SELFPAY ==
[~2022-08-27] VITALS: Ht 187 cm; Wt 92.0 kg
[2022-08-27] MEDS ORDERED: KETOROLAC 60 MG/2 ML VIAL IM STA (12:59)
[2022-08-27] MEDS ORDERED: cefTRIAXone 1,000 MG VIAL (for IV or IM) IM STA (12:59)
[2022-08-27] MEDS ORDERED: AUGMENTIN 875 MG TAB (AMOXICILLIN/CLAVULANATE) PO STA (12:59)
[2022-08-27] MEDS ORDERED: LIDOCAINE 1% INJ 20 ML VIAL INJ ONE (13:00)
[2022-08-27] MEDS ORDERED: AMOX1TAB12 PO (13:03)
[2022-08-27] MEDS ORDERED: IBUP-1780 PO (13:03)
--- NOTE | 2022-08-27 13:08 | ED Integumentary General ---
General Chief Complaint: Bite-Animal/Human/Insect Stated Complaint: DOG BITE Source: patient History of Present Illness Date Seen by Provider: August 27, 2022 Time Seen by Provider: 12:43 Initial Comments 37-year-old male presenting with complaints of multiple dog bites. He reports that on August 24 he was attacked by a pit bull on the streets of [facility]. He did not speak with animal control or law enforcement. Today he was continuing to have pain and redness with swelling as well as he felt like there is decreased sensation to his left calf. Has primary bites around the left calf and right hand. He has redness and swelling to his right hand and there is some redness around the bites on his left leg. He has no streaking up his arm or up his leg. He is complaining of some pain into the left groin. He reports his last tetanus was 2 years ago. He did not have a primary care provider for follow-up. He denies any fever or chills. Timing/Duration: getting worse (Since August 24) Severity: moderate Location: hands, extremities (Right hand and bilateral lower extremities worse on the left) Possible Cause: other (Dog bites) Modifying Factors: worse with scratching Associated Symptoms: No blisters; change in skin texture (Erythema with some mild edema to his right hand); No fever, No flushing, No headache, No hives, No jaundice, No malaise, No nasal congestion, No numbness, No pallor; paresthesia (Tingling to the left calf); No petechiae, No sore throat, No swellin g/mass/lumps; tingling (Tingling to the left calf) Allergies and Home Medications Allergies Coded Allergies: No Known Drug Allergies (Unverified , 01/09/19) Patient Home Medication List Home Medication List Reviewed: Yes Amoxicillin/Potassium Clav (Amox Tr-K Clv 875-125 mg Tab) 875 Mg-125 Mg Tablet, 1 EACH PO BID Prescribed by: ARIELA ABRAMS on 08/27/22 1303 Aspirin (Aspirin EC) 81 Mg Tablet.dr 81 MG PO DAILY Prescribed by: DENISE JAMES on 07/20/20 1400 Atorvastatin Calcium (Atorvastatin Calcium) 80 Mg Tablet, 80 MG PO HS Prescribed by: DENISE JAMES on 07/20/20 1400 Clopidogrel Bisulfate (Clopidogrel) 75 Mg Tablet, 75 MG PO DAILY Prescribed by: DENISE JAMES on 07/20/20 1400 Doxycycline Hyclate (Doxycycline Hyclate) 100 Mg Tablet, 100 MG PO BID Prescribed by: JOHNATHAN MUNSON on 11/09/21 1307 Ibuprofen (Ibuprofen) 800 Mg Tablet, 800 MG PO Q8H PRN for PAIN Prescribed by: ARIELA ABRAMS on 08/27/22 1303 Lisinopril (Lisinopril) 5 Mg Tablet, 5 MG PO DAILY Prescribed by: DENISE JAMES on 07/20/20 1400 Sertraline HCl (Sertraline HCl) 50 Mg Tablet, 50 MG PO DAILY Prescribed by: DENISE JAMES on 07/20/20 1400 Review of Systems Review of Systems Constitutional: No chills, No fever EENTM: no symptoms reported Respiratory: no symptoms reported Cardiovascular: no symptoms reported Gastrointestinal: no symptoms reported Genitourinary: no symptoms reported Musculoskeletal: see HPI Skin: see HPI Psychiatric/Neurological: See HPI Past Mynofcq-Xevhgw-Ztyiio Hx Patient Social History Tobacco Use?: No Use of E-Cig and/or Vaping dev: No Substance use?: Yes Substance type: Amphetamines, Methamphetamine Additional substance use comme: PMH SHOWS PAST USE Alcohol Use?: No Pt feels they are or have been: No Immunizations Up To Date Tetanus Booster (TDap): Less than 5yrs PED Vaccines UTD: Yes Seasonal Allergies Seasonal Allergies: No Past Medical History Surgery/Hospitalization HX: APPENDIX, AMI WITH 2 STENTS, CAD, HX OF IV METH USE, HTN Surgeries: Yes (CARDIAC STENT X2) Appendectomy, Cardiac, Coronary Stent Respiratory: No Cardiac: Yes Heart Attack, Hypertension Neurological: No Genitourinary: No Gastrointestinal: No Musculoskeletal: No Endocrine: No HEENT: No Cancer: No Psychosocial: No Anxiety Integumentary: No Blood Disorders: No Family Medical History Heart Disease Physical Exam Vital Signs Vital Signs - First Documented 08/27/22 12:46 Temp 36.4 Pulse 113 Resp 16 B/P (MAP) 124/91 (102) Pulse Ox 96 O2 Delivery High Flow N/C Capillary Refill : General Appearance: WD/WN, no apparent distress HEENT: PERRL/EOMI Cardiovascular: normal peripheral pulses, tachycardia (Initial heart rate of 113 on obtaining vital signs. On exam his heart rate was decreased to 92 bpm.) Respiratory: chest non-tender, lungs clear, no respiratory distress, no accessory muscle use Gastrointestinal: normal bowel sounds, non tender, soft, no pulsatile mass Extremities: normal range of motion, normal capillary refill, inflammation (Right hand erythematous with mild swelling. No purulent drainage and no fluctuance. Tender to the left calf around skin wounds from a bite and no induration, fluctuance, drainage.) Neurologic/Psychiatric: end matcher II-XII nml as tested, alert, oriented x 3 Skin: warm/dry Skin Problem Location: upper extremities (Right hand with some erythema and mild swelling with puncture wounds), lower extremities (Areas of abrasion and possible bite to the left lateral calf on the proximal aspect. There is mild erythema and tenderness in this area. No purulence, fluctuance, drainage. He has multiple other small punctate areas that appear almost like a folliculitis or like he was picking at the skin but patient states that they are all from wounds with fighting off the pitbull.) Procedures/Interventions Suture Size: 4-0 Progress/Results/Core Measures Results/Orders My Orders Orders - ARIELA ABRAMS MD Ceftriaxone Iv/Im (Rocephin Iv/Im) (08/27/22 12:59) Ketorolac Injection (Toradol Injection) (08/27/22 12:59) Lidocaine 1% Inj 20 Ml (Xylocaine 1% Inj (08/27/22 13:00) Amoxicillin/Clavulanate Tablet (Augmenti (08/27/22 12:59) Medications Given in ED Current Medications Medications Dose Ordered Sig/Yaneli Route Start Time Stop Time Status Last Admin Dose Admin Lidocaine HCl 2.1 ml ONCE ONCE INJ 08/27/22 13:00 08/27/22 13:01 DC 08/27/22 13:07 2.1 ML Vital Signs/I&O 08/27/22 08/27/22 12:46 13:11 Temp 36.4 36.4 Pulse 113 113 Resp 16 16 B/P (MAP) 124/91 (102) 124/91 Pulse Ox 96 96 O2 Delivery High Flow N/C High Flow N/C Progress Progress Note : Progress Note Potential diagnosis of cellulitis from infected dog bite, cellulitis from IV drug use, multiple puncture wounds. Administer Rocephin 1 g IM to help with infection, started on Augmentin 875 mg p.o. x1. Toradol 60 mg IM for pain and inflammation. Encouraged to keep the wounds clean with soap and water. He reports having a tetanus shot 2 years ago so we will defer repeating that. take the full course of antibiotics to treat for cellulitis from dog bites. Check back with the clinic or establish care for follow-up. Counseled that if his symptoms are worsening in the next 36 to 48 hours he likely would need IV antibiotics and he should consider going to an emergency department with a hospital. Departure Impression Primary Impression: Dog bite of multiple sites of right hand and fingers Qualified Codes: S61.451A - Open bite of right hand, initial encounter; S61.259A - Open bite of unspecified finger without damage to nail, initial encounter; W54.0XXA - Bitten by dog, initial encounter Additional Impressions: Dog bite of multiple sites of left lower extremity Qualified Codes: S81.852A - Open bite, left lower leg, initial encounter; W54.0XXA - Bitten by dog, initial encounter Dog bite of multiple sites of right lower extremity Qualified Codes: S81.851A - Open bite, right lower leg, initial encounter; W54.0XXA - Bitten by dog, initial encounter Disposition: 01 HOME, SELF-CARE Condition: Stable Departure-Patient Inst. Decision time for Depature: 13:02 Referrals: NO,LOCAL PHYSICIAN (PCP) Primary Care Physician [facility] Patient Instructions: Animal Bites ED, Wound Care ED Add. Discharge Instructions: Keep wounds clean with soap and water. Make sure that you take the complete course of antibiotics to help treat for infection from the dog bites. If you are not seeing improvement or if symptoms are worsening after 36 to 48 hours of antibiotics then you should be reevaluated at an emergency department with a hospital in case you need to be admitted for IV antibiotics. You may take ibuprofen and acetaminophen as directed over the counter for helping with pain and inflammation. Establish with primary care provider for follow up about your dog bites and the numbness/tingling to your right calf. If that is not improving then the clinic may need to do some nerve studies to evaluate for damaged nerves. [facility] clinic can be reached by calling [phone] to set up follow up All discharge instructions reviewed with patient and/or family. Voiced understanding. Scripts Ibuprofen (Ibuprofen) 800 Mg Tablet 800 MG PO Q8H PRN for PAIN for 10 Days, #30 TAB 0 Refills Prov: ARIELA ABRAMS MD 08/27/22 Amoxicillin/Potassium Clav (Amox Tr-K Clv 875-125 mg Tab) 875 Mg-125 Mg Tablet 1 EACH PO BID for dog bites for 10 Days, #20 TAB 0 Refills Prov: ARIELA ABRAMS MD 08/27/22 ARIELA ABRAMS MD August 27, 2022 13:07
[2022-08-27 13:11] VITALS: BP 124/91
== END 2022-08-27 13:13 | disposition home or self-care (01) ==
LOC: EDUNIT# 12:41 → ER FS 12:43
DX: S61.239A Puncture wound without foreign body of unspecified finger without damage to nail, initial encounter (principal); S81.831A Puncture wound without foreign body, right lower leg, initial encounter; S81.832A Puncture wound without foreign body, left lower leg, initial encounter; W54.0XXA Bitten by dog, initial encounter; Y92.410 Unspecified street and highway as the place of occurrence of the external cause
CPT/HCPCS: 99284

== ENCOUNTER 2022-08-29 12:38 | Emergency (ER) | payer SELFPAY ==
[~2022-08-29 12:38] MED LIST changes: +AMOX1TAB12 PO; +IBUP-1780 PO
--- NOTE | 2022-08-29 13:02 | ED Integumentary General ---
General Chief Complaint: Bite-Animal/Human/Insect Stated Complaint: INFECTION Source: patient Exam Limitations: no limitations History of Present Illness Date Seen by Provider: August 29, 2022 Time Seen by Provider: 13:01 Initial Comments Patient is a 37-year-old male who presents to the emergency room with a chief complaint of left calf dog bite, right hand pain. Patient states this happened on . He punched the dog after it bit him. Uncertain if the dog bit his hand as well. He states he walked from [place] to [place] today. Concerned about infection. Last tetanus 3 years ago. Patient states that he knows the dog is up-to-date on his vaccinations. No allergies to medications. Admits to illicit drug use. Patient states that he was able to clean the wound thoroughly. Mild to moderate pain. Timing/Duration: other (6 days ago) Location: hands, extremities (left lower) Possible Cause: other (dog bite) Associated Symptoms: edema, rash Allergies and Home Medications Allergies Coded Allergies: No Known Drug Allergies (Unverified , 01/09/19) Patient Home Medication List Home Medication List Reviewed: Yes Amoxicillin/Potassium Clav (Amox Tr-K Clv 875-125 mg Tab) 875 Mg-125 Mg Tablet, 1 EACH PO BID Prescribed by: ARIELA ABRAMS on 08/27/22 1303 Aspirin (Aspirin EC) 81 Mg Tablet.dr, 81 MG PO DAILY Prescribed by: DENISE JAMES on 07/20/20 1400 Atorvastatin Calcium (Atorvastatin Calcium) 80 Mg Tablet, 80 MG PO HS Prescribed by: DENISE JAMES on 07/20/20 1400 Clopidogrel Bisulfate (Clopidogrel) 75 Mg Tablet, 75 MG PO DAILY Prescribed by: DENISE JAMES on 07/20/20 1400 Doxycycline Hyclate (Doxycycline Hyclate) 100 Mg Tablet, 100 MG PO BID Prescribed by: JOHNATHAN MUNSON on 11/09/21 1307 Ibuprofen (Ibuprofen) 800 Mg Tablet, 800 MG PO Q8H PRN for PAIN Prescribed by: ARIELA ABRAMS on 08/27/22 1303 Lisinopril (Lisinopril) 5 Mg Tablet, 5 MG PO DAILY Prescribed by: DENISE JAMES on 07/20/20 1400 Sertraline HCl (Sertraline HCl) 50 Mg Tablet, 50 MG PO DAILY Prescribed by: DENISE JAMES on 07/20/20 1400 Review of Systems Review of Systems Constitutional: see HPI EENTM: no symptoms reported Respiratory: no symptoms reported Cardiovascular: no symptoms reported Gastrointestinal: no symptoms reported Musculoskeletal: other (right hand pain and swelling, middle finger) Skin: other (left calf) All Other Systems Reviewed Negative Unless Noted: Yes Past Knbuybr-Bjomcb-Fqjyar Hx Immunizations Up To Date Tetanus Booster (TDap): Less than 5yrs PED Vaccines UTD: Yes Seasonal Allergies Seasonal Allergies: No Past Medical History Surgery/Hospitalization HX: APPENDIX, AMI WITH 2 STENTS, CAD, HX OF IV METH USE, HTN Surgeries: Yes (CARDIAC STENT X2) Appendectomy, Cardiac, Coronary Stent Respiratory: No Cardiac: Yes Heart Attack, Hypertension Neurological: No Genitourinary: No Gastrointestinal: No Musculoskeletal: No Endocrine: No HEENT: No Cancer: No Psychosocial: No Anxiety Integumentary: No Blood Disorders: No Family Medical History Heart Disease Physical Exam Vital Signs Vital Signs - First Documented 08/29/22 12:40 Temp 36.9 Pulse 89 Resp 18 B/P (MAP) 134/88 (103) Pulse Ox 99 O2 Delivery Room Air Capillary Refill : General Appearance: WD/WN, no apparent distress HEENT: PERRL/EOMI Cardiovascular: regular rate, rhythm Respiratory: lungs clear, normal breath sounds, no respiratory distress, no accessory muscle use Extremities: other (swelling and tendernessright ring finger; most erythema dorsal prox phalanx) Neurologic/Psychiatric: alert, normal mood/affect, oriented x 3 Skin: warm/dry, other (left posterior calf - healing wound with surrounding erythema about 12-15cm. no drainage.) Skin Problem Location: lower extremities Procedures/Interventions Suture Size: 4-0 Progress/Results/Core Measures Results/Orders My Orders Orders - KELLY AYALA MD Hand, Right, 3 Views (08/29/22 13:08) Amoxicillin/Clavulanate Tablet (Augmenti (08/29/22 13:08) General/Regular (08/29/22 Lunch) Vital Signs/I&O 08/29/22 12:40 Temp 36.9 Pulse 89 Resp 18 B/P (MAP) 134/88 (103) Pulse Ox 99 O2 Delivery Room Air Diagnostic Imaging Diagonstic Imaging: Xray Comments [facility], [place] NAME: GISELLE CELESTIN JR [facility] REC#: [id number] PT STATUS: REG ER : 1985 PHYSICIAN: KELLY AYALA MD ADMIT DATE: 08/29/22/ER Draft Date of Exam:08/29/22 HAND, RIGHT, 3 VIEWS INDICATION: Right hand injury with pain. AP, oblique and lateral views of right hand are obtained. There is no acute fracture or malalignment identified. Corticated old radial stylus fragment is present. There is no evidence of lytic or sclerotic lesion and no radiopaque foreign body is seen. IMPRESSION: No evidence of acute abnormality. Dictated on workstation # [id number] Dict: 08/29/22 1328 Trans: 08/29/22 1332 [id number] Interpreted by: SHILA DALAL MD Electronically signed by: Departure Impression Primary Impression: Dog bite Qualified Codes: W54.0XXA - Bitten by dog, initial encounter Additional Impression: Finger contusion Qualified Codes: S60.041A - Contusion of right ring finger without damage to nail, initial encounter Disposition: 01 HOME, SELF-CARE Condition: Stable Departure-Patient Inst. Decision time for Depature: 14:00 Referrals: [facility]/DANIEL JIANG,LOCAL PHYSICIAN (PCP) Primary Care Physician Patient Instructions: Animal Bites ED Add. Discharge Instructions: The wounds with a mild soap and water every day. Take the antibiotics twice a day until they are gone for a total of 7 days. If you develop a fever, worsening redness, drainage of pus or any other emergent, concerning symptoms please come back to the emergency room for reevaluation. Czzc-biz-slyqgmk Tylenol and/or ibuprofen as needed for pain. Please follow packaging instructions. Scripts Amoxicillin/Potassium Clav (Amox Tr-K Clv 875-125 mg Tab) 875 Mg-125 Mg Tablet 1 EACH PO BID for 7 Days, #13 TAB Prov: KELLY AYALA MD 08/29/22 KELLY AYALA MD August 29, 2022 13:02
[2022-08-29] MEDS ORDERED: AUGMENTIN 875 MG TAB (AMOXICILLIN/CLAVULANATE) PO STA (13:08)
--- NOTE | 2022-08-29 13:32 | Diagnostic Imaging Report ---
INDICATION: Right hand injury with pain. AP, oblique and lateral views of right hand are obtained. There is no acute fracture or malalignment identified. Corticated old radial stylus fragment is present. There is no evidence of lytic or sclerotic lesion and no radiopaque foreign body is seen. IMPRESSION: No evidence of acute abnormality. Dictated by: Dictated on workstation # [id number]
[2022-08-29] MEDS ORDERED: AMOX1TAB12 PO (14:03)
[2022-08-29 14:20] VITALS: BP 130/88
== END 2022-08-29 14:20 | disposition home or self-care (01) ==
LOC: EDUNIT# 12:38 → ER 12:39
DX: S60.041A Contusion of right ring finger without damage to nail, initial encounter (principal); W54.0XXA Bitten by dog, initial encounter
CPT/HCPCS: 73130